=== PATIENT | male | born 1970 | race Caucasian/White ===

== ENCOUNTER 2018-09-14 13:35 | Inpatient (IN) | payer OTHER ==
[~2018-09-14] VITALS: Ht 172.7 cm; Wt 101.8 kg
--- NOTE | 2018-09-14 13:42 | NUR ---
PATIENT PAUL FROM [facility]. C/O ABD PAIN X2 DAYS. SHARP IN NATURE: 11/01. PATIENT IS AAOX4. DENIES HEADACHE AND C/O DIZZINESS UPON MOVEMENT. DENIES HEMATURIA, HEMATEMESIS AND RECTAL BLEEDING. PATIENT PLACED IN TRENDELENBERG. JHON DU.
--- NOTE | 2018-09-14 13:49 | NUR ---
DR SEPULVEDA AT BEDSIDE. MADE AWARE OF PATIENT SITUATION.
--- NOTE | 2018-09-14 14:02 | NUR ---
RT AT BEDSIDE.
--- NOTE | 2018-09-14 14:06 | NUR ---
LAB AT BEDSIDE.
--- NOTE | 2018-09-14 14:15 | NUR ---
PATIENT EXPERIENCING SPLTTING BACK PAIN. DR SEPULVEDA AWARE. PULSES PALP TO JAIDEN FEET. BLE WARM AND MCCRAY.
--- NOTE | 2018-09-14 14:21 | NUR ---
X-RAY AT BEDSIDE FOR CXR.
--- NOTE | 2018-09-14 14:34 | NUR ---
STARTED LEVOPHED AT 2MCG/MIN PER EMAR.
--- NOTE | 2018-09-14 14:37 | NUR ---
US AT BEDSIDE. PT REMAINS C/O 10/10 MID LOWER ABD PAIN. DR SEPULVEDA AWARE.
[2018-09-14] MEDS ORDERED: GOOD SENSE OMEP20 MG PO (14:40)
[2018-09-14] MEDS ORDERED: PROPRANOLOL HCL20 MG PO (14:40)
--- NOTE | 2018-09-14 14:41 | NUR ---
LEVOPHED TITRATED UP TO 4MCG /MIN. IV SITE TO ROSITA ASSESSED AND REMAINS INTACT. NO S/S INFILTRATION.
[2018-09-14 14:44] LABS: PLATELET COUNT 50 x10^3mcL (130-400); RED CELL DISTRIBUTION WIDTH 17.6 % (11.5-14.5)
[2018-09-14 14:46] LABS: CALCIUM 8.2 mg/dL (8.5-10.1); CARBON DIOXIDE 20.8 mmol/L (21-32); CHLORIDE SERUM 105 mmol/L (98-107); CREATININE SERUM 2.5 mg/dL (0.7-1.3); GFR1 30 mL/min; GLUCOSE SERUM 68 mg/dL (74-106); POTASSIUM SERUM 3.9 mmol/L (3.5-5.1); SODIUM SERUM 139 mmol/L (136-145)
--- NOTE | 2018-09-14 14:47 | NUR ---
LEVOPHED TITRATED TO 6MCG/MIN PER EMAR.
[2018-09-14 14:48] LABS: CK-MB 0.7 ng/mL (0-3.6)
[2018-09-14 14:50] LABS: FREE T4 1.38 ng/dL (0.76-1.46); FREE THYROXINE INDEX 2.8 ug/dL (1.4-4.5); T4(THYROXINE) 7.3 ug/dL (4.7-13.3)
[2018-09-14 14:52] LABS: T3 TOTAL 0.92 ng/mL
--- NOTE | 2018-09-14 14:54 | NUR ---
LEVOPHED TITRATED TO 8MCG/MIN PER EMAR.
--- NOTE | 2018-09-14 14:56 | NUR ---
ROSITA IV INFILTRATED. LEVOPHED GTT MOVED TO RIGHT HAND. REMAINS INFUSING AT 8MCG/MIN.
--- NOTE | 2018-09-14 15:05 | NUR ---
IV TO RIGHT HAND INFILTRATED. LEVOPHED GTT STOPPED AT THIS TIME.
--- NOTE | 2018-09-14 15:07 | NUR ---
PT SIGNED SPECIAL PROCEDURE CONSENT FOR CENTRAL LINE PLACEMENT. PLACED IN CHART
[2018-09-14 15:09] LABS: SEGMENTED NEUTROPHILS 52 % (37-75)
[2018-09-14 15:10] LABS: ATYPICAL LYMPH 0 %; BAND NEUTROPHIL 16 % (0-10); BASOPHIL 0 % (0-2); MONOCYTE 0 % (0-7); rbc morphology (normal/abnorm) ABNORMAL (NORMAL)
[2018-09-14 15:11] LABS: PLATELET MORPHOLOGY PLATELETS DECREASED
--- NOTE | 2018-09-14 15:12 | NUR ---
DR SEPULVEDA AT BEDSIDE TO PLACE CENTRAL LINE.
[2018-09-14 15:16] LABS: ALKALINE PHOSPHATASE 109 U/L (46-116); ALT/SGPT 116 U/L (16-63); AST/SGOT 192 U/L (15-37); BILIRUBIN TOTAL 3.3 mg/dL (0.20-1.00); C REACTIVE PROTEIN 0.8 mg/dL (<=0.9); TOTAL PROTEIN, SERUM 6.4 g/dL (6.4-8.2)
[2018-09-14 15:28] LABS: ALBUMIN 2.7 g/dL (3.4-5.0)
--- NOTE | 2018-09-14 15:29 | NUR ---
VERBAL ORDER PER DR SEPULVEDA FOR 500CC BOLUS. LEVOPHED TO BE HELD UNTIL 500CC BOLUS COMPLETE.
[2018-09-14 15:36] LABS: ERYTHROCYTE SED RATE 7 mm/hr (0-15)
--- NOTE | 2018-09-14 15:44 | NUR ---
X-RAY AT BEDSIDE TO CONFIRM PLACEMENT OF CENTRAL LINE.
--- NOTE | 2018-09-14 15:52 | NUR ---
PER DR SEPULVEDA VISUALIZED CENTRAL LINE PLACEMENT. OKAY TO START 500CC BOLUS AT THIS TIME. BOLUS STARTED TO RIGHT CENTRAL LINE DARK [place]UE [place].
--- NOTE | 2018-09-14 16:06 | NUR ---
PATIENT PROVIDED WITH WARM BLANKET. AFEBRILE. TEMP 98.7.
--- NOTE | 2018-09-14 16:37 | NUR ---
LEVOPHED RESTARTED AT 2MCG/MIN IV
--- NOTE | 2018-09-14 17:37 | NUR ---
PT REPORTS 9O INTERMITTENT BACK PAIN AND HIP CRAMPING; AWARE. REMAINS ON LEVOPHED AT 8MCG/MIN
--- NOTE | 2018-09-14 18:06 | NUR ---
REPORT CALLED TO ICU AND GIVEN TO DENISE POWELL.
--- NOTE | 2018-09-14 18:18 | NUR ---
RECIEVED PT VIA GUERNEY ACCOMPANIED BY MICHELLE RN, EDGE WORKER, AND 2 OFFICERS. PT AAOX4. ABLE TO FOLLOW COMMANDS. PERRL NOTED. DENIES HEADACHE. EENT FREE OF DISCHARGE. TRACHEA MIDLINE. NO JVD PRESENT. ON ROOM AIR. BREATHING E/U. CLEAR LUNG SOUNDS TO BUL, DIM TO BLL. SYMMETRICAL CHEST WALL EXPANSION NOTED. DENIES SOB. NO S/S OF RESP DISTRESS NOTED. SINUS TACHY. HR = 102. O2 SAT = 97%. BP = 115/67 (80). SKIN IS WARM/DRY TO TOUCH, MCCRAY/BROWN IN COLOR. R SUBCLAVIAN CVC INTACT, X3 PORTS PATENT, DRESSING CDI. LEVOPHED INFUSING @ 8MCG/MIN. MOD PALPABLE PULSES X4. CAP REFILL <3 SEC. NO EDEMA NOTED. ABD IS ROUNDED AND TENDER. HYPOACTIVE BOWEL SOUNDS X4. NO BM AT THIS TIME. NO PENILE DISCHARGE OR BLEEDING NOTED. NO SCROTAL EDEMA NOTED. VOIDS FREELY VIA URINAL. TRACK [place] TO BLE DUE TO HX OF DRUG ABUSE. DARKENED AREAS TO B/E SHINS NOTED. DRY CRACKLY SKIN TO B/E FEET/HEELS NOTED. R FOOT HANDCUFFED TO BED. 2 OFFICERS AT BEDSIDE.
--- NOTE | 2018-09-14 18:25 | NUR ---
LEVOPHED INFUSING PER EMAR AT 8MCG/MIN. PATIENT AAOX4. TRANSFERRED ON CM WITH DANCE THERAPIST AND MYSELF. DENISE POWELL AT BEDSIDE TO RECEIVE PATIENT.
--- NOTE | 2018-09-14 18:30 | NUR ---
TITRATED LEVOPHED TO 6 MCG/MIN TO ACHIEVE MAP OF 65.
[2018-09-14 18:36] VITALS: BP 115/67
--- NOTE | 2018-09-14 18:54 | NUR ---
TITRATED LEVOPHED TO 5 MCG/MIN. PT'S MAP OF 67.
--- NOTE | 2018-09-14 19:05 | NUR ---
RECEIVED GROUP REPORT FROM MIGUEL WALKER. WILL RESUME CARE.
--- NOTE | 2018-09-14 19:10 | NUR ---
TITRATED LEVOPHED GTT FROM 5MCG/MIN TO 6MCG/MIN. BP 91/45. MAP 60.
--- NOTE | 2018-09-14 19:30 | NUR ---
DR. CASANOVA AT BEDSIDE ASSESSING PT. UPDATES PROVIDED.
--- NOTE | 2018-09-14 19:52 | NUR ---
PT C/O BACK AND ABDOMINAL PAIN 08/31. GIVEN NORCO 5/325MG PO 1 TAB PO. WILL REASSESS FOR RELIEF.
[2018-09-14 20:30] VITALS: BP 115/67
--- NOTE | 2018-09-14 20:37 | NUR ---
1 L FLUID BOLUS STARTED AT THIS TIME PER DR. CASANOVA.
--- NOTE | 2018-09-14 21:00 | NUR ---
RIJ CVC DRESSING HAS MODERATE DRIED BLOOD TO DRESSING. DRESSING REMOVED AND SITE WAS CLEANSED WITH CHOROHEXIDINE SCRUB UTILIZING STERILE TECHNIQUE, NEW DRESSING PLACED AND DATED.
--- NOTE | 2018-09-14 21:28 | NUR ---
CANCELLED DR Fany BELTRAN CONSULT THAT WAS VERBALLY ORDERED BY DR CASANOVA. HAD ORDERED .
--- NOTE | 2018-09-14 21:37 | NUR ---
LITER FLUID BOLUS COMPLETED. BP IS 111/61, MAP 76. LEVO TITRATED DOWN FROM 6 MCG/MIN TO 5 MCG/MIN.
[2018-09-14 21:45] VITALS: BP 103/82
--- NOTE | 2018-09-14 23:30 | NUR ---
LEVO INCREASED TO 7 MCG/MIN DUE TO BP OF 100/45 MAP 64.
--- NOTE | 2018-09-14 23:35 | NUR ---
PATIENT GIVEN TYLENOL PER EMAR FOR TEMP OF 100.1.
[2018-09-15] VITALS (7 sets, daily range): BP systolic 82–111; BP diastolic 32–63
--- NOTE | 2018-09-15 | NUR ---
LEVO INCREASED TO 9 MCG/MIN FOR BP 92/47, MAP 57.
--- NOTE | 2018-09-15 00:15 | NUR ---
LEVO INCREASED TO 12 MCG/ MIN FOR BP 87/37 MAP 56.
--- NOTE | 2018-09-15 00:45 | NUR ---
LEVO INCREASED TO 14 MCG/MIN FOR BP OF 82/39, MAP 58.
--- NOTE | 2018-09-15 01:00 | NUR ---
LEVO INCREASED TO 16 MCG/MIN FOR BP OF 82/31 MAP OF 51.
--- NOTE | 2018-09-15 01:20 | NUR ---
NS 500ML BOLUS GIVEN DUE TO TO LOW B/P. B/P 82/31. MAP 51.
--- NOTE | 2018-09-15 01:27 | NUR ---
KATHY STARTED AT THIS TIME AT 50 MCG/MIN FOR BP OF 84/34, MAP 50.
--- NOTE | 2018-09-15 01:45 | NUR ---
KATHY INCREASED TO 100 MCG/MIN FOR BP OF 46/30 MAP 35.
--- NOTE | 2018-09-15 01:57 | NUR ---
KATHY INCREASED TO 75 MCG/MIN FOR BP OF 46/30 MAP 35.
--- NOTE | 2018-09-15 01:58 | NUR ---
BLOOD PRESSURE STABILIZED AT 104/63, MAP 75.
[2018-09-15 02:28] LABS: AMPHETAMINE QUAL UR POSITIVE (See below)
[2018-09-15 02:42] LABS: UA SPECIFIC GRAVITY >=1.030 (1.005-1.035); microscopic required? YES; urine erythrocyte 3+ (NEGATIVE)
--- NOTE | 2018-09-15 03:20 | NUR ---
TITRATED KATHY-SYNEPHRINE TO 100MCG/MIN. BP 94/44. MAP 61.
--- NOTE | 2018-09-15 03:26 | NUR ---
PATIENT GIVEN TYLENOL PER EMAR FOR HEADACHE.
--- NOTE | 2018-09-15 03:36 | NUR ---
PATIENT GIVEN PHENERGAN PER EMAR FOR NAUSEA.
--- NOTE | 2018-09-15 04:38 | NUR ---
CARDIOGRAPH OPERATOR AT BEDSIDE FOR BLOOD DRAW.
[2018-09-15 04:51] LABS: BASOPHIL % 0 % (0-2); RED CELL DISTRIBUTION WIDTH 17.9 % (11.5-14.5)
[2018-09-15 04:52] LABS: PLATELET COUNT 12 x10^3mcL (130-400)
[2018-09-15 04:57] LABS: CALCIUM 7.3 mg/dL (8.5-10.1); CARBON DIOXIDE 13.5 mmol/L (21-32); POTASSIUM SERUM 4.9 mmol/L (3.5-5.1)
--- NOTE | 2018-09-15 05:20 | NUR ---
SPOKE WITH DR. SUE ON THE TELEPHONE REGARDING LAB VALUES PLT 12, WBC 13.0, BUN 34.0, CREAT 4.0. NO NEW ORDERS AT THIS TIME.
--- NOTE | 2018-09-15 05:50 | NUR ---
TITRATED KATHY-SYNEPHRINE FROM 100MCG/MIN TO 125MCG/MIN. BP 85/47. MAP 61.
--- NOTE | 2018-09-15 07:20 | NUR ---
DR. BURRELL IS AT BEDSIDE ASSESSING THE PATIENT.
--- NOTE | 2018-09-15 08:35 | NUR ---
PATIENT ASSISTED TO BEDSIDE COMMODE. PATIENT PASSED MODERATE AMOUNT OF FORMED STOOL MIXED WITH URINE. PATIENT ASSISTED BACK INTO BED WITHOUT INCIDENT. CIM GUARDS REMAIN AT BEDSIDE.
--- NOTE | 2018-09-15 08:45 | NUR ---
DR CASANOVA AT BEDSIDE TO ASSESS PATIENT. UPDATES PROVIDED BY NURSING INCLUDING CVP OF 2. PER DR CASANOVA, BOLUS OF 1 LITER LR INITIATED AT THIS TIME. WILL CONTINUE TO MONITOR.
--- NOTE | 2018-09-15 08:57 | NUR ---
THE ALLERGY PHYSICIAN IS AT BEDSIDE FOR BLOOD DRAW FOR TYPE AND SCREEN.
--- NOTE | 2018-09-15 09:05 | NUR ---
IVF OF D5NS INCREASED FROM 100 ML/HR TO 150 ML/HR.
--- NOTE | 2018-09-15 09:10 | NUR ---
PATIENT'S BP 113/58, MAP 76. LEVOPHED TITRATED FROM 16 MCG/MIN TO 14 MCG/MIN. WILL CONTINUE TO MONITOR CLOSELY.
--- NOTE | 2018-09-15 09:17 | NUR ---
BP 109/64 WITH MAP 81; NEOSYN WAS TITRATED FROM 125MCG/MIN DOWN TO 100MCG/MIN.
--- NOTE | 2018-09-15 09:31 | NUR ---
BP 100/61 MAP 74; LEVEPHED IS TITRATED FROM 14MCG/MIN DOWN TO 13MCG/MIN.
--- NOTE | 2018-09-15 09:40 | NUR ---
DR. SUH IS AT BEDSIDE ASSESSING THE PATIENT. UPDATE PROVIDED TO THE DOCTOR.
--- NOTE | 2018-09-15 10:19 | NUR ---
DR. SUE IS AT BEDSIDE EXAMING THE PATIENT. UPDATE PROVIDED TO THE DOCTOR.
--- NOTE | 2018-09-15 10:20 | NUR ---
DR SUE SPOKE WITH PATIENT REGARDING BLOOD TRANSFUSION. BENEFITS AND RISKS DISCUSSED. PATIENT STATED HE HAS HAD A TRANSFUSION BEFORE AND AGREES AT THIS TIME. CONSENT OBTAINED AND PLACED IN CHART.
--- NOTE | 2018-09-15 10:35 | NUR ---
BP 80/37 (51); NEOSYN TITRATED FROM 100MCG/MIN UP TO 125MCG/MIN.
--- NOTE | 2018-09-15 11:45 | NUR ---
BP 111/59 AND MAP 77; NEOSYN WAS TITRATED FROM 125MCG/MIN DOWN TO 100MCG/MIN.
--- NOTE | 2018-09-15 12:07 | NUR ---
PATIENT'S BP 118/67, MAP 84. LEVOPHED TITRATED TO 11 MCG/MIN.
--- NOTE | 2018-09-15 13:03 | NUR ---
BP 111/75 (87); LEVEPHED WAS TITRATED FROM 11MCG/MIN DOWN TO 9MCG/MIN.
--- NOTE | 2018-09-15 14:52 | NUR ---
AT 1437: INITIATING PLATELET TRANSFUSION. VS: TEMP 98.0, HR 107, BP 99/49, RR 27, AND O2 SAT 100%. PATIENT WAS INSTRUCTED TO NOTIFIED THE NURSE FOR ANY ADVERSE REACTION. PATIENT VERBALIZED UNDERSTANDING. AT 1452: RECHECKING THE PATIENT IN 15MIN OF PLT TRANSFUSION; PATIENT DENIES ANY ADVERSE REACTION AT THIS TIME. TEMP 99.0, HR 89, BP 120/76, RR 34, AND O2 SAT 98%.
--- NOTE | 2018-09-15 15:03 | NUR ---
BP 125/65 AND MAP 85; LEVEPHED TITRATED FROM 9MCG/MIN DOWN TO 7MCG/MIN.
--- NOTE | 2018-09-15 15:32 | NUR ---
BP 107/66 AND MAP 82; LEVOPHED TITRATED FROM 7MCG/MIN DOWN TO 5MCG/MIN.
--- NOTE | 2018-09-15 15:39 | NUR ---
PLATELET TRANSFUSION 1 UNIT COMPLETED. PATIENT DENIES ANY ADVERSE REACTION. VS CHECKED: TEMP 98.4, HR 104, BP 112/56, RR 34, PO2 100%.
--- NOTE | 2018-09-15 16:04 | NUR ---
SPOKE WITH DR CASANOVA VIA TELEPHONE AND PROVIDED PATIENT UPDATE. PER DR CASANOVA, PLACE PATIENT ON NASAL CANNULA 2LPM AND CONTINUE TO DECREASE THE VASOPRESSORS. WILL ENDORSE TO PRIMARY RN [place].
--- NOTE | 2018-09-15 16:16 | NUR ---
LEVOPHED TITRATED UP TO 7 MCG/MIN FROM 5 MCG/MIN FOR BP 76/28 (50).
--- NOTE | 2018-09-15 18:50 | NUR ---
THE BP 123/67 AND MAP 86; LEVEPHED TITRATED FROM 7MCG/MIN DOWN TO 5MCG/MIN.
--- NOTE | 2018-09-15 19:10 | NUR ---
RECIEVED REPORT FROM LINETTE WALKER. WILL RESUME CARE.
[2018-09-15 20:07] LABS: CREATININE UR 302.1 mg/dL
--- NOTE | 2018-09-15 20:25 | NUR ---
INITIATED 1L NS BOLUS PER DR. CASANOVA ORDER IF CVP <6. CVP 2.
--- NOTE | 2018-09-15 20:45 | NUR ---
PT C/O NAUSEA. GIVEN PHENERGAN 12.5MG IVP. WILL CONTINUE TO MONITOR.
[2018-09-16] VITALS (15 sets, daily range): BP systolic 83–121; BP diastolic 30–71
--- NOTE | 2018-09-16 00:10 | NUR ---
LEVOPHED GTT DECREASED TO 4MCG/MIN. BP 115/78. MAP 88.
--- NOTE | 2018-09-16 00:22 | NUR ---
PT AGITATED. GAVE ATIVAN 1MG PO. WILL REASSESS PT FOR EFFECTIVENESS.
--- NOTE | 2018-09-16 02:30 | NUR ---
PT CONFUSED AND HALLUCINATING AFTER CHARGE NURSE ADMINISTERED AMBIEN 5MG PO. AAOX1 AT THIS TIME. WILL CONTINUE TO MONITOR.
--- NOTE | 2018-09-16 02:49 | NUR ---
PT DESAT TO 79%. INCREASED O2 FROM 2L TO 5L VIA NC. PT IS TACHYPNEIC. RR 32. RT AT BEDSIDE FOR ABG BLOOD DRAW PER MD ORDER.
--- NOTE | 2018-09-16 03:35 | NUR ---
Spoke to Dr. Bentley regarding pt noted with declining respiratory status. O2 Sat 74%, new order obtained. New order for ABG noted carried out. Will continue to monitor.
--- NOTE | 2018-09-16 04:02 | NUR ---
Relayed ABG results to with no new orders. Will continue to monitor.
--- NOTE | 2018-09-16 04:23 | NUR ---
INITIATED 1L NS BOLUS PER MD ORDER. IF CVP <6. CVP 3.
[2018-09-16 05:24] LABS: RED CELL DISTRIBUTION WIDTH 17.9 % (11.5-14.5)
[2018-09-16 05:31] LABS: PLATELET COUNT 19 x10^3mcL (130-400)
[2018-09-16 05:57] LABS: BAND NEUTROPHIL 19 % (0-10); METAMYELOCTE 4 % (0-2); MONOCYTE 4 % (0-7); MYELOCYTE 3 % (0-2); PROMYELOCYTE 4 % (0-0); SEGMENTED NEUTROPHILS 60 % (37-75)
[2018-09-16 06:01] LABS: acanthocyte (spur cell) 2+; rbc morphology (normal/abnorm) ABNORMAL (NORMAL); schistocyte (helmet cell) 1+
[2018-09-16 06:02] LABS: PLATELET MORPHOLOGY PLATELETS DECREASED
[2018-09-16 06:11] LABS: BILIRUBIN TOTAL 8.01 mg/dL (0.20-1.00); CALCIUM 6.4 mg/dL (8.5-10.1); CARBON DIOXIDE 12.2 mmol/L (21-32); PHOSPHOROUS 6.1 mg/dL (2.5-4.9); POTASSIUM SERUM 5.4 mmol/L (3.5-5.1)
[2018-09-16 06:15] LABS: ALBUMIN 2.4 g/dL (3.4-5.0); TOTAL PROTEIN, SERUM 5.4 g/dL (6.4-8.2)
[2018-09-16 06:17] LABS: CREATININE SERUM 4.8 mg/dL (0.7-1.3)
--- NOTE | 2018-09-16 07:05 | NUR ---
GAVE REPORT TO PARK WALKER. ALL QUESTIONS AND CONCERNS ADDRESSED.
--- NOTE | 2018-09-16 07:24 | NUR ---
REPORT TAKEN FROM DENISE GREENBERG. BED IS IN LOWEST POSITION, HOB IS AT MID SARGENT'S, BED BRAKE IS ON, ANKLE IS CUFFED TO BED PER CORRECTIONS DEPT PROTOCOL. PT NOT ORIENTED TO SELF, PLACE, OR TIME. SPEECH IS SLURRED AND INAPPROPRIATE. RIJ INFUSING 0.45% NS + 2 AMPS OF BICARB, LEVOPHED @ 4 MCG/MIN, & NEOSYNEPHRINE @ 100 MCG/MIN. BROWN LUMEN OF RIJ CONNECTED TO CVP MONITOR. PT IS TACHYPNEIC AND RESTLESS, HAS NASAL CANNULA IN PLACE @ 5 L/MIN.
--- NOTE | 2018-09-16 07:34 | NUR ---
LEVOPHED TITRATED UP TO 6 MCG/MIN FROM 4 MCG/MIN, BP 83/34 (57).
--- NOTE | 2018-09-16 07:55 | NUR ---
DR. CASANOVA AT BEDSIDE TO ASSESS PT. PROVIDED UPDATES ON PT STATUS. DR. CASANOVA ORDERED FOR PT TO BE INTUBATED. TELEPHONED RT, RT MADE AWARE.
--- NOTE | 2018-09-16 08:35 | NUR ---
AT BEDSIDE: DR. CASANOVA, GONZALES RN, RONA RN, PARK RN, FARAZ RT, MELISA RT. 0800: PT GIVEN 50 MCG PROPOFOL IVP 0801: PT GIVEN 20 MG ROCURONIUM IVP 0803: PT GIVEN 50 MCG PROPOFOL IVP, BP 84/26, HR 133, SPO2 97% 0805: PT GIVEN 50 MCG PROPOFOL IVP 0807: PT INTUBATED BY DR. CASANOVA WITH 7.5 ETT, @ 25 CM LIP LINE. PT PLACED ON VENTILATOR. VENT SETTINGS: A/C VCV RATE 16, PEEP 5, FIO2 100%, VT 500. 0817: PT RESTLESS & AGITATED, GIVEN 2 MG IVP VERSED PER DR. CASANOVA ORDER. 0825: DR. CASANOVA PLACED R FEMORAL ARTERIAL LINE. PT TOLERATED WELL. 0830: PT ATTEMPTING TO PULL ON TUBING AND LINES, PT PLACED IN SOFT WRIST RESTRAINTS PER DR. CASANOVA VERBAL ORDER.
--- NOTE | 2018-09-16 08:55 | NUR ---
PT RESTLESS, AGITATED. VERSED INITIATED @ 1 MG/HR & FENTANYL INITIATED @ 1 MCG/KG/HR FOR SEDATION.
--- NOTE | 2018-09-16 09:00 | NUR ---
PER MD ORDER, 1 AMP BICARB ADMINISTERED VIA IVP.
--- NOTE | 2018-09-16 09:00 | NUR ---
16F OGT PLACED. BEDSIDE CONFIRMATION BY AIR BOLUS AUSCULTATED OVER STOMACH. AWAITING XRAY FOR PLACEMENT VERIFICATION.
--- NOTE | 2018-09-16 09:30 | NUR ---
DR. OBRIEN AT BEDSIDE, UPDATES PROVIDED BY NURSING. NEW ORDERS RECEIVED, WILL CARRY OUT.
--- NOTE | 2018-09-16 09:45 | NUR ---
DR. SUE AT BEDSIDE TO ASSESS PATIENT. UPDATES PROVIDED BY NURSING.
--- NOTE | 2018-09-16 09:45 | NUR ---
PORTABLE XRAY AT BEDSIDE TO VERIFY PLACEMENT OF ETT & OGT.
--- NOTE | 2018-09-16 10:10 | NUR ---
PT STARTED ON VASOPRESSIN @ 0.01 UNITS/MIN. NEOSYNEPHRINE TITRATED FROM 100 MCG/MIN TO 50 MCG/MIN.
--- NOTE | 2018-09-16 10:25 | NUR ---
IBP 97/43 (61), VASOPRESSIN TITRATED TO 0.04 UNITS/MIN TO MAINTAIN MAP >65.
--- NOTE | 2018-09-16 11:15 | NUR ---
PT ATTEMPTING TO PULL ON LINES AND TUBINGS. FENTANYL INCREASED FROM 1 MCG/KG/HR TO 1.25 MCG/KG/HR.
--- NOTE | 2018-09-16 11:55 | NUR ---
RR 30-40'S, PT APPEARS UNCOMFORTABLE. VERSED TITRATED FROM 2 MG/HR TO 4 MG/HR, FENTANYL INCREASED FROM 1.25 MCG/KG/HR TO 1.5 MCG/KG/HR.
--- NOTE | 2018-09-16 12:30 | NUR ---
PT RESPIRATIONS IN 40'S, APPEARS UNCOMFORTABLE AND RESTLESS. FENTANYL TITRATED FROM 1.5 MCG/KG/HR TO 1.75 MCG/KG/HR. WILL MONITOR PT CLOSELY FOR S/S DISTRESS.
--- NOTE | 2018-09-16 12:54 | NUR ---
FARAZ LUCERO AT BEDSIDE. VENT SETTINGS CHANGED FROM A/C VCV TO A/C PCV. PS 14, RATE 18, PEEP 5, FIO2 70%.
--- NOTE | 2018-09-16 13:43 | NUR ---
NEOSYNEPHRINE TITRATED TO 75 MCG/MIN FROM 50 MCG/MIN FOR MAP 55.
--- NOTE | 2018-09-16 15:05 | NUR ---
Recommendations: 1. Start TF Nepro @10mL/hr, advance 10mL Q4hrs to goal of 50mL/hr: 1200mL, 2160kcal, 97g Pro, 872mL H20 2. H20 flush 275mL Q4hrs (1650 mL)
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
--- NOTE | 2018-09-16 16:30 | NUR ---
LOMBARDI CARE COMPLETED, PT CLEANED DOWN WITH CHG WIPES.
--- NOTE | 2018-09-16 17:59 | NUR ---
FIO2 TITRATED TO 50% BY RT.
--- NOTE | 2018-09-16 18:13 | NUR ---
NEOSYNEPHRINE TITRATED UP TO 75 MCG/MIN FOR ART LINE BP 96/41 (58).
--- NOTE | 2018-09-16 19:10 | NUR ---
RECEIVED REPORT FROM CANELO WALKER. WILL RESUME CARE.
--- NOTE | 2018-09-16 19:25 | NUR ---
RECEIVED PT INTUBATED AND SEDATED ON FENTANYL AT 1.5MCG/KG/HR AND VERSED AT 2MG/HR, RSS 5. 7.5 ETT AT 25LL INTACT AND SECURED. OGT INTACT AND SECURED TO ETT. PT ON LEVOPHED GTT AT 6MCG/MIN, KATHY-SYNEPHRINE AT 75MCG/MIN, AND VASOPRESSIN 0.04UNITS/MIN. SODIUM BICARB 0.45% NS INFUSING AT 100CC/HR. R FEMORAL ARTERIAL LINE WNL, DRESSING CDI. BREATHING E/U. NO RESPIRATORY DISTRESS NOTED. ON VENT PCV-AC MODE WITH SETTINGS OF FIO2 50%, R 18, PEEP, PRESSUE SUPP 14. EENT FREE OF DISCHARGE, SWELLING, AND REDNESS. CAP REFILL < 3 SEC. PULSES PALPABLE. ABDOMEN SOFT, ROUND. BS HYPOACTIVE X 4. NO BM AT THIS TIME. LOMBARDI CATHETER IN PLACE DRAINING VIA GRAVITY ADALID URINE. 2 GUARDS AT BEDSIDE. WILL CONTINUE TO MONITOR.
--- NOTE | 2018-09-16 19:27 | NUR ---
KATHY-SYNEPHRINE TITRATED FROM 75MCG/MIN TO 100MCG/MIN. MAP 58.
--- NOTE | 2018-09-16 21:29 | NUR ---
LEVOPHED TITRATED FROM 6MCG/MIN TO 5MCG/MIN. MAP 88.
--- NOTE | 2018-09-16 23:25 | NUR ---
LEVOPHED TITRATED FROM 5MCG/MIN TO 6MCG/MIN. MAP 61.
[2018-09-17] VITALS (18 sets, daily range): BP systolic 93–127; BP diastolic 4–51
--- NOTE | 2018-09-17 00:28 | NUR ---
DECREASED FENTANYL FROM 1.5MCG/KG/HR TO 1.25MCG/KG/HR TO ACHIEVE RSS 4.
--- NOTE | 2018-09-17 02:16 | NUR ---
DECREASED FENTANYL FROM 1.25MCG/KG/HR TO 1MCG/KG/HR TO ACHIEVE RSS 4.
--- NOTE | 2018-09-17 03:06 | NUR ---
TITRATED VERSED FROM 2MG/HR TO 1.5MG/HR TO ACHIEVE RSS 4.
--- NOTE | 2018-09-17 04:00 | NUR ---
LEVOPHED TITRATED FROM 6MCG/MIN TO 5MCG/MIN. MAP 76.
--- NOTE | 2018-09-17 04:25 | NUR ---
PARTY PLANNER AT BEDSIDE FOR BLOOD DRAW.
[2018-09-17 04:51] LABS: RED CELL DISTRIBUTION WIDTH 18.9 % (11.5-14.5)
--- NOTE | 2018-09-17 04:55 | NUR ---
TITRATED VERSED FROM 1.5MG/HR TO 1MG/HR TO ACHIEVE RSS 4.
[2018-09-17 05:15] LABS: BAND NEUTROPHIL 18 % (0-10); METAMYELOCTE 4 % (0-2); MONOCYTE 4 % (0-7); MYELOCYTE 3 % (0-2); PROMYELOCYTE 4 % (0-0); SEGMENTED NEUTROPHILS 61 % (37-75)
[2018-09-17 05:17] LABS: acanthocyte (spur cell) 3+; rbc morphology (normal/abnorm) ABNORMAL (NORMAL); schistocyte (helmet cell) 1+
[2018-09-17 05:18] LABS: BILIRUBIN TOTAL 10.43 mg/dL (0.20-1.00); CARBON DIOXIDE 10.7 mmol/L (21-32); PLATELET MORPHOLOGY PLATELETS DECREASED
[2018-09-17 05:23] LABS: TOTAL PROTEIN, SERUM 4.7 g/dL (6.4-8.2)
[2018-09-17 05:26] LABS: POTASSIUM SERUM 5.7 mmol/L (3.5-5.1)
[2018-09-17 05:27] LABS: CALCIUM 5.4 mg/dL (8.5-10.1); CREATININE SERUM 5.9 mg/dL (0.7-1.3)
--- NOTE | 2018-09-17 05:30 | NUR ---
TITRATED FENTANYL FROM 1MCG/KG/HR TO 0.75MCG/KG/HR TO ACHIEVE RSS 4.
[2018-09-17 05:32] LABS: PLATELET COUNT 14 x10^3mcL (130-400)
--- NOTE | 2018-09-17 06:12 | NUR ---
MADE DR. SUE AWARE OF LAB VALUES K+ 5.7, ALBUMIN 2.0, PHOS 11.0. NEW TELEPHONE ORDER FOR [employer] 8.4GM OGT ONCE. TELEPHONE ORDER READ BACK.
--- NOTE | 2018-09-17 06:20 | NUR ---
NE0-SYNEPHRINE TITRATED FROM 100MCG/MIN TO 75MCG/MIN. MAP 78.
--- NOTE | 2018-09-17 06:55 | NUR ---
KATHY-SYNEPHRINE TITRATED FROM 75MCG/MIN TO 50MCG/MIN. MAP 74.
--- NOTE | 2018-09-17 07:00 | NUR ---
RECIEVED REPORT FROM DIONICIO WALKER. ALL QUESTIONS ANSWERED AND ADDRESSED. WILL RESUME CARE OF PT.
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
--- NOTE | 2018-09-17 07:05 | NUR ---
GAVE REPORT TO ANDRE WALKER. ALL QUESTIONS AND CONCERNS ADDRESSED.
--- NOTE | 2018-09-17 07:10 | NUR ---
TITRATED VERSED FROM 1 MG/HR TO 0.75 MG/HR TO ACHIEVE RSS = 4.
--- NOTE | 2018-09-17 08:30 | NUR ---
PT'S BP OF 113/51 (72). TITRATED NEOSYNEPHRINE TO 25 MCG/MIN TO ACHIEVE MAP OF 65.
--- NOTE | 2018-09-17 09:00 | NUR ---
NEOSYNEPHRINE TURNED OFF AT THIS TIME. BP = 112/51 (71).
--- NOTE | 2018-09-17 09:23 | NUR ---
MAP OF 58. INITIATED KATHY-SYNEPHRINE @ 50 MCG/MIN. TITRATED LEVOPHED FROM 5 MCG/MIN TO 3 MCG/MIN TO ACHIEVE MAP 65.
--- NOTE | 2018-09-17 09:30 | NUR ---
INITIATED VITAL AF @ 5ML/HR WITH 50CC OF FWF Q4H. GRV = 10.
--- NOTE | 2018-09-17 10:29 | NUR ---
TITRATED VERSED FROM 0.75 MG/HR TO 0.50 MG/HR AND FENTANYL FROM 0.75 MCG/KG/MIN TO 0.5 MCG/KG/MIN TO ACHIEVE RSS = 4.
--- NOTE | 2018-09-17 10:52 | NUR ---
TITRATED LEVOPHED FROM 4 MCG/MIN TO 3 MCG/MIN. MAP OF 70.
--- NOTE | 2018-09-17 11:22 | NUR ---
TITRATED LEVOPHED FROM 3 MCG/MIN TO 2 MCG/MIN TO ACHIEVE MAP OF 65
--- NOTE | 2018-09-17 12:00 | NUR ---
DR. CASANOVA AT BEDSIDE ASSESSING PT. UPDATES PROVIDED. SAID TO WANT KATHY-SYNEPHRINE TITRATED OFF IF POSSIBLE. LASIX GTT TO BE INITIATED @ 5ML/HR WHEN ABLE TO TITRATE PRESSORS OFF. 5% ALBUMIN TO BE GIVEN AT THIS TIME.
--- NOTE | 2018-09-17 12:00 | NUR ---
PER DR. CASANOVA, TITRATE KATHY-SYNEPHRINE TO 40 MCG/MIN TO TRY AND WEAN PRESSOR OFF. WILL CARRY OUT ORDER.
--- NOTE | 2018-09-17 12:20 | NUR ---
MAP OF 55. TITRATED KATHY-SYNEPHRINE TO 50 MCG/MIN TO ACHIEVE MAP OF 65.
--- NOTE | 2018-09-17 12:28 | NUR ---
MAP OF 56. TITRATED LEVOPHED TO 3 MCG/MIN TO ACHIEVE MAP OF 65.
--- NOTE | 2018-09-17 12:33 | NUR ---
MAP OF 54. TITRATED LEVOPHED FROM 3 MCG/MIN TO 4 MCG/MIN.
--- NOTE | 2018-09-17 12:39 | NUR ---
MAP OF 59. TITRATED LEVOPHED FROM 4 MCG/MIN TO 5 MCG/MIN.
--- NOTE | 2018-09-17 14:07 | NUR ---
PAGED DR. ACEVES ABOUT THE STATUS OF PT. STATES THAT HE DOES NOT WANT TO DO DIALYSIS BECAUSE OF PT'S LOW BLOOD PRESSURE. HE ORDERED LASIX 20 MG IVP AND SAID TO CALL BACK ON HOW PT RESPONDS. WILL CARRY OUT ORDER.
--- NOTE | 2018-09-17 14:10 | NUR ---
LASIX GTT TO BE PUT ON HOLD AT THIS TIME DUE TO DR. CASANOVA'S ORDERS OF HOLDING THE MEDICATION UNTIL PT IS ABLE TO WEAN OFF KATHY-SYNEPHRINE.
--- NOTE | 2018-09-17 14:17 | NUR ---
GRV = 150. OK TO ADVANCE TUBE FEEDINGS TO 20 ML/HR PER DR. CASANOVA.
--- NOTE | 2018-09-17 17:00 | NUR ---
MAP OF 78. TITRATED KATHY-SYNEPHRINE TO 25 MCG/MIN TO ACHIEVE MAP OF 65.
--- NOTE | 2018-09-17 17:54 | NUR ---
MAP OF 70. KATHY-SYNEPHRINE TURNED OFF AT THIS TIME.
--- NOTE | 2018-09-17 18:23 | NUR ---
PT HAS A TEMP OF 100.5. COOLING MEASURES INITIATED. LOMBARDI CARE COMPLETED AND CHG WIPES APPLIED. WILL CONT TO MONITOR.
--- NOTE | 2018-09-17 19:10 | NUR ---
RECEIVED PT FROM ANDRE WALKER, SEE NURSING ASSESSMENT FOR MORE DETAILS. RECEIVED PT INTUBATED/SEDATED TO VENT. RIJ, TLC, CDI AND INFUSING. BED AT LOWEST SETTING, CALL LIGHT WITHIN REACH, HOB ELEVATED 30 DEGREES. CIM GUARDS AT BEDSIDE. PT ATTACHED TO FULL ELECTRIC DOLLY OPERATOR AND CONTINUOUS PULSE OXIMETRY. ARTERIAL LINE TO RIGHT FEMORAL CDI.
--- NOTE | 2018-09-17 20:10 | NUR ---
LEVOPHED TITRATED TO 4 MCG/MIN. ARTERIAL LINE MAP=75.
--- NOTE | 2018-09-17 20:19 | NUR ---
DR. FERNANDEZ, SEMICONDUCTOR EQUIPMENT TECHNICIAN AT BEDSIDE FOR ASSESSMENT. UPDATES PROVIDED AND QUESTIONS ANSWERED. WILL AWAIT ORDERS.
--- NOTE | 2018-09-17 21:00 | NUR ---
CENTRAL LINE DRESSING TO RIJ CHANGED USING STERILE TECHNIQUE, NO ACTIVE BLEEDING NOTED. DRESSING CDI.
--- NOTE | 2018-09-17 21:05 | NUR ---
SPOKE WITH DR. ACEVES REGARDING TO CLARIFY CALCIUM GLUCONATE IV ORDER AND VELTASSA WAS GIVEN IN THE AM. PER DR. ACEVES D/C CALCIUM GLUCONATE FOR NOW AND WAIT FOR AM LAB TOMORROW MORNING.
--- NOTE | 2018-09-17 21:34 | NUR ---
DR. BEAUCHAMP AT BEDSIDE FOR ASSESSMENT. UPDATES PROVIDED, QUESTIONS ANSWERED. INFORMED DR. BEAUCHAMP ON MICRO RESULTS OF BLOOD CX AND SPUTUM CX. PER DR. BEAUCHAMP NO NEW ORDERS AT THIS TIME AND WILL CONTINUE MERREM IV.
[2018-09-18] VITALS (19 sets, daily range): BP systolic 87–125; BP diastolic 39–57
--- NOTE | 2018-09-18 00:05 | NUR ---
RT FRAZIER AT BEDSIDE TITRATED FIO2 TO 30%.
--- NOTE | 2018-09-18 03:00 | NUR ---
LEVOPHED TITRATED TO 2 MCG/MIN. ARTERIAL LINE MAP = 70.
--- NOTE | 2018-09-18 04:00 | NUR ---
LEVOPHED TITRATED OFF AT THIS TIME. ARTERIAL LINE MAP= 67.
[2018-09-18 05:26] LABS: RED CELL DISTRIBUTION WIDTH 18.6 % (11.5-14.5)
[2018-09-18 05:30] LABS: PLATELET COUNT 6 x10^3mcL (130-400)
--- NOTE | 2018-09-18 05:30 | NUR ---
FENTANYL TITRATED TO 0.25 MCG/KG/HR. RSS=5.
[2018-09-18 05:39] LABS: BAND NEUTROPHIL 16 % (0-10); METAMYELOCTE 4 % (0-2); MONOCYTE 7 % (0-7); MYELOCYTE 3 % (0-2); PROMYELOCYTE 2 % (0-0); SEGMENTED NEUTROPHILS 60 % (37-75); acanthocyte (spur cell) 3+; rbc morphology (normal/abnorm) ABNORMAL (NORMAL); schistocyte (helmet cell) 1+
[2018-09-18 05:40] LABS: PLATELET MORPHOLOGY PLATELETS DECREASED
[2018-09-18 05:41] LABS: BILIRUBIN TOTAL 11.26 mg/dL (0.20-1.00); CARBON DIOXIDE 18.3 mmol/L (21-32); POTASSIUM SERUM 4.6 mmol/L (3.5-5.1)
[2018-09-18 05:44] LABS: CREATININE SERUM 7.5 mg/dL (0.7-1.3); TOTAL PROTEIN, SERUM 4.4 g/dL (6.4-8.2)
--- NOTE | 2018-09-18 05:45 | NUR ---
VASOPRESSIN TITRATED TO 0.03 UNITS/MIN. ARTERIAL LINE MAP=69.
[2018-09-18 05:48] LABS: CALCIUM 4.9 mg/dL (8.5-10.1); PHOSPHOROUS 9.1 mg/dL (2.5-4.9)
--- NOTE | 2018-09-18 06:10 | NUR ---
DR. SUE MADE AWARE OF PT'S CRITICAL LAB VALUES OF BUN 83, CREATININE 7.5, PLATLET 6, PHOSPHORUS 9.1, CALCIUM 4.9, PTT 61.9. NO NEW ORDERS AT THIS TIME. PER DR. SUE, LET DR. ACEVES AWARE.
--- NOTE | 2018-09-18 06:12 | NUR ---
PAGED DR. ACEVES. PER VE TEACHER, AWAIT CALL BACK.
--- NOTE | 2018-09-18 07:05 | NUR ---
GAVE REPORT TO CHARGE DENISE TA. UPDATES GIVEN, QUESTIONS ANSWERED.
--- NOTE | 2018-09-18 07:45 | NUR ---
RECIEVED REPORT FROM YAMILE WALKER. PT BREATHING EVEN AND UNLABORED ON FULL VENT SUPPORT, PCV-AC, RR 18, PS 14, PEEP 5, FIO2 30%. LUNG SOUNDS CTA TO BUL, O2 SAT 100%. ORAL CARE PROVIDED. NO RESP DISTRESS NOTED. SEDATED ON VERSED AT 0.5MG/HR AND FENTANYL AT 0.25 MCG/KG/HR WITH RSS 5. RESPONSIVE TO PAINFUL/TACTILE STIMULI. GAG REFLEX PRESENT. RIJ CVC PATENT AND INFUSING VASOPRESSIN AT 0.03UNIT/MIN. RIGHT GROIN ART LINE ZEROED AND READING 107/43 MAP 65. CVP ZEROED AND READING 5. OGT SECURED IN PLACE INFUSING VITAL AF AT 20ML/HR WITH 175 ML RESIDUALS NOTED AND REPLACE. HOB ELEVATED. BOWEL SOUNDS ACTIVE X 4 QUADRANTS WITH NO BM NOTED. LOMBARDI SECURED IN PLACE TO GRAVITY DRAIN WITH MINIMAL ADALID URINE OUTPUT NOTED. NO ACTIVE OR OPEN WOUNDS NOTED. NON-PITTING EDEMA NOTED TO BUE/BLE. WEAK BILAT RADIAL AND PEDAL PULSES. BILAT SOFT WRIST RESTRAINTS IN PLACE FOR PT SAFETY PT REACHED FOR ETT WHEN RESTRAINTS ARE OFF. SHACKLE TO RIGHT ANKLE NOTED PER CIM PROTOCOL WITH NO SKIN BREADOWN TO SITE. CORRECTIONAL OFFICERS AT BEDSIDE X2. CALL LIGHT IN REACH. WILL CONT TO MONITOR.
--- NOTE | 2018-09-18 08:30 | NUR ---
RECIEVED REPORT FROM KEYON WALKER. UPDATES PROVIDED. ALL QUESTIONS AND CONCERNS ADDRESSED AT THIS TIME. WILL RESUME CARE.
--- NOTE | 2018-09-18 08:55 | NUR ---
DR. ACEVES NOTIFIED OF PT'S LAB VALUES AND UPDATES ON PATIENT. HE STATED THAT THE PATIENT IS TO BE DIALYZED TODAY. ASKED ABOUT IF HE WANTS TO CONTINUE SODIUM BICARB IN 0.45% NS AND TO DISCONTINUE IT HE DOES NOT NEED IT AT THIS TIME.
--- NOTE | 2018-09-18 08:59 | NUR ---
DR. BEAUCHAMP AT BEDSIDE ASSESSING PT. ALL QUESTIONS AND CONCERNS ANSWERED AND ADDRESSED. NO NEW ORDERS AT THIS TIME.
--- NOTE | 2018-09-18 11:05 | NUR ---
TITRATED VERSED FROM 0.5 MG/HR TO 0.25 MCG/KG/HR TO ACHIEVE RSS OF 4
--- NOTE | 2018-09-18 11:05 | NUR ---
MAP OF 59. TITRATED VASOPRESSION FROM 0.03 UNITS/MIN TO 0.04 UNITS/MIN TO ACHIEVE MAP OF 65.
--- NOTE | 2018-09-18 11:09 | NUR ---
UPON ASSESSING PT, GASTRIC RESIDUALS WERE 375. TUBE FEEDINGS STOPPED AT THIS TIME.
--- NOTE | 2018-09-18 11:52 | NUR ---
SCD'S REMOVED DUE TO PT'S SKIN TEAR TO L AGUIRRE. PT'S PLT COUNT IS 6.
--- NOTE | 2018-09-18 12:12 | NUR ---
MAP OF 55. INITIATED LEVOPHED @ 2MCG/MIN TO ACHIEVE MAP OF 65.
--- NOTE | 2018-09-18 12:16 | NUR ---
DR. FERRELL CALLED AND SAID THAT HE IS GOING TO COME AND PLACE A DIALYSIS CATHETER AROUND 2 AT BEDSIDE.
--- NOTE | 2018-09-18 12:29 | NUR ---
MAP OF 60. TITRATED LEVOPHED TO 3MCG/MIN TO ACHIEVE MAP OF 65.
--- NOTE | 2018-09-18 13:43 | NUR ---
Follow-up Nutrition Assessment: [facility] ICU-7 Dx: Septic shock, liver cirrhosis Labs: (09/18) BH, BUN:83H, Cr:7.5H, Ca:4.9L, Phos:9.1L, T bili:11.26H, AST:647H, ALT:357H, WBC:11.8H, H/H:10.1/29L Meds: Ambien, Ativan, Cephulac, Lasix, Levophed, Merrem, Morphine, Julián-synephrine, [place], Pepcid, Phenergan, Pro-amatine, Vasostrict, Versed Current Nutrition Support:Nepro at 50ml/hr FWF:275ml q 4hr. TF intake: (09/18) 274ml I/O: (09/17)5487/1150(+4337ml) (09/18) 4038/285 (+3753ml) Residuals: (09/17)[id number], 150ml, 100ml, (09/18) 80ml, 175ml, 375ml Weights: (09/16) 102kg (09/18)113kg possbily due to equipment on bed and + fluid balance Skin: BLE dark discoloration, track dean scabs to BLE and BUE, skin tear to chest and skin tear to LLE. Edema: +1 pitting edema to BUE and BLE Last BM: +active bowel sounds Per RN note 09/18, Dr. Haji will come and place dialysis cathter at 1400. During visit, pt was seen +ETT to vent and sedated with fentanyl and versed. TF held due to 375ml gastric residual volume. MAP:67 per supercharger repair supervisor and currently on Levophed and Vasopressin. Pt to get magdalena catheter today. Recommended to continue to hold until BP more stable. Estimated Nutritional Needs based on current body weight:102kg Energy: 2218kcal/day ([id number] for vent support) Protein: 102-122g/day (1.0-1.2g/kg for maintenance) Fluid:1-1.5L +out put or per doctor Nutrition Diagnosis 1. Inadequate protein/energy intake related to medical condition liver cirrhosis as evidenced by <50% PO intake of [place] diet (n/a due to pt on TF) 2. Inadequate enteral infusion related to GRV>300ml as evidenced by TF being held. 3. Excessive fluid intake related to high FWF for dialysis pt as evidenced by postive fluid balance and need for 1-1.5L+output. Intervention 1. Recommend resuming TF of Nepro at 20ml/hr, increase 10ml q 4hr to goal 50ml/hr (2160kcal, 97g protein) once MAP>65. 2. Recommend decrease FWF to 50ml q 4hr to provide 1172ml total fluid. Monitor/Evaluate Previous goal: TF intake at least 75% of estimated needs (not met) Goal: resume TF and TF intake at least 75% of estimated needs Monitor: TF intake/tolerance, Labs, GI function and weights F/U in 2-3 days as high risk: 09/19-
--- NOTE | 2018-09-18 14:12 | NUR ---
MAP OF 70. TITRATED LEVOPHED TO 1 MCG/MIN TO ACHIEVE MAP OF 65.
--- NOTE | 2018-09-18 14:30 | NUR ---
MAP OF 60. TITRATED LEVOPHED TO 2MCG/MIN TO ACHIEVE MAP OF 65.
--- NOTE | 2018-09-18 15:09 | NUR ---
DR. CASANOVA AT BEDSIDE ASSESSING PT. STATES THAT IF POSSIBLE, KEEP VASOPRESSIN @ 0.03 UNITS/MIN. ALSO STATES, THAT IF GASTRIC RESIDUALS SUBSIDE, THEN TO RESTART TUBE FEEDINGS AND HAVE THE 25CC FWF Q4H.
--- NOTE | 2018-09-18 15:48 | NUR ---
MAP OF 62. TITRATED LEVOPHED TO 3 MCG/MIN TO ACHIEVE MAP OF 65.
--- NOTE | 2018-09-18 16:09 | NUR ---
GRV OF 260. TUBE FEEDINGS REMAIN OFF AT THIS TIME.
--- NOTE | 2018-09-18 16:20 | NUR ---
DR. FERRELL AT BEDSIDE ASSESSING PT AND PREPARING FOR MARIAM CATH PLACEMENT. US TECH AT BEDSIDE, DR. FERRELL AT BEDSIDE, ANDRE RN AT BEDSIDE, AND 2 GUARDS AT BEDSIDE. TIME-OUT DONE AND FORM COMPLETED. STERILE TECHNIQUE USED DURING ENTIRE PROCEDURE. DR. FERRELL SUCCESSFULLY PLACED LIJ MARIAM CATHETER WITH NO COMPLICATIONS. DRESSING CDI. 3LB SOUND BAD APPLIED TO SITE TO PREVENT BLEEDING. WILL CONT TO MONITOR.
--- NOTE | 2018-09-18 16:46 | NUR ---
HEPARIN 5,000 UNITS NOT ADMINISTERED DURING MARIAM CATH PLACEMENT BY DR. FERRELL, MEDICATION WASTED IN PYXIS.
--- NOTE | 2018-09-18 17:18 | NUR ---
XRAY AT BEDSIDE.
--- NOTE | 2018-09-18 17:50 | NUR ---
CXR RESULTS BACK FOR MARIAM PLACEMENT AND DR. FERRELL STATES THAT MARIAM IS OK TO USE.
--- NOTE | 2018-09-18 17:51 | NUR ---
[facility] CONTACTED AND SPOKE TO MOROCHO AND INFORMED HER OF STAT ORDER FOR DIALYSIS. PER BAILEE A DIALYSIS NURSE WILL ARRIVE IN APPROXIMATELY ONE HOUR.
--- NOTE | 2018-09-18 18:05 | NUR ---
MAP OF 70. LEVOPHED TITRATED TO 2 MCG/MIN TO ACHIEVE MAP OF 65.
--- NOTE | 2018-09-18 18:12 | NUR ---
GRV OF 275. TUBE FEEDINGS REMAIN OFF AT THIS TIME.
--- NOTE | 2018-09-18 19:01 | NUR ---
REPORT GIVEN TO YAMILE WALKER. UPDATES PROVIDED AND ALL QUESTIONS AND CONCERNS ADDRESSED. WILL ENDORSE CARE.
--- NOTE | 2018-09-18 19:04 | NUR ---
RECEIVED PT FROM ANDRE WALKER, SEE NURSING ASSESSMENT FOR MORE DETAILS. RECEIVED PT INTUBATED/SEDATED TO VENT. RIJ, TLC, CDI AND INFUSING. MONSTER, MARIAM CATH, CDI. BED AT LOWEST SETTING, CALL LIGHT WITHIN REACH, HOB ELEVATED 30 DEGREES. CIM GUARDS AT BEDSIDE. PT ATTACHED TO FULL SECTION PLOTTER OPERATOR AND CONTINUOUS PULSE OXIMETRY. ARTERIAL LINE TO RIGHT FEMORAL CDI.7.5 ETT, 25 LL. ORAL CARE PROVIDED PER VAP PROTOCOL, VENT SETTINGS PCV/AC MODE, 30% FIO2, RATE 18, PEEP 5, PRESSURE 14. LUNG SOUNDS CLEAR TO BUL DIMINISHED BLL. CHEST RISE/FALL SYMMETRIC, E/U VENTED BREATHING. WILL CONT TO MONITOR.
--- NOTE | 2018-09-18 19:05 | NUR ---
CZG=626 ML, RESUMING TUBE FEEDING AT THIS TIME VITAL AF BOLUS 25 CC Q4H, FWF 50 ML Q4H PER DIET ORDER. NO S/S OF N/V.
--- NOTE | 2018-09-18 19:36 | NUR ---
DIALYSIS NURSE DENISE HAYNES AT BEDSIDE FOR DIALYSIS.
--- NOTE | 2018-09-18 20:18 | NUR ---
ONE UNIT OF PLATLET INITIATED AT THIS TIME VERIFIED BY 2 RN'S AT BEDSIDE. PRE VITALS: TEMP: 99.1, PULSE 100, GAMING MANAGER 119/57, RESP 17, O2 100%.
--- NOTE | 2018-09-18 21:20 | NUR ---
PLATELET INFUSION FINISHED AT THIS TIME INFUSED WITH DIALYSIS. TEMP 99.0 PULSE 107, HIGH WORKER 112/60, RESP 16, O2 100. PT SHOWS NO S/S OF ANY ADVERSE TRANSFUSION REACTION.
--- NOTE | 2018-09-18 22:00 | NUR ---
UNIT OF PLATELET FINISHED AT THIS TIME WITH DIALYSIS. TEMP 98.9, PULSE 108, BP 95/52, RESP 16, O2 100%. NO S/S OF ADVERSE TRANSFUSION REACTION.
--- NOTE | 2018-09-18 22:06 | NUR ---
1 UNIT PLATELET INIATED AT THIS TIME WITH DIALYSIS, VERIFED BY 2 RNS. PRE VITALS, TEMP 98.8, PULSE 109, BP 95/52, RESP 16, 02 100%.
--- NOTE | 2018-09-18 22:15 | NUR ---
LEVOHPED TITRATED OFF AT THIS TIME. ARTERIAL LINE MAP=72.
--- NOTE | 2018-09-18 22:17 | NUR ---
PER DIALYSIS, RN. 800CC OUT.
[2018-09-19] VITALS (17 sets, daily range): BP systolic 101–132; BP diastolic 47–66
--- NOTE | 2018-09-19 00:21 | NUR ---
UNIT OF FFP INITIATED AT THIS TIME, VERIFIED BY 2 RN'S. PRE VITAL TEMP 98.1, PULSE 89, BP 108/50, RESP 18, 02 100%. WILL MONITOR FOR ADVERSE TRANSFUSION REACTION.
--- NOTE | 2018-09-19 02:05 | NUR ---
UNIT OF FFP FINISHED AT THIS TIME. PT SHOWS NO S/S OF ANY TRANFUSION REACTION. TEMP 98.5, PULSE 86, BP 102/51, RESP 21, 02 100%.
--- NOTE | 2018-09-19 02:20 | NUR ---
UNIT OF FFP INITIATED AT THIS TIME, VERIFIED BY 2 RN'S. PRE VITAL TEMP 98.4, PULSE 85, BP 105/53, RESP 21, 02 100%. WILL MONITOR FOR ADVERSE TRANSFUSION REACTION.
--- NOTE | 2018-09-19 02:39 | NUR ---
RIGHT FEMORAL ARTERIAL LINE DRESSING CHANGED AT THIS TIME USING STERILE TECHNIQUE. NO S/S OF BLEEDING OR INFECTION NOTED.
--- NOTE | 2018-09-19 03:15 | NUR ---
VASOPRESSIN TITRATED TO 0.03 UNITS/MIN. ARTERIAL LINE MAP = 72.
--- NOTE | 2018-09-19 03:30 | NUR ---
VASOPRESSIN TITRATED TO 0.02 UNITS/MIN. ARTERIAL LINE MAP = 73.
--- NOTE | 2018-09-19 03:45 | NUR ---
UNIT OF FFP FINISHED AT THIS TIME. PT SHOWS NO S/S OF ANY TRANFUSION REACTION. TEMP 98.3, PULSE 86, BP 108/54, RESP 20, 02 100%.
--- NOTE | 2018-09-19 05:30 | NUR ---
PT HAD A LARGE WATERY BM AT THIS TIME, APPROX 500 CC OF LIQUID WATERY BROWN STOOL. PT CLEANED AND CHUCKS CHANGED AT THIS TIME.
--- NOTE | 2018-09-19 05:35 | NUR ---
FOUND NEW SKIN TEAR TO RIGHT EAR, PICTURES PLACED IN CHART. VERSATEL APPLIED, CDI.
--- NOTE | 2018-09-19 05:45 | NUR ---
VASOPRESSIN TITRATED TO 0.03 UNITS/MIN. ARTERIAL LINE MAP = 52.
[2018-09-19 05:54] LABS: BAND NEUTROPHIL 15 % (0-10); METAMYELOCTE 4 % (0-2); MONOCYTE 4 % (0-7); MYELOCYTE 3 % (0-2); PLATELET MORPHOLOGY PLATELETS DECREASED; PROMYELOCYTE 4 % (0-0); SEGMENTED NEUTROPHILS 60 % (37-75); acanthocyte (spur cell) 3+; rbc morphology (normal/abnorm) ABNORMAL (NORMAL); schistocyte (helmet cell) 1+
[2018-09-19 05:55] LABS: PLATELET COUNT 26 x10^3mcL (130-400)
--- NOTE | 2018-09-19 06:15 | NUR ---
LEVOPHED TITRATED BACK ON @ 2 MCG/MIN. ARTERIAL LINE MAP= 62
[2018-09-19 06:21] LABS: CALCIUM 6.4 mg/dL (8.5-10.1); CARBON DIOXIDE 26.8 mmol/L (21-32); POTASSIUM SERUM 3.7 mmol/L (3.5-5.1)
[2018-09-19 06:22] LABS: CREATININE SERUM 7.1 mg/dL (0.7-1.3)
--- NOTE | 2018-09-19 06:25 | NUR ---
DR. SUE MADE AWARE VIA TELEPHONE OF PTS BUN OF 73 AND CREATININE OF 7.1.
--- NOTE | 2018-09-19 07:13 | NUR ---
GAVE REPORT TO DENISE SUE. UPDATES GIVEN, QUESTIONS ANSWERED.
--- NOTE | 2018-09-19 07:45 | NUR ---
PATIENT REMAINS INTUBATED AND SEDATED WITH FENTANYL AT 0.25MCG/KG/HR AND VERSED AT 0.25MG/HR. THE SEDATION JUST WAS ON HOLD; BUT THE PATIENT RESTLESS/AGITATED UPON TACTILE STIMULI: BITING TUBE, MOVING ARMS TOWARD TUBE/LINE. THE SEDATION RESUMED. PATIENT DOES NOT FOLLOW COMMANDS AT THIS TIME. ETT 7.5 SECURED AT 25CM AT LIPLINE. ETT TO VENT VIA PRESSURE MODE: FIO2 30%, RATE 18, PRESSURE 14, AND PEEP 5. OGT IN PLACE AND SECURED TO ETT. OGT PLACEMENT VERIFIED WITH SOME AIR BOLUS. 30ML OF RESIDUAL AT THIS TIME. VITAL AF BOLUS AT 25ML/Q4HR AND FREE WATER FLUSH 50ML/Q4HR. RIJ CVC AND LIJ MARIAM CATH WITH DRESSING INTACT. CVP 7; VASOPRESSIN AT 0.03U/MIN, LEVEPHED AT 2MCG/MIN AND LASIX DRIP AT 5ML/HR. TELE # 7 READS SINUS RHYTHMS AT THIS TIME. ART-LINE TO RIGHT FEMORAL (BP 106/52 AND MAP 70 RIGHT AFTER THE ART-LINE WAS 0 DOWN). LOMBARDI CATH TO GRAVITY DRAINING SCANT AMOUNT OF DARK ADALID URINE. WILL RELEASE SOFT WRIST RESTRAINTS AT BOTH WRIST FOR ROM Q2HR/PRN. SHACKLE TO RLE. HEAD OF BED ELEVATED. EXTREMITIES ELEVATED DUE TO EDEMA. GUARDS AT BEDSIDE.
--- NOTE | 2018-09-19 09:25 | NUR ---
DR. ACEVES IN TO SEE THE PATIENT; UPDATE WAS PROVIDED.
--- NOTE | 2018-09-19 09:40 | NUR ---
DR. SUE IN TO SEE THE PATIENT.
--- NOTE | 2018-09-19 11:05 | NUR ---
PATIENT HAD WATER STOOL AGAIN. PATIENT WAS GIVEN A BED BATH AND CHANGED. FLEXISEAL INSERTED TO THE PATIENT'S RECTUM ORDERED. SOME LIQUID STOOL NOTED IN THE TUBE.
--- NOTE | 2018-09-19 11:09 | NUR ---
DR. CASANOVA IN TO SEE THE PATIENT.
--- NOTE | 2018-09-19 11:20 | NUR ---
HEMODIALYSIS NURSE IS AT BEDSIDE FOR HEMODIALYSIS. LAB AND ORDER PROVIDED TO THE THE HEMODIALYSIS NURSE.
--- NOTE | 2018-09-19 13:55 | NUR ---
NEW VERSED BAG AND FENTANYL BAG AND TUBING CHANGED FOR THE PATIENT DUE TO EXPIRATION.
--- NOTE | 2018-09-19 14:54 | NUR ---
HEMODIALYSIS COMPLETED WITH 1500 ML OF OUTPUT REPORTED BY HEMODIALYSIS NURSE. BP FROM ART-LINE 111/52 (71).
--- NOTE | 2018-09-19 17:07 | NUR ---
BED BATH GIVEN TO THE PATIENT. LOMBARDI CARE; CENTRAL LINE SITE AND ART-LINE SITE CARE PROVIDED TO THE PATIENT.
--- NOTE | 2018-09-19 19:05 | NUR ---
REPORT GIVEN TO ALPHONSO LEOS RN. CONCERNS ANSWERED.
--- NOTE | 2018-09-19 19:15 | NUR ---
RECIEVED REPORT FROM LINETTE WALKER. ALL CONCERNS ADDRESSED. POC DISCUSSED. RESUMED CARE OF PT. SEE SHIFT ASSESSMENT.
--- NOTE | 2018-09-19 21:23 | NUR ---
PT COUGHING BREATHING OVER VENTILATOR SETTINGS, ATTEMPTING TO PULL AT SOFT WRIST RESTRAINTS, ARTERIAL LINE BP IN THE 160'S. VERSED TITRATED TO 1 MG/HR AND FENTANYL TITRATED TO 1 MCG/KG/HR. WILL MONITOR PT CLOSELY.
--- NOTE | 2018-09-19 21:30 | NUR ---
DR BEAUCHAMP @ BEDSIDE. NURSING UPDATES. POC DISCUSSED. NO NEW ORDERS @ THIS TIME.
--- NOTE | 2018-09-19 23:21 | NUR ---
RECIEVED REPORT FROM MICRO OF POSITIVE C. DIFF. PRECAUTIONS IN PLACE AND GUARDS NOTIFIED.
[2018-09-20] VITALS (19 sets, daily range): BP systolic 104–134; BP diastolic 46–65
--- NOTE | 2018-09-20 01:58 | NUR ---
LEVOPHED TITRATED OFF AT THIS DA, ARTERIAL BP OF 110/52 (71). WILL MONITOR CLOSELY.
--- NOTE | 2018-09-20 02:45 | NUR ---
BP MAP OF 59, LEVOPHED STARTED AT 2 MCG/MIN, AND VASOPRESSIN TITRATED DOWN TO 0.02 UNITS/MIN.
--- NOTE | 2018-09-20 04:00 | NUR ---
PT W/ AGITATION. INCREASED SEDATION FROM VERSED 0.25 TO 1 AND FENTANYL FROM 0.25 AND 1. WILL CONT TO MONITOR.
[2018-09-20 05:57] LABS: CALCIUM 7.2 mg/dL (8.5-10.1); CARBON DIOXIDE 26.8 mmol/L (21-32); PHOSPHOROUS 3.3 mg/dL (2.5-4.9); POTASSIUM SERUM 3.4 mmol/L (3.5-5.1)
[2018-09-20 05:58] LABS: ALBUMIN 2.3 g/dL (3.4-5.0)
[2018-09-20 05:59] LABS: CREATININE SERUM 6.1 mg/dL (0.7-1.3)
[2018-09-20 06:00] LABS: BASOPHIL % 0.2 % (0-2); BILIRUBIN TOTAL 14.29 mg/dL (0.20-1.00)
[2018-09-20 06:07] LABS: RED CELL DISTRIBUTION WIDTH 18.2 % (11.5-14.5)
--- NOTE | 2018-09-20 06:10 | NUR ---
PT CLEANED AND LINENS CHANGED. PT TOLERATED WELL. WILL ENDORSE.
[2018-09-20 06:11] LABS: PLATELET COUNT 18 x10^3mcL (130-400)
--- NOTE | 2018-09-20 07:45 | NUR ---
PATIENT REMAINS INTUBATED AND SEDATED WITH FENTANYL AT 1MCG/KG/HR AND VERSED AT 1MG/HR. PATIENT RESTLESS/AGITATED (BITING TUBE, MOVING ARMS TOWARD LINE/TUBE, AND RESISTIVE TO CARE) WITH TACTILE STIMULI BUT DOES NOT FOLLOW COMMANDS. JAIDEN PUPILS WITH SLUGGISH REACTION 2MM TO LIGHT. ETT 7.5 SECURED AT 25CM AT LIPLINE. ETT TO VENT VIA PCV/AC MODE: FIO2 30%, RATE 18, PEEP 5 AND PRESSURE SUPPORT 14. OGT IN PLACE AND SECURED TO ETT. OGT PLACEMENT VERIFIED WITH SOME AIR BOLUS. OGT TO TUBE FEEDING WITH INTERMITTENT BOLUS OF 50ML OF VITAL AF Q4HR AND FREE WATER FLUSH 50ML Q4HR. 80ML OF RESIDUAL NOTED IS REPLACED BACK TO STOMACH VIA OGT. RIJ CVC, LIJ MARIAM CATH AND ART-LINE TO RIGHT FEVMORAL. TELE # 7 READS SINUS RHYTHMS AT THIS TIME. CVP 6. PATIENT IS ON VASOPRESSIN AT 0.02 U/MIN AND LEVEPHED AT 2MCG/MIN. LASIX DRIP AT 5ML/HR. LOMBARDI CATH TO GRAVITY DRAINING DARK ADALID URINE. FLEXISEAL IN PLACE DRAINING LIQUID STOOL. SOFT WRIST RESTRAINTS IN PLACE TO JAIDEN WRISTS, WHICH WILL BE RELEASED FOR ROM Q2HR. SHACKLE TO RLE. GUARDS ARE AT BEDSIDE PER CIM PROTOCOL. HEAD OF BED ELEVATED. ALL EXTREMITIES ELEVATED. CALL LIGHT WITHIN REACH. SIDE RAILS UP X3. BED AT LOWEST POSITION. CONTACT ISOLATION DUE TO POSITIVE C-DIFF IN STOOL.
--- NOTE | 2018-09-20 08:25 | NUR ---
PT IN NAD ON VENTILATOR. ETT SECURED WITH ALLAN. VENT ALARMS AND PARAMETERS VERIFIED. ETT PLACEMENT GOOD, CUFF PRESSURE GOOD. TUBE MOVED FROM LEFT OF MOUTH TO CENTER OF MOUTH. VENT WHEELS LOCKED, PLUGGED INTO RED OUTLET. AMBU BAG AND MASK BEDSIDE. ABG OBTAINED BY RN LINDA PARKER. RESULTS ENTERED. HHN TX GIVEN. WILL CONTINUE TO MONITOR.
--- NOTE | 2018-09-20 09:00 | NUR ---
SEDATION IS ON HOLD FOR CPAP TRIAL AT ABOUT 10 AM.
--- NOTE | 2018-09-20 09:45 | NUR ---
DR. SUE IS AT BEDSIDE EXAMING THE PATIENT AND MADE AWARE THAT THE PATIENT HAS POSITIVE C-DIFF RESULT AND BLOOD GLUCOSE SERUM 70 THIS MORNING. ALSO OTHER LAB RESULTS: K 3.4 AND PLT 18 WERE MENTIONED TO DOCTOR. AWAITING FOR NEW ORDER.
--- NOTE | 2018-09-20 10:01 | NUR ---
PATIENT'S RR DECREASED TO 14 PER TELEPHONE ORDER BY DR CASANOVA. RN NOTIFIED. ATTEMPTED TO PLACE PT ON CPAP PEEP +5, PS12 BUT PT DID NOT HAVE ANY SPONTANEOUS RESPIRATIONS, ONLY HICCUPS. PER RN, PT STARTED HAVING HICCUPS ONCE THE SEDATION WAS WEANED DOWN.
--- NOTE | 2018-09-20 10:30 | NUR ---
THE PATIENT IS GETTING RESTLESS; FENTANYL RESUMED AT 0.25MCG/KG/HR AND VERSED AT 0.25MG/HR.
--- NOTE | 2018-09-20 11:45 | NUR ---
PATIENT RESPONSIVE TO TACTILE STIMULI BUT UNABLE TO FOLLOW ANY COMMANDS; SEDATION IS ON HOLD TO REACH RSS GOAL OF 4.
--- NOTE | 2018-09-20 12:05 | NUR ---
THE PATIENT BITING TUBE AND SHAKING HIS HEAD WITH RESTLESSNESS; SEDATION RESUMED WITH FENTANYL AT 0.25MCG/KG/H AND VERSED AT 0.25MG/HR.
--- NOTE | 2018-09-20 12:20 | NUR ---
DR. CASANOVA IN TO SEE THE PATIENT. UPDATE WAS PROVIDED TO THE DOCTOR. SEDATION IS ON HOLD PER DR. CASANOVA SO THAT DOCTOR DOES ASSESSMENT ON THE PATIENT. ALSO, DR. CASANOVA VERBALLY ORDERED TO INCREASE TUBE FEEDING BOLUS UP TO 75ML Q4HR.
--- NOTE | 2018-09-20 12:39 | NUR ---
WOUND CARE EVALUATION NOTE: REASON FOR EVALUATION: DEEP TISSUE INJURY PRESSURE ULCERS SKIN ASSESSMENT DONE WITH THIS 48 Y/O MALE PT. [place] [facility] [place] [facility] [place]RHOS[place] HEP C MULTIPLE SUBSTANCE ABUSES.ALL ABOVE INFORMATION OBTAINED FROM ADMISSION H&P. PT IS SEDATED WITH INTUBATION. SKIN WARM AND DRY, MULTIPLE TATTOO TO UPPER BODY.BLE NO HAIR. TOES TO DORSAL FEET MOTTLED SKIN POSSIBLE FROM MEDICATION,BLE DARK BROWN PIGMENTATION AND BILATERAL UPPER THIGHS MULTIPLE ECCHYMOSIS, JAUNDICE SKIN COLOR IN GENERNAL, AND +3 EDEMA IN ALL EXTREMITIES. DORSAL PEDAL PULSES DIMINISHED. PLAN OF CARE DISCUSSED WITH DR. SUE, RD AND PRIMARY RN. COMORBIDITIES RELATED TO FURTHER SKIN BREAKS AND UNAVOIDABLE PRESSURE INJURY: INFECTION, SEPTIC SHOCK, HYPOXIA, KIDNEY FAILURE, LOW ALBUMIN LEVEL AND HOB ELEVATED THE MAJORY OF TIMES DUE TO MEDICAL REASONS. INTEGUMENTARY: -RIGHT EAR MULTIPLE DTI WITH LARGEST 1X1CM BLOOD FILLED FLUIDS -MID CHEST/NECK AREA SKIN TEAR 1.5X3.5CM WITH SUPERFICIAL DEPTH, WOUND BED IS 100% GRANULATING TISSUE, MOIST, NO ODOR, TOM-WOUND SKIN INTACT -BILATERAL LOWER EXTREMITIES ANTERIOR AND POSTERIOR WITH MULTIPLE SKIN INTACT BLISTERS THE LARGEST TO LEFT MEDIAL LEG 11X5CM, SUSPECT MORE BLISTERS MAY DEVELOP DUE TO PT. COMPLEX MEDICAL CONDITION. -SACRALCOCCYX PRESSURE INJURY DTI WITH 7X10 CM, BUTTERFLY SHAPE, DARK PURPLE COLOR PERIWOUND SKIN INTACT, WITH SURROUNDING REDNESS INDICATED FURTHER DAMAGE. RECOMMENDATIONS: -APPLY SKIN PREP TO RIGHT EAR DTI BID AND LEAVE IT OPEN TO AIR -APPLY VERSATEL DRESSING TO BLE BLISTERS PRN IF SOILING -CLEANSE SACRALCOCCYX WITH NS. PAT. DRY APPLY OPTIFOAM Q3 DAYS AND PRN IF SOILING -CLEANSE CHEST SKIN TEARS WITH WOUND CARE SOLUTION, PAT DRY, COVER WITH VASETEL DRESSING Q3D AND PRN IF SOILING -APPLY HEEL PROTECTOR TO BILATERAL HEELS WHEN IN BED -OFFLOAD BILATERAL HEELS BY PLACING PILLOWS UNDER CALVES UNLESS OTHERWISE CONTRAINDICATED -PRESSURE REDISTRIBUTION SURFACE THERAPY -TURN AND REPOSITION Q2H, OFFLOAD RIGHT EAR AND SACRALCOCCYX -CONTINUE TO FOLLOW RD RECOMMENDATIONS ALL ABOVE RECOMMENDATIONS DISCUSSED WITH PRIMARY RN WILL FOLLOW UP PT Q7-10 DAYS. PLEASE CONTACT
--- NOTE | 2018-09-20 13:30 | NUR ---
THE ART-LINE BP 126/58 AND MAP 80; LEVOPHED WAS TITRATED FROM 2MCG/MIN DOWN TO 1MCG/MIN. ALSO, SEDATION RESUMED WITH FENTANYL AT 0.25MCG/KG/HR AND VERSED AT 0.25MG/HR BECAUSE THE PATIENT IS GETTING RESTLESS; BITING THE TUBE, ATTEMPTING TO SIT UP.
--- NOTE | 2018-09-20 15:24 | NUR ---
Follow-up Nutrition Assessment: ISAURA/FREDDIE SAEZ HR Dx: Septic shock, liver cirrhosis PMHx: ESLD Cirrhosis, HEP C, multiple substance abuses, ([facility] resident) Labs: (09/20): K 3.4L, BG 70L, BUN 66H, CREAT 6.1H, AST 658H, ALT 270H Meds: Ativen , D50%, Flagyl, humulin, Lasix, phenegran Diet: TF Vital AF 1.2 (orogastric), bolus 50 ml Q4H, FLF 50ml Q4H PO Intake: NPO Weights in kg: (09/17) 111, (09/18) 113.3, (09/19) 113.8, (09/20) 116 Skin: optifoam to sacral-coccygeal area for deep tissue injury. Skin tear, BLE with dark discoloration/blister Niko: 11 I/Os: (09/20) [id number]/3400 (-[id number]) Edema: non-pitting to all extremities GI: Flexiseal in place, draining liquid stool Last BM:09/20 RDN Visit (09/20): Patient intubated and sedated. Patient had hemodialysis on 09/19 with 1500 ml output. FNS received wound care consult on (09/20). Per DENISE Gallegos, TF rate was increased to 75ml Q4H. Did express my concern that the current rate would not meet patient's calorie and protein needs and a higher bolus rate would be required considering wounds. Estimated Nutritional Needs based on current body weight 116 kg Energy: 2218 kcal/day ([id number] for vent support) Protein: 84-91 g/d (1.2-1.3 g/kg/IBW 70kg)- HD, wounds Fluid: per MD as patient on HD Nutrition Diagnosis 1. Inadequate protein energy intake related to medical condition liver cirrhosis as evidenced by low TF rate. 2. Inadequate enteral nutrition infusion related to low TF rate as evidenced by current tube feeding rate meeting <20% of estimated calorie and protein needs. Intervention 1. Recommend Vital AF 1.2 bolus feedings 100 ml Q4H with goal of 200 ml Q4H. Frequency of advancement 25ml Q4H. Goal rate will provide 1440 kcal and 90g protein. Monitor/Evaluate Goal: Have pt meet at least 75% of estimated needs Monitor: PO intake, Labs, GI function F/U in 2-3 days as high risk 09/22-
--- NOTE | 2018-09-20 15:30 | NUR ---
PATIENT IS GETTING MORE RESTLESS; FENTANYL TITRATED FROM 0.25MCG/KG/HR TO 0.5MCG/KG/HR. AND VERSED FROM 0.25MG/HR TO 0.5MG/HR.
--- NOTE | 2018-09-20 15:55 | NUR ---
ATTEMPTED CPAP TWO MORE TIMES EARLIER TODAY, ONCE ON SEDATION AND ONCE OFF. PT HAD HICCUPS BOTH TIMES AND RESPIRATIONS WERE INTERFERRED WITH BY HICCUPS BOTH ATTEMPTS. SPOKE WITH DR CASANOVA WHO ADVISED IT WAS OKAY TO PUT PT BACK ON SEDATION AND ATTEMPT CPAP AGAIN ONCE HICCUPS SUBSIDE. PT IS NOW ON SEDATION, HICCUPS HAVE SUBSIDED. PT PLACED ON CPAP AND DID WELL, PT DOES HAVE PERIODS OF APNEA THAT RESPOND TO LIGHT PHYSICAL STIMULATION - PROBABLY DUE TO SEDATION BEING ON. PT'S TIDAL VOLUMES AVERAGE 500-600ML ON CPAP, RR APPROX 24. RN BEDSIDE.
--- NOTE | 2018-09-20 17:18 | NUR ---
SPOKE WITH BAILEE FROM [facility] ACUTE DIALYSIS AND INFORMED HER PATIENT WILL NEED H.D. TOMORROW AM. BAILEE STATED SOMEONE WOULD BE HERE "FIRST THING IN THE MORNING." WILL ENDORSE TO PRIMARY RN MALINA.
--- NOTE | 2018-09-20 17:40 | NUR ---
PT TAKEN OFF CPAP AND PLACED BACK ON PRESSURE CONTROL TO REST. PT TOLERATED 1.5 HOURS OF CPAP ON .5 OF FENTANYL AND .5 OF VERSED ON A CPAP PEEP OF +5 AND PRESSURE SUPPORT OF 12. RN NOTIFIED.
--- NOTE | 2018-09-20 18:15 | NUR ---
THE PATIENT'S ARTLINE BP 121/68 AND MAP 81; LEVOPHED TURNED OFF.
--- NOTE | 2018-09-20 19:27 | NUR ---
THE PATIENT WAS GIVEN A BED BATH; LINEN AND GOWN CHANGED. HEEL PROTECTORS APPLIED TO BOTH HEELS. REPORT GIVEN TO SEBASTIAN RODRIGUEZ RN. CONCERNS ADDRESSED.
[2018-09-21] VITALS (10 sets, daily range): BP systolic 99–147; BP diastolic 50–67
--- NOTE | 2018-09-21 00:07 | NUR ---
Seen and examined by with no new orders. Will continue to monitor.
[2018-09-21 04:58] LABS: BASOPHIL % 1.6 % (0-2)
[2018-09-21 05:01] LABS: RED CELL DISTRIBUTION WIDTH 18.3 % (11.5-14.5)
[2018-09-21 05:13] LABS: CALCIUM 8.1 mg/dL (8.5-10.1); CARBON DIOXIDE 27.8 mmol/L (21-32); PLATELET COUNT 30 x10^3mcL (130-400); POTASSIUM SERUM 3.1 mmol/L (3.5-5.1)
[2018-09-21 05:17] LABS: ALBUMIN 2.2 g/dL (3.4-5.0); TOTAL PROTEIN, SERUM 5.1 g/dL (6.4-8.2)
[2018-09-21 05:18] LABS: BILIRUBIN TOTAL 17.17 mg/dL (0.20-1.00); CREATININE SERUM 6.6 mg/dL (0.7-1.3)
--- NOTE | 2018-09-21 07:21 | NUR ---
RECIEVED REPORT FROM DENISE RODRIGUEZ TO ASSUME ALL CARES. ALL QUESTIONS AND CONCERNS ADDRESSED. WILL CONTINUE TO MONITOR.
--- NOTE | 2018-09-21 07:32 | NUR ---
DR. CASANVOA PAGED AND MADE AWARE PT SELF-EXTUBATED, SEDATION OFF, AND ABG DRAWN TO BE READ. PER DR. CASANOVA NOTIFY HER IF ABG RESULTS ARE POOR AND CONTINUE TO MONITOR.
--- NOTE | 2018-09-21 07:33 | NUR ---
ANJEL SMITH CALL FOR NURSE, I RAN IN THE ROOM AND FOUND THE PATIENT HAD PARTIALLY EXTUBATED HIMSELF. HIS HAND REMOVED FROM ETT, RT FREDDIE AT BEDSIDE AND REMOVED THE REST OFF THE ETT FROM PATIENT. NASAL OXIMIZER APPLIED AT 5 LPM. CURRENT 02 SAT 93%. NO SIGNS OF RESP DISTRESS. FENTANYL AND VERSED DRIP TURNED OFF. ABG PROVIDED TO RT FREDDIE. DR. CASANOVA CALLED AND MAKE AWARE. WILL CONTINUE TO MONITOR.
--- NOTE | 2018-09-21 07:36 | NUR ---
DR. CASANOVA CALLED AND WOULD LIKE PATIENT TO BE ON HIGH FLOW. RT FREDDIE CALLED AND MAKE AWARE. WILL CONTINUE TO MONITOR.
--- NOTE | 2018-09-21 08:06 | NUR ---
DR. SUE CALLED AND NOTIFIED PT SELF-EXTUBATED AND THAT DR. CASANOVA WAS MADE AWARE. NO FURTHER ORDERS AT THIS TIME. WILL CONT TO MONITOR.
--- NOTE | 2018-09-21 08:20 | NUR ---
RT FREDDIE AT BEDSIDE AND TITRATED THE LPM FROM 15 TO 10 ON THE HIGH FLOW. NO SIGNS OF RESP DISTRESS. WILL CONITNUE TO MONITOR.
--- NOTE | 2018-09-21 08:22 | NUR ---
RIGHT NGT INSERTED BY KEYON, CHARGE NURSE, AIR BOLUS AUSCULATED AND NGT SECURED TO NOSE. KUB DONE TO VERIFY PLACEMENT. WILL CONTINUE TO MONITOR.
--- NOTE | 2018-09-21 09:18 | NUR ---
RECIEVED CALL FROM DIALYSIS NURSE WHO ASKED IF HD CAN BE DONE AROUND [phone] ACEVES TO CONFIRM IF TIME WAS OK AND PER DR. ACEVES "YES THAT'S FINE". PRIMARY RN MADE AWARE OF THE ABOVE.
--- NOTE | 2018-09-21 10:07 | NUR ---
DR. SUE AT BEDSIDE TO ASSESS PATIENT. UPDATES PROVIDED AND POC DISCUSSED. WILL CONTINUE TO MONITOR.
--- NOTE | 2018-09-21 10:55 | NUR ---
DR. BELTRAN AT BEDSIDE TO ASSESS PATIENT. UPDATES PROVIDED AND POC DISCUSSED. WILL CONTINUE TO MONITOR.
--- NOTE | 2018-09-21 12:30 | NUR ---
PICTURE OF THE SKIN TEAR NOTED TO SCROTUM TOOKEN AND PLACED IN CHART FOR PHYSICIAN SIGNATURE. Z-GUARD APPLIED TO SITE AND LEFT ACCELERATOR OPERATOR. SKIN TEAR NOTED TO ANTERIOR NECK AREA WITH OLD VERSATEL DRESSING REMOVED AND A NEW ONE APPLIED C/D/I. [facility] TLC DRESSING CHANGED VIA STERILE TECHNIQUE, SITE IS CLEAN WITHOUT ANY REDNESS OR EDEMA. PATIENT TOLERATED WELL. TEGADERM DRESSING REMOVED FROM LEFT AGUIRRE AREA AND A VERSATEL DRESSING APPLIED C/D/I. WILL CONTINUE TO MONITOR.
--- NOTE | 2018-09-21 14:52 | NUR ---
ARTERIAL LINE DISCONTINUED, SUTURES REMOVED, ARTERIAL LINE CATHETER INTACT. SURGICEL & GAUZE IN PLACE UNDER TEGADERM. NO ACTIVE BLEED AT THIS TIME, SAND BAG REMAINS ON SITE FOR PRESSURE. WILL CONTINUE TO MONITOR.
--- NOTE | 2018-09-21 17:30 | NUR ---
75 ML GASTRIC RESIDUAL ASPIRATED, REPLACED.
--- NOTE | 2018-09-21 18:12 | NUR ---
DR. ACEVES AT BEDSIDE TO ASSESS PT, UPDATES PROVIDED. NO NEW ORDERS AT THIS TIME.
--- NOTE | 2018-09-21 19:15 | NUR ---
RECEIVED PT FROM DENISE NICK AND DENISE DIOR. SEE NURSING ASSESSMENT FOR MORE DETAILS. PT ATTACHED TO FULL ACCOUNTING GENERALIST AND CONTINUOUS PULSE OXIMETRY. HOB ELEVATED 30 DEGREES, CALL LIGHT WITHIN REACH. BED AT LOWEST SETTING. BUE WRIST RESTRAINTS SOFT, FOR PT SAFETY. F/C DRAINING TO GRAVITY ADALID URINE. FLEXISEAL INTACT DRAINING WATERY GREEN STOOL. PT ON ROOM AIR NO S/S OF ANY DISTRESS OR RESP DISTRESS. WILL CONT TO MONITOR.
--- NOTE | 2018-09-21 23:38 | NUR ---
DR. BEAUCHAMP AT BEDSIDE FOR ASSESSMENT, UPDATES PROVIDED. NO NEW ORDERS AT THIS TIME.
--- NOTE | 2018-09-22 00:40 | NUR ---
WOUND CARE PROVIDED PER PRODUCT DEVELOPMENT SCIENTIST RECOMMENDATION. -SKIN PREP APPLIED TO RIGHT EAR AND LEFT PUBLIC HEALTH EDUCATOR, OFFLOADED. -MULTIPLE BLISTERS TO BLE. NEW VERSATEL DRESSING APPLIED. -PT 'S SACRAL COCCYX CLEANED WITH NS, PATTED DRY. APPLIED NEW OPTIFOAM TO SACRUM FOR PT'S DTI. -MID CHEST/NECK SKIN TEAR CLEANSED WITH WOUND CARE SOLUTION, PATTED DRY AND COVERED WITH NEW VERSATEL DRESSING. -SCROTUM SKIN TEAR, APPLIED Z-GUARD, LEFT ANNA. -BLE TOES LEFT PUBLIC HEALTH EDUCATOR, NITROPASTE REMAINS ON 3RD AND 4TH METATARSALS.
--- NOTE | 2018-09-22 02:25 | NUR ---
PT SATURATING @ 92-93%. PT PLACED BACK ON HI FLOW @ 30% FIO2 10 LPM. PT SATURATING NOW @ 95%.
[2018-09-22 03:03] VITALS: BP 128/66
--- NOTE | 2018-09-22 04:40 | NUR ---
IV INITIATED TO LFA 20G, PORT PATENT NO S/S OF INFILTRATION, DRESSING CDI, FLUSHED WITH 10 ML OF NS, +BLOOD RETURN.
[2018-09-22 05:29] LABS: BASOPHIL % 0.5 % (0-2); PLATELET COUNT 56 x10^3mcL (130-400); RED CELL DISTRIBUTION WIDTH 18.3 % (11.5-14.5)
[2018-09-22 05:33] LABS: CALCIUM 7.9 mg/dL (8.5-10.1); CARBON DIOXIDE 27.6 mmol/L (21-32); PHOSPHOROUS 5.4 mg/dL (2.5-4.9); POTASSIUM SERUM 3.4 mmol/L (3.5-5.1)
[2018-09-22 05:37] LABS: ALBUMIN 2.4 g/dL (3.4-5.0); TOTAL PROTEIN, SERUM 5.5 g/dL (6.4-8.2)
[2018-09-22 05:40] LABS: CREATININE SERUM 5.9 mg/dL (0.7-1.3)
--- NOTE | 2018-09-22 06:00 | NUR ---
CRITICAL LAB BUN 89, CREATININE 5.9, TOTAL BILIRUBIN 23. DR. SEU MADE AWARE.
--- NOTE | 2018-09-22 07:12 | NUR ---
GAVE REPORT TO DENISE NICK. UPDATES GIVEN, QUESTIONS ANSWERED.
--- NOTE | 2018-09-22 07:30 | NUR ---
60 ML RESIDUAL ASPIRATED FROM NGT, REPLACED.
[2018-09-22 07:50] VITALS: BP 121/67
--- NOTE | 2018-09-22 10:51 | NUR ---
RECEIVED CALL FROM DR. BATISTA AND PROVIDED HIM WITH UPDATES. NEW ORDERS RECIEVED FOR ECHO AND THYROID PANEL. ORDERS READBACK AND CONFIRMED. PRIMARY RN AWARE.
--- NOTE | 2018-09-22 12:43 | NUR ---
ASPIRATED 40 ML FROM NGT, REPLACED.
--- NOTE | 2018-09-22 12:50 | NUR ---
DR. ACEVES AT BEDSIDE TO ASSESS PT. UPDATES PROVIDED, QUESTIONS ADDRESSED. PLAN PER DR. ACEVES: HEMODIALYSIS TOMORROW, D/C LASIX DRIP. WILL CONTINUE TO ASSESS AND MONITOR.
[2018-09-22 12:58] LABS: T3 TOTAL 0.32 ng/mL
[2018-09-22 13:00] LABS: FREE T4 1.15 ng/dL (0.76-1.46)
--- NOTE | 2018-09-22 13:00 | NUR ---
PERRY, DIETITIAN, AT BEDSIDE. SHE RECOMMENDED INCREASING THE AMOUNT OF VITAL AF BOLUS FEEDING FROM 75 ML Q4H TO 100 ML Q4H. AWAITING CONFIRMATION FROM
[2018-09-22 13:03] LABS: FREE THYROXINE INDEX 1.1 ug/dL (1.4-4.5); T4(THYROXINE) 2.9 ug/dL (4.7-13.3)
--- NOTE | 2018-09-22 13:04 | NUR ---
DIALYSIS NURSE BAILEE CONTACTED AND INFORMED PT HAS ORDERS FOR DIALYSIS TOMORROW.
--- NOTE | 2018-09-22 14:03 | NUR ---
DR. BATISTA AT BEDSIDE TO ASSESS PT. UPDATES PROVIDED, QUESTIONS ANSWERED. NEW ORDER FOR INDERAL 10MG Q8H ENTERED. WILL CARRY OUT ORDERS AND CONTINUE TO ASSESS PT.
--- NOTE | 2018-09-22 14:05 | NUR ---
HEMANGI WITH DIETARY CALLED WITH UPDATE REGARDING INCREASING BOLUS TUBE FEEDING AMOUNT AFTER CONSULTING DR. SUE. DR. SUE AGREED TO INCREASING VITAL AF TUBE FEED BOLUS FROM 75 ML Q4H WITH 50 ML FWF TO 100 ML Q4H WITH 50ML FWF. WILL CARRY OUT ORDERS AND CHECK GASTRIC RESIDUALS TO ASSESS PT TOLERANCE OF FEEDS.
--- NOTE | 2018-09-22 14:17 | NUR ---
Follow-up Nutrition Assessment: HELENA07/A FREDDIE FINN HR Dx: Septic shock, liver cirrhosis PMHx: ESLD Cirrhosis, HEP C, multiple substance abuses, ([facility] resident) Labs: (09/22): K 3.4L, BG 70L, BUN 89H, CREAT 5.9H, AST 685H, ALT 220H, WBC 12.9H Meds: D50%, Flagyl, humulin, Lasix, phenegran, reglan, procrit Diet: TF Vital AF 1.2 (orogastric), bolus 75 ml Q4H, FLF 50ml Q4H PO Intake: NPO Weights in kg: (09/18) 113.3, (09/19) 113.8, (09/20) 116, (09/22) 106 - fluctuations may be d/t edema Skin: optifoam to sacral-coccygeal area for deep tissue injury. Skin tear, BLE with dark discoloration/blister. Jaundice skin Niko: 11 I/Os: (09/22) 1444/3400 (-[id number]) Edema: non-pitting to BUE, +2 BLE GI: Flexiseal in place, draining dark green liquid stool Last BM:09/20 RDN Visit (09/22): Patient is off ventilator. Patient had hemodialysis on 09/19 with 1500 ml output. FNS received wound care consult on (09/20). Per DENISE Gallegos, TF rate was increased to 75ml Q4H. Did express my concern that the current rate would not meet patient's calorie and protein needs and a higher bolus rate would be required considering wounds. Discussed recommendation with Dr. Bentley, he is in agreement to increased bolus rate to 100cc Q4H. Estimated Nutritional Needs based on current body weight 116 kg Energy: 2218 kcal/day ([id number] for vent support) Protein: 84-91 g/d (1.2-1.3 g/kg/IBW 70kg)- HD, wounds Fluid: per MD as patient on HD Nutrition Diagnosis 1. Inadequate protein energy intake related to medical condition liver cirrhosis as evidenced by low TF rate. (ongoing) 2. Inadequate enteral nutrition infusion related to low TF rate as evidenced by current tube feeding rate meeting <20% of estimated calorie and protein needs. (ongoing) Intervention 1. Recommend Vital AF 1.2 bolus feedings 100 ml Q4H with goal of 200 ml Q4H. Frequency of advancement 25ml Q4H. Goal rate will provide 1440 kcal and 90g protein. 2. FWF 50 ml Q4H. Monitor/Evaluate Goal: Have pt meet at least 75% of estimated needs Monitor: TF intake/ tolerance, Labs, GI function F/U in 2-3 days as high risk 09/24-4
--- NOTE | 2018-09-22 15:30 | NUR ---
REHAB PHYSICAL THERAPIST AT BEDSIDE. ASSISTED PT TO SIT AT SIDE OF BED WITH MAXIMUM ASSIST.
[2018-09-22 16:00] VITALS: BP 105/63
--- NOTE | 2018-09-22 16:00 | NUR ---
80 ML GASTRIC RESIDUAL ASPIRATED FROM NGT, REPLACED.
--- NOTE | 2018-09-22 17:49 | NUR ---
COJ TLC DRESSING CHANGED VIA STERILE TECHNIQUE. SITE APPEARS CLEAN, NO S/S LOCAL INFECTION. CATHETER WITHDRAWN BY ~[address] CASANOVA ORDER. RADIOLOGY CALLED TO COME CONFIRM PLACEMENT. PT TOLERATED WELL, WILL CONTINUE TO MONITOR.
--- NOTE | 2018-09-22 19:12 | NUR ---
RECEIVED REPORT FROM PARK WALKER AND OVI WALKER. ASSUMING ALL CARE
[2018-09-22 19:30] VITALS: BP 115/63
--- NOTE | 2018-09-22 19:30 | NUR ---
RECEIVED PT LAYING IN BED. PT IS A/OX1, ORIENTED TO HIS NAME ONLY. PT IS LETHARGIC AT THIS TIME. PT ABLE TO FOLLOW SIMPLE COMMANDS. OPENS EYES TO VERBAL STIMULI. ICTERUS NOTED BILAT. PUPILS WITH SLUGGISH RESPONSE TO LIGHT, 2 MM BILAT. RIGHT NGT INTACT/SECURED. DRY ORAL MUCOSA NOTED. RIJ CVC IN PLACE WITH DRESSING CDI. LIJ MARIAM CATH INTACT/SECURED. TRACHEA MIDLINE. PT IS TACHYPNEIC AT THIS TIME, RR 30'S-40'S. BREATHING IS EVEN AND SHALLOW. LUNGS SOUND CLEAR TO BUL AND DIMIN TO CLL. SYMMETRICAL CHEST EXPANSION NOTED. PT ON HIGH FLOW 30% FIO2 10 LPM. S1/S2 HEART SOUNDS AUSCULTATED. CHEST WALL EQUAL AND SYMMETRICAL. NO S/S OF CP NOTED. HR 94, BP 115/63, MAP 80. CVP=10. PALPABLE PULSES X4 EXTREMITIES. CAP REFILL > 3 SECS. NON PITTING EDEMA NOTED TO BUE AND +2 PITTING EDEMA NOTED TO BLE. PT IS JAUNDICE. NS INFUSING @ 10 ML/HR. GENERALIZED WEAKNESS. PT ON BEDREST. NO JOINT SWELLING/DEFORIMTY NOTED. PT ON BILAT SOFT WRIST RESTRAINT FOR PT SAFETY, GOOD CIRCULATION NOTED. ISOGEL MATTRESS IN PLACE. FLEX BOOTS IN PLACE. VITAL AF TUBE FEEDING INFUSING TO RIGHT NGT @ 75 CC Q4H WITH 50 CC FWF Q4H. GRV=20, REPLACED. TOLERATING WELL. NO N/V NOTED. ABD IS SOFT, ROUND, NONTENDER TO PALPATION. BOWEL SOUNDS ACTIVE X4 QUADRANTS. FLEXISEAL IN PLACE DRAINING VIA GRAVITY WITH LIQUID DARK GREEN COLORED STOOL. LOMBARDI CATH IS IN PLACE/SECURED, DRAINING VIA GRAVITY WITH ADALID COLORED URINE. DTI TO SACRAL-COCCYX AREA, OPTIFOAM IN PLACE. MULTIPLE BLISTERS NOTED TO BLE WITH VERSATEL DRESSING CDI. DARK DISCOLORATION NOTED TO BLE, BLE TOSE WITH NITRO PASTE APPLIED. RIGHT EAR MULTIPLE DTI ANNA, OFFLOADED. SKIN TEAR TO MID CHEST/NECK AREA WITH VERSATEL DRESSING. SKIN TEAR NOTED TO SCROTUM Z-GUARD APPLIED. PT REPOSITIONED Q2H AND PRN FOR COMFORT. TWO CIM GUARDS AT BEDSIDE, RLE HANDCUFF INTACT. BED IN LOW POSITION. CALL LIGHT IN REACH. WILL CONT TO MONITOR
--- NOTE | 2018-09-22 19:35 | NUR ---
AXILLARY TEMP 99.8. COOLING MEASURES IN PLACE. WILL CONT TO MONITOR
--- NOTE | 2018-09-22 20:10 | NUR ---
DR. BEAUCHAMP AT BEDSIDE. UPDATED ON PT'S STATUS. NO NEW ORDERS.
[2018-09-22 23:05] VITALS: BP 129/86
--- NOTE | 2018-09-22 23:14 | NUR ---
AXILLARY TEMP 100.4. PT MEDICATED WITH TYLENOL PER EMAR. COOLING MEASURES REMAIN IN PLACE. WILL CONT TO MONITOR
[2018-09-23] VITALS (7 sets, daily range): BP systolic 108–130; BP diastolic 58–76
--- NOTE | 2018-09-23 00:30 | NUR ---
AXILLARY TEMP 99.5. COOLING MEASURES REMAIN IN PLACE. WILL CONT TO MONITOR
--- NOTE | 2018-09-23 04:35 | NUR ---
FULL BED BATH PROVIDED. GOWN AND LINENS CHANGED. ORAL CARE, PERICARE, AND LOMBARDI CARE PROVIDED. HEELS OFFLOADED. FLEX BOOTS IN PLACE. PRESSURE ULCER NOTED TO LEFT HEEL. PICTURES TAKEN AND PLACED IN THE CHART. BED IN LOW POSITION. CALL LIGHT IN REACH. WILL CONT TO MONITOR
--- NOTE | 2018-09-23 05:00 | NUR ---
SHORTS SIFTER AT BEDSIDE FOR AM LAB DRAW
[2018-09-23 05:15] LABS: BASOPHIL % 0.2 % (0-2)
[2018-09-23 05:18] LABS: PLATELET COUNT 96 x10^3mcL (130-400); RED CELL DISTRIBUTION WIDTH 18.1 % (11.5-14.5)
[2018-09-23 05:37] LABS: CARBON DIOXIDE 30.3 mmol/L (21-32); POTASSIUM SERUM 3.5 mmol/L (3.5-5.1)
[2018-09-23 05:46] LABS: ALBUMIN 2.4 g/dL (3.4-5.0); TOTAL PROTEIN, SERUM 5.6 g/dL (6.4-8.2)
[2018-09-23 05:48] LABS: BILIRUBIN TOTAL 29.2 mg/dL (0.20-1.00); CREATININE SERUM 5.7 mg/dL (0.7-1.3)
--- NOTE | 2018-09-23 07:10 | NUR ---
REPORT GIVEN TO LINETTE WALKER. ALL QUESTIONS/CONCERNS ADDRESSED AT THIS TIME. ENDORSING ALL CARE
--- NOTE | 2018-09-23 07:30 | NUR ---
PATIENT IS LETHARGIC; RESPONSIVE TO VERBAL STIMULI AND ORIENTED TO PERSON AT THIS TIME. PATIENT SLOW TO ANSWER THE QUESTIONS WITH GARBLED SPEECH. PATIENT FOLLOWS SIMPLE COMMANDS. JAIDEN PUPILS WITH SLUGGISH REACTION TO LIGHT. ICTERUS TO BOTH EYES AND JAUNDICED SKIN. NGT TO RIGHT NARE AND CONNECTED TO TUBE FEEDING WITH INTERMITTENT BOLUS 75ML/Q4HR OF VITAL AF AND FREE WATER FLUSH AT 50ML/Q4HR. NGT PLACEMENT VERIFIED WITH SOME AIR BOLUS AND 20ML OF RESIDUAL NOTED AT THIS TIME. ORAL CARE PROVIDED TO THE PATIENT. PATIENT IS ON HIGH FLOW AT 30% FIO2 AND 10L/MIN. BREATHINGS SHALLOW AND TACHYPNEIC. RIJ CVC WITH CVP 7, AND LIJ MARIAM CATH IN PLACE. LOMBARDI CATH TO GRAVITY DRAINING DARK ADALID URINE. FLEXISEAL IN PLACE AND DRAINING LIQUID STOOL. MULTIPLE SKIN TEAR, DTI AND DARK DISCOLORATION (SEE SKIN DOC.). SOFT WRIST RESTRAINTS TO BOTH WRISTS WILL BE RELEASED FOR ROM Q2HR/PRN. HEEL PROTECTORS IN PLACE. PATIENT IS ON ISOGEL MATTRESS. HEAD OF BED ELEVATED. ALL EXTREMITIES ELEVATED. CALL LIGHT WITHIN REACH. SIDE RAILS UP X3. BED AT LOWEST POSITION. THE GUARDS AT BEDSIDE.
--- NOTE | 2018-09-23 10:17 | NUR ---
HEMODIALYSIS NURSE CAME TO BEDSIDE FOR HEMODIALYSIS. HEMODIALYSIS ORDER, LAB RESULTS AND 2BAGS OF 1000ML NS PROVIDED TO THE HD NURSE.
--- NOTE | 2018-09-23 10:23 | NUR ---
DR. SUE IS AT BEDSIDE SEEING THE PATIENT.
--- NOTE | 2018-09-23 11:39 | NUR ---
DR. CASANOVA IS AT BEDSIDE ASSESSING THE PATIENT.
--- NOTE | 2018-09-23 12:00 | NUR ---
TUBE FEEDING WAS ADJUSTED WITH BOLUS 100ML/4HR AND FREE WATER FLUSH 50ML/Q4HR ORDERED. NEW FORMULA BOTTLE AND TUBING ARE CHANGED FOR THE PATIENT.
--- NOTE | 2018-09-23 12:25 | NUR ---
DR. ACEVES-QUALITY ASSURANCE INTERN IS IN TO SEE THE PATIENT.
--- NOTE | 2018-09-23 13:42 | NUR ---
DR. BATISTA IS AT BEDSIDE ASSESSING THE PATIENT. UPDATE PROVIDED TO THE DOCTOR.
--- NOTE | 2018-09-23 14:04 | NUR ---
HEMODIALYSIS COMPLETED WITH 1000ML OUTPUT REPORTED BY HEMODIALYSIS NURSEMAIN.
--- NOTE | 2018-09-23 14:08 | NUR ---
SPEECH THERAPIST IS AT BEDSIDE FOR SWALLOW EVAL.
--- NOTE | 2018-09-23 14:31 | NUR ---
PHYSICAL THERAPY NOTE ATTEMPTED FOR SCHEDULED PHYSICAL THERAPY SESSION. PATIENT IS ON DIALYSIS AT THIS TIME. RE-SCHEDULED FOR AFTERNOON SESSION
--- NOTE | 2018-09-23 15:53 | NUR ---
ATTEMPTING TO CALL PT DEPT 3 TIMES; NO ANSWER. MESSAGE LEFT SAYING THAT PATIENT IS AVAILABLE FOR PT TREATMENT.
--- NOTE | 2018-09-23 16:28 | NUR ---
PHYISCAL THERAPISTAURORA IS AT BEDSIDE FOR PT.
--- NOTE | 2018-09-23 18:36 | NUR ---
PATIENT WAS GIVEN A BED BATH; LINEN AND GOWN CHANGED. TOTAL CARE INCLUDING CVC SITE AND LOMBARDI CATH CARE PROVIDED TO THE PATIENT.
--- NOTE | 2018-09-23 19:10 | NUR ---
RECEIVED REPORT FROM MALINA WALKER. WILL RESUME CARE.
--- NOTE | 2018-09-23 19:15 | NUR ---
RECEIVED PT AAOX1, TO NAME. SPEECH SLOW AND GARBLED. OPENS EYES SPONTANEOUSLY AND IS RESPONSIVE TO VERBAL STIMULI. PUPILS 3MM SLUGGISH. ON HI FLOW WITH FIO2 30%, 10L. BREATHING SYMMETRIC AND SHALLOW. RR 24. LUNG SOUNDS DIMINISHED BILATERALLY. S1S2 AUSCULTATED WITH NO MURMURS NOTED. BP 113/68(88), HR 70. PULSES PALPABLE. 3+ EDEMA NOTED TO BUE AND BLE. RIJ CVC INTACT AND PATENT, DRESSING CDI. LIJ MARIAM CATH, DRESSING CDI. PT RESTLESS AT TIMES. RESTRAINTS IN PLACE TO BUE FOR PT SAFETY. NGT TO R NARE INTACT WITH TF OF VITAL AF 100CC Q4HRS AND FWF OF 50CC Q4HRS. 40CC OD RESIDUAL NOTED, REPLACED. ABDOMEN ROUND, SOFT. BS ACTIVE X 4. NO N/V NOTED. LOMBARDI CATHETER IN PLACE DRAINING VIA GRAVITY ADALID URINE. SCATTERED ECCYMOSIS TO BLE. OPTIFOAM IN PLACE TO SACRAL AREA. DTI TO R EAR AND SCAB TO L EAR. SKIN TEAR TO UPPER CHEST. PT REPOSITIONED TO R SIDE AND BONY PROMINENCES OFFLOADED. BED IN LOW POSITION. CALL LIGHT WITHIN REACH. 2 GUARDS AT BEDSIDE. WILL CONTINUE TO MONITOR.
--- NOTE | 2018-09-23 20:44 | NUR ---
ADDENDUM FOR 09/20/18 AT 1900.RESTRAINTS OFF PATIENT NOT ATTEMPTING TO PULL ANY LINES INCLUDING ETT,BARELY BLE TO MOVE ARMS AND NOT LIFTING ARMS TO ATTEMPT TO PULL ETT OR ANY OTHER LINES IN PLACE,WILL MONITOR CLOSELY.
--- NOTE | 2018-09-23 22:15 | NUR ---
DR. BEAUCHAMP AT BEDSIDE ASSESSING PT. UPDATES PROVIDED.
[2018-09-24 03:17] VITALS: BP 117/73
[2018-09-24 04:47] LABS: BASOPHIL % 0.1 % (0-2); PLATELET COUNT 110 x10^3mcL (130-400); RED CELL DISTRIBUTION WIDTH 19.7 % (11.5-14.5)
--- NOTE | 2018-09-24 04:55 | NUR ---
POURED PIPE MAKER AT BEDSIDE FOR BLOOD DRAW.
[2018-09-24 05:17] LABS: CALCIUM 8.8 mg/dL (8.5-10.1); CARBON DIOXIDE 27.9 mmol/L (21-32); PHOSPHOROUS 4.6 mg/dL (2.5-4.9); POTASSIUM SERUM 3.4 mmol/L (3.5-5.1)
[2018-09-24 05:23] LABS: ALBUMIN 2.5 g/dL (3.4-5.0); TOTAL PROTEIN, SERUM 6.1 g/dL (6.4-8.2)
[2018-09-24 05:24] LABS: BILIRUBIN TOTAL 33.22 mg/dL (0.20-1.00)
--- NOTE | 2018-09-24 07:15 | NUR ---
GAVE REPORT TO JEFERSON WALKER. ALL QUESTIONS AND CONCERNS ADDRESSED.
[2018-09-24 08:30] VITALS: BP 117/72
--- NOTE | 2018-09-24 08:30 | NUR ---
PT RESTING IN BED WITH NO APPARENT SIGNS OF DISTRESS. A/A/O/X1, GARBLED SPEECH. DENIES WILKINSON/DIZZINESS. PUPILS 3MM AND SLUGGISH BILAT. RESPIRATIONS E/U. LUNGS DIM IN BASES. PT ON HIGH FLOW WITH 30% FIO2, 10LPM. NSR ON PASSENGER BARGE MASTER. NO S/S OF CP NOTED. MONSTER BECERRA, DRESSING CDI. BUE SOFT RESTRAINTS IN PLACE, CAP REFILL <3. RIGHT NGT SECURED IN PLACE, INFUSING VITAL AF @100 Q4H WITH FWF50 Q4H. ABDOMEN ROUND AND OBESE. NO S/S OF N/V. FLEXISEAL SECURED IN PLACE WITH MOD DARK GREEN DRAINAGE. BED IN LOWEST POSIITON. CALL LIGHT IN REACH. WILL CONT TO MONITOR
--- NOTE | 2018-09-24 09:55 | NUR ---
AM MEDS GIVEN AT THIS TIME, PT TOLERATED WELL. WILL CONT TO MONITOR
[2018-09-24 12:50] VITALS: BP 117/66
--- NOTE | 2018-09-24 13:20 | NUR ---
DR ACEVES PRESENT AT BEDSIDE TO SEE PT AND DISCUSS POC
--- NOTE | 2018-09-24 13:30 | NUR ---
DR ARAMBULA PRESENT AT BEDSIDE DISCUSSING POC WITH PT
--- NOTE | 2018-09-24 15:05 | NUR ---
REPORT CALLED AND GIVEN TO FELI WALKER. PT TO TRANSFER TO 226B AT THIS TIME. ALL QUESTIONS AND CONCERNS AT THIS TIME. WILL TRANSFER SHORTLY.
--- NOTE | 2018-09-24 16:20 | NUR ---
RECEIVED PATIENT FROM ICU VIA GUERNEY. PATIENT ACCOMPAINED BY ICU NURSE AND DEPUTY. PATIENT IS STABLE NO APPARENT SIGNS OF PAIN. PATIENT IS CONFUSED ORIENTED TO PERSON ONLY. MULTIPLE WOUNDS TO BLE, EDEMA TO BUE, BLE, ON OXYMIZER 6L/MIN. PATIENT HAS LIJ TO HD ACCESS. RIJ FOR IV ACCESS. CIM ACCOMPANUIED BY DEPUTY AT BEDSIDE. LOMBARDI CATH IN PLACE. RECTAL TUBE IN PLACE. ON ISOLATION FOR CDIFF. SAFETY PRECAUTIONS IN PLACE.
--- NOTE | 2018-09-24 17:59 | NUR ---
TUBE FEEDING RESUMED. 100ML BOLUS Q4HOUR. 50ML WATER FLUSH Q4 HR.
--- NOTE | 2018-09-24 18:06 | NUR ---
PATIENT IS STABLE NO APPARENT SIGNS OF PAIN. PATIENT IS CONFUSED ORIENTED TO PERSON ONLY. MULTIPLE WOUNDS TO BLE, EDEMA TO BUE, BLE, ON OXYMIZER 6L/MIN. PATIENT HAS LIJ TO HD ACCESS. RIJ FOR IV ACCESS. CIM ACCOMPANUIED BY DEPUTY AT BEDSIDE. LOMBARDI CATH IN PLACE. RECTAL TUBE IN PLACE. ON ISOLATION FOR CDIFF. SAFETY PRECAUTIONS IN PLACE. TUBE FEEDING IN PLACE. WILL ENDORSE CARE TO SLASHER MACHINE OPERATOR NURSE.
--- NOTE | 2018-09-24 19:06 | NUR ---
ENDORSED CARE TO NATURAL SCIENCES MANAGER NURSE
--- NOTE | 2018-09-24 19:15 | NUR ---
REPORT RECEIVED FROM DAY SHIFT RN. PATIENT WAS SEEN AND IS RESTING COMFORTABLY IN BED. NO DISTRESS NOTED. BREATHING EVEN AND UNLABORED ON 6L OXYMIZER. NO SOB OR RESP DISTRESS NOTED. PATIENT IS LETHARGIC. SLOW RESPONSES. DENIES CHEST PAIN. NO S/S OF PAIN NOTED. NO C/O PAIN. TELE #15 NSR AT 73. IV TO THE RIJ, SL. DRESSING CDI. PATENT AND INTACT. NO REDNESS OR SWELLING NOTED. IV TO LIJ FOR HD. LOMBARDI IN PLACE DRAINING DARK ADALID URINE BY GRAVITY. NO KINKS OR CLOTS NOTED. RECTAL TUBE IN PLACE. LITTLE OUTPUT NOTED. NGT TO THE RIGHT NARE WITH CONTINUOUS TUBE FEEDING OF FORMULA VITAL AF. BOLUS 1000ML FORMULA Q4. FREE WATER FLUSH 50ML/HR Q4H. BILATERAL SOFT WRIST RESTRAINTS IN PLACE. PATIENT ATTEMPTING TO PULL TUBES. CONTACT PRECAUTIONS IN PLACE FOR CDIFF. COMFORT AND SAFETY MEASURES IN PLACE. BED IS LOCKED AND IN THE LOWEST POSITION SIDE RAILS UP X2. CALL LIGHT IS WITHIN REACH. WILL CONTINUE TO MONITOR.
[2018-09-24 20:33] VITALS: BP 128/75
--- NOTE | 2018-09-24 21:45 | NUR ---
RESIDUALS CHECKED BEFORE ADMINISTERED MEDS IN NGT. 60ML NOTED AND RETURNED.
--- NOTE | 2018-09-24 23:52 | NUR ---
PATIENT IS ASKING FOR WATER. EDUCATED PATIENT ON NPO STATUS. ORAL CARE PERFORMED BY BYRON AVALOS
--- NOTE | 2018-09-25 00:23 | NUR ---
100ML OF RESIDUALS NOTED AND RETURNED. TUBE FEEDING VITAL 1.2 BOLUS 100ML Q4H W/ FWF 50ML Q4H. HOB ELEVATED. NO C/O PAIN. CIRCULATION AND SKIN INTERGRTIY WNL. BILATERAL SOFT WRIST RESTRAINTS. SAFETY MEASURES IN PLACE. CALL LIGHT IS WITHIN REACH. WILL CONTINUE TO MONITOR.
--- NOTE | 2018-09-25 03:36 | NUR ---
PATIENT RESTING IN BED. NO DISTRESS NOTED. STATES HE WANTS TO DRINK WATER AND IS THRISTY. EDUCATED PATIENT THAT HE IS NPO AND IS AT RISK OF ASPIRATION. DENIES PAIN. NO DISTRESS NOTED. NGT TO RIGHT NARE IN PLACE WITH TUBE FEEDING. LOMBARDI CATH IN PLACE DRAINING ADALID URINE BY GRAVITY. RECTAL TUBE IN PLACE. NO OUTPUT NOTED. RIJ IN PLACE, CDI. LIJ IN PLACE, CDI. ASSESSED ORIENTED. PATIENT IS A/OX4. GARBLED SPEECH NOTED. BREATHING EVEN AND UNLABORED ON 6L OXYMIZER. BILATERAL SOFT WRIST RESTRAINTS IN PLACE. CIRCULATION AND SKIN INTEGRITY IS WNL. SAFETY MEASURES IN PLACE. CALL LIGHT IS WITHIN REACH. CONTACT PRECAUTIONS IN PLACE. WILL CONTINUE TO MONITOR.
--- NOTE | 2018-09-25 05:25 | NUR ---
PATIENT RESTED IN LONG INTERVALS THROUHGOUT THE NIGHT. NO ACUTE CHANGES NOTED. BREATHING EVEN AND AND UNLABORED ON 6L OXYMIZER. NO DISTRESS NOTED. NO C/O PAIN THROUGHOUT THE NIGHT. DENIES CHEST PAIN. NGT TO R NARE WITH TUBE FEEDING. [facility] CATH. LOMBARDI CATH IN PLACE DRAINING DARK ADALID URINE BY GRAVITY. RECTAL TUBE IN PLACE. BILATERAL SOFT WRIST RESTRAINTS. CIRCULATION AND SKIN INTERGRITY WNL. A/OX4. GARBLED SPEECH NOTED. HEEL PROTECTORS IN PLACE. SAFETY MEASURES IN PLACE. CONTACT PRECAUTIONS IN PLACE. CALL LIGHT IS WITHIN REACH. WILL CONTINUE TO MONITOR AND ENDORSE CARE TO DAY SHIFT RN
[2018-09-25 05:26] VITALS: BP 126/76
--- NOTE | 2018-09-25 06:11 | NUR ---
RECTAL TUBE IS OUT. NO BM NOTED. RESIDUALS CHECKED BEFORE MED ADMINISTERATION. 90ML NOTED AND RETURNED. WILL ENDORSE CARE TO DAY SHIFT RN
--- NOTE | 2018-09-25 07:30 | NUR ---
RECEIVED PT IN BED. ASSESSED AND DOCUMENTED. DENIES PAIN THIS TIME. GAURDS AT BEDSIDE. NGT TO RT NARES WITH BOLUS FEEDING 100ML Q4HR. TOLERATING. NO N/V. ON BILATERAL SOFT WRIST RESTRAINTS FOR PT ATTEMPTING TO PULL LINES. SAFTEY PRECAUTIONS ARE IN PLACE. WILL MONITOR.
[2018-09-25 09:30] VITALS: BP 121/67
--- NOTE | 2018-09-25 12:30 | NUR ---
RESIDUAL CHECKED 40ML. DISCUSSED WITH POTATO CHIP MAKER AND STILL CONTINUING 100ML BOLUS Q4HR.
[2018-09-25 12:45] VITALS: BP 131/70
--- NOTE | 2018-09-25 14:10 | NUR ---
PT IS STABLE. REPOSITIONING Q2HR. DENIES ANY PAIN. STILL ATTEMPTING TO REMOVE LINES, KEEPING JAIDEN. SOFT WRIST RESTRAINTS.
--- NOTE | 2018-09-25 15:11 | NUR ---
Follow-up Nutrition Assessment Dx: Septic shock, Colitis, Liver cirrhosis Labs: (09/24) Na 142, K 3.4L, BG 103, BUN 70H, Cr 4H, AST 473H, ALT 157H, WBC 14.4H, H/H 11.1L/32L Meds: D50%, Flagyl, Humulin, Inderal, Lasix, Mylicon, Pepcid, Phenegran, Pro-Amatine, Procrit, Reglan, Rocephin, Tylenol, Vancocin, Xopenex Current Nutrition Support: NG TF Vital AF 1.2 @ 100 mL Q4H bolus feeds with 50 mL FWF Q4H. TF intake (09/25) 300 mL (09/23) 500 mL. GRV 90 mL (09/25) I and O: (09/25) 650/1050 -400 (09/24) 1412/3900 -2488 (09/23) 570/1700 -1130. Negative fluid balance noted and pt. receiving HD; weight fluctuations are expected. Weights: 103 kg (09/24) Skin: DTI to sacral coccyx region, skin tears to BLE, and jaundice Niko: 11 Edema: +4 BUE and BLE Last BM: dark green stool 50 mL (09/23) with flexiseal in place HD output: (09/24) [address] swallow evaluation pending at this time as of 09/23. Vital AF 1.2 provided in bolus feeds per RN, and pt. is tolerating fairly with gastric residuals 90-100 mL. No GI distress noted during visit. Spoke with RN regarding recommendations; will relay to provider. Estimated Nutritional Needs based on: AJBW 80.3 kg Energy: 8030-9132 kcal (30-32 kcal/kg-HD needs, ESLD, skin integrity) Protein: 96-112 (1.2-1.4 g/kg-HD needs, ESLD, skin integrity) Fluid: per provider d/t edema Nutrition Diagnosis 1. Inadequate protein-energy intake r/t medical condition liver cirrhosis AEB low TF rate. (ongoing) 2. Inadequate EN infusion r/t low TF AEB current tube feeding rate <75% estimated calorie and protein needs. (ongoing-modified) 3. Increased nutrient needs r/t increased metabolic demands AEB potential skin integrity breakdown, HD needs, and history of ESLD and liver cirrhosis. (new) Intervention 1. Consider continuous feedings instead of bolus feeds to decrease GRV. Recommendation for Vital AF 1.2 @ goal rate 65 mL/Hr with FWF as recommended by provider. Start with 10 mL/Hr and increase Q4H if patient is tolerating rate with minimal GRV. Regimen provides >75% estimated kcal and protein needs. 2. Recommendation to review pro-kinetic medication to help decrease GRV. Monitor/Evaluate Previous goal: Have pt. meet at least 75% estimated needs (not met) Goal: TF at least 75% of estimated needs Monitor: TF intake/tolerance, Labs, GI function, weights F/U in 2-3 days as high risk (09/27-09/28)
[2018-09-25 17:10] VITALS: BP 114/62
--- NOTE | 2018-09-25 17:30 | NUR ---
GASTRIC RESIDUAL IS STILL 40ML. CONTINUING 100ML Q4HR. PT IS STABLE. DENIES ANY PAIN.
--- NOTE | 2018-09-25 19:05 | NUR ---
PT REMAINS STABLE. STILL ATTEMPTING TO PULL LINES. KEEPING BILATERAL SOFT WRIST RESTRAINTS STILL. GAVE REPORT TO BURNER HAND NURSE.
--- NOTE | 2018-09-25 19:10 | NUR ---
REPORT RECEIVED FROM DAY SHIFT RN. PATIENT WAS SEEN AND IS RESTING COMFORTABLY IN BED. NO DISTRESS NOTED. BREATHING EVEN AND UNLABORED ON 5L OXYMIZER. NO SOB OR RESP DISTRESS NOTED. NGT TO RIGHT NARE WITH TUBE FEEDING. BILATERAL SOFT WRIST RESTRAINTS IN PLACE DUE TO PATIENT PULLING ON TUBING AND LINES. EDUCATED PATIENT TO NOT PULL ON NGT PATIENT VERBALIZED UNDERSTANDING. IV TO RIJ, SL. PATENT AND INTACT. NO REDNESS OR SWELLING NOTED. [facility] CATH FOR HD. LOMBARDI CATH IN PLACE DRAINING DARK ADALID URINE BY GRAVITY. NO KINKS NOTED. CLOTS NOTED. HEEL PROTECTORS IN PLACE AND OFF LOADED. MULTIPLE WOUNDS NOTED TO BLE. PATIENT HAS GENERALIZED JAUNDICE. COMFORT AND SAFETY MEASURES IN PLACE. BED IS PAOLA AND IN THE LOWEST POSITION. SIDE RAILS UP X2. CONTACT PRECAUTIONS IN PLACE FOR CDIFF. CALL LIGHT IS WITHIN REACH. WILL CONTINUE TO MONITOR.
--- NOTE | 2018-09-25 19:10 | NUR ---
REPORT RECEIVED FROM DAY SHIFT RN. PATIENT WAS SEEN AND IS RESTING COMFORTABLY IN BED. NO DISTRESS NOTED. BREATHING EVEN AND UNLABORED ON 6L OXYMIZER. NO SOB OR RESP DISTRESS NOTED. NGT TO RIGHT NARE WITH TUBE FEEDING. BILATERAL SOFT WRIST RESTRAINTS IN PLACE DUE TO PATIENT PULLING ON TUBING AND LINES. EDUCATED PATIENT TO NOT PULL ON NGT PATIENT VERBALIZED UNDERSTANDING. IV TO RIJ, SL. PATENT AND INTACT. NO REDNESS OR SWELLING NOTED. [facility] CATH FOR HD. LOMBARDI CATH IN PLACE DRAINING DARK ADALID URINE BY GRAVITY. NO KINKS NOTED. CLOTS NOTED. HEEL PROTECTORS IN PLACE AND OFF LOADED. MULTIPLE WOUNDS NOTED TO BLE. COMFORT AND SAFETY MEASURES IN PLACE. BED IS PAOLA AND IN THE LOWEST POSITION. SIDE RAILS UP X2. CONTACT PRECAUTIONS IN PLACE FOR CDIFF. CALL LIGHT IS WITHIN REACH. WILL CONTINUE TO MONITOR.
--- NOTE | 2018-09-25 20:40 | NUR ---
PATIENT REPORTED HE HAD A BM. CHECKED W/ BYRON PIZARRO. NO BM NOTED. PATIENT CLEANED, Z-GAURD APPLIED, AND NEW OPTIFOAM APPLIED TO SCARAL-COCCYX. DARK PURPLE DISCOLORATION WITH OPEN WOUNDS NOTED. NO ODOR NOTED. NO PURULENT DRAINAGE NOTED. ORAL CARE PERFORMED WITH MOUTH SWABS. CHAPSTICK APPLIED. LIPS WERE DRY AND CHAPPED. TOLERATED WELL. DENIES PAIN. PATIENT MADE COMFORTABLY IN BED. SAFETY MEASURES IN PLACE. CALL LIGHT IS WITHIN REACH. WILL CONTINUE TO MONITOR
--- NOTE | 2018-09-25 20:40 | NUR ---
ORAL CARE PERFORMED WITH MOUTH SWABS. CHAPSTICK APPLIED. LIPS WERE DRY AND CHAPPED. TOLERATED WELL
[2018-09-25 21:37] VITALS: BP 113/55
--- NOTE | 2018-09-25 22:03 | NUR ---
RESIDUALS CHECKED BEFORE MED ADMINISTRATION. 10ML OF RESIDUALS NOTED AND RETURNED. RESIDUALS WHITE (TUBE FEEDING COLOR). TUBE FEEDING CHANGED. INTERMITTENT BOLUS 100ML/HR Q4H WITH FWF 50ML Q4H. TOLERATING FEEDING WELL. NO C/O PAIN. NO DISTRESS NOTED. NITRO PASTE APPLIED TO TOES PER ORDER. EDUCATED PATIENT ON ALL MEDS ADMINISTERED. BREATHING EVEN AND UNLABORED ON 5L OXYMIZER. PATIENT IS WATCHING TV. SAFETY MEASURES IN PLACE. CONTACT PRECAUTIONS IN PLACE. BILATERAL SOFT WRIST RESTRAINTS IN PLACE. CIRCULATION AND SKIN INTEGRITY WNL. CALL LIGHT IS WITHIN REACH. WILL CONTINUE TO MONITOR
--- NOTE | 2018-09-26 00:31 | NUR ---
ADMINISTERED MIDNIGHT MEDS. RESIDUALS CHECKED BEFORE MED ADMINISTRATION. 35ML OF RESIDUALS NOTED AND RETURNED. TOLERATING TUBE FEEDING WELL. NO DISTRESS NOTED. BREATHING EVEN ON 5L OXYMIZER. RIJ INFUSING FLAGYL WELL. ALL LINES PATENT AND FLUSHES WELL. (3 LUMEN). BILATERAL SOFT WRIST RESTRAINTS IN PLACE. CIRCULATION AND SKIN INTEGRITY WNL. FC DRAINING DARK ADALID URINE BY GRAVITY. SAFETY MEASURES IN PLACE. CALL LIGHT IS WITHIN REACH. WILL CONTINUE TO MONITOR.
--- NOTE | 2018-09-26 02:45 | NUR ---
PATIENT RESTING IN BED WATCHING TV. NO DISTRESS NOTED. BREATHING EVEN AND UNLABORED ON 5L OXYMIZER. DENIES PAIN. BILATERAL SOFT WRIST RESTRAINTS IN PLACE. CIRCULATION AND SKIN INTEGRITY WNL. NGT TO R NARE WITH TUBE FEEDING. SAFETY MEASURES IN PLACE. CALL LIGHT IS WITHIN REACH. WILL CONTINUE TO MONITOR.
[2018-09-26 05:20] VITALS: BP 114/58
[2018-09-26 06:33] LABS: BASOPHIL % 0.4 % (0-2); PLATELET COUNT 157 x10^3mcL (130-400)
[2018-09-26 06:36] LABS: RED CELL DISTRIBUTION WIDTH 23.1 % (11.5-14.5)
--- NOTE | 2018-09-26 06:48 | NUR ---
RESTING IN LONG INTERVALS THROUGHOUT THE NIGHT. BREATHING EVEN ON 6L OXYMIZER. NO DISTRESS NOTED. TACHYPNEIC AT TIMES. RT PROTOCOL. NO C/O PAIN THROUGHOUT THE NIGHT. DENIES CHEST PAIN. NSR. NGT TO RIGHT NARE WITH TUBE FEEDING. 0ML RESDIUALS NOTED AT THIS TIME. RESECURED NGT. RIJ WITH ALL 3 LUMENS PATENT AND INTACT. LIJ FOR HD. LEFT HAND WITH 4+ PITTING EDEMA, MORE SWOLLEN THAN START OF SHIFT. JAIDEN SOFT WRIST RESTRAINTS IN PLACE. CIRCULATION AND SKIN INTEGRITY WNL. RELEASED FOR ROM EXERCISES. LOMBARDI IN PLACE DRAINING DARK ADALID URINE BY GRAVITY. 200ML OUTPUT NOTED. LOW URINE OUTPUT. NO BM. HEEL PROTECTORS ON AND OFF LOADED. GENERALIZED JAUNDICE AND TO SCLERA. ALL NEEDS AND CONCERNS ADDRESSED. SAFTEY MEASURES IN PLACE. CONTACT PRECAUTIONS IN PLACE. CALL LIGHT IS WITHIN REACH. WILL ENDORSE CARE TO DAY SHIFT RN
[2018-09-26 06:53] LABS: CALCIUM 8.8 mg/dL (8.5-10.1); CARBON DIOXIDE 26.3 mmol/L (21-32); PHOSPHOROUS 5.8 mg/dL (2.5-4.9); POTASSIUM SERUM 3.8 mmol/L (3.5-5.1); TOTAL PROTEIN, SERUM 6.5 g/dL (6.4-8.2)
[2018-09-26 07:06] LABS: ALBUMIN 2.3 g/dL (3.4-5.0); BILIRUBIN TOTAL 36.3 mg/dL (0.20-1.00); CREATININE SERUM 4.3 mg/dL (0.7-1.3)
--- NOTE | 2018-09-26 07:30 | NUR ---
PT IS AAOX3-4 SLOW TO SPEAK. TELE [address] READING NSR. RESP EVEN, SHALLOW AND UNLABORED. LUNG SOUNDS DIMINISHED BILATERALLY. ON 02 5 L OXYMIZER. ABDOMEN SOFT, NONTENDER, NONDISTENDED. PT HAS LONA AND BLE 4+ PITTING EDEMA. PERIPHERAL PULSES WEAK. LOMBARDI CATH IN PLACE DRAINING DARK YELLOW URINE TO GRAVITY. PT RIJ CENTRAL LINE 3 PORTS FLUSHED AND PATENT COVERED WITH CDI OCCLUSIVE DRESSING. PT HAS L IJ QUINTORN CATH FOR HD. ALL 3 PORTS FLUSHED AND PATENT, COVERED WITH CDI DRESSING. PT HAS BILARAL EAR DTI SENIOR TECHNICAL MANAGER. L UPPER CHEST SKIN TEAR COVERED WITH CDI DRESSING. BILATERAL FOOT BLISTERS ANNA, FOOT ULCER SENIOR TECHNICAL MANAGER WITH HEEL PROTECTORS IN PLACE. PT HAS SACRAL COCCYX WOUND COVERED WITH CDI OPTIFORM. BUE SOFT WRIST RESTRAINTS IN PLACE. SITES WNL. PT WILL BE TURNED AND REPOSITIONED Q 2 HOURS AND PRN. 2 GUARDS AT BESIDE ON ONE TO ONE SUPERVISION. TELE [address] READING NSR. CALL LIGHT WITHIN REACH. BED IN LOWEST POSITION.
[2018-09-26 07:56] LABS: rbc morphology (normal/abnorm) ABNORMAL (NORMAL)
[2018-09-26 07:57] LABS: target cell (codocyte) 1+
--- NOTE | 2018-09-26 08:20 | NUR ---
PT RECEIVING BREATHING TX AT THIS TIME.
--- NOTE | 2018-09-26 08:33 | NUR ---
R/T FRANKLIN REPORTS PT VOLUME ON I/S HAS DECREASED FROM 1500ML YESTERDAY 09/25, TO 1000ML TODAY. I/S UTILIZATION WILL BE ENCOURAGED Q HOUR THIS SHIFT. PT EDUCATED ON THE USE AND FREQUENCY. PT VERBALIZED UNDERSTANDING.
--- NOTE | 2018-09-26 10:30 | NUR ---
RECEIVED ORDER FROM DR. ACEVES, PT TO HAVE DIALYSIS TODAY. CALL MOROCHO WITH DIALYSIS AND MAKE HER AWARE. MOROCHO WILL CALL DR. ACEVES FOR DIALYSIS ORDER. SOFIA MADE AWARE OF DIALYLSIS ORDER AND STATED SHE WILL CALL THIS RN TO CONFIRM THE SPECIFIC DIALYSIS ORDER. RECEIVED ORDER FROM DR. SUE D/C NG TUBE BOLUS FEEDING ORDER. NEW ORDER, VITAL AF 1.2 VIA NGT. START AT 25ML TO REACH GOAL OF 65ML/HR. ADVANCE FEEDING 10ML / 4 HOURS UNTIL 65ML/HR CONTINUAL FEEDING GOAL IN MET. HOLD IF RESIDUAL =250ML. RESUME FEEDING WHEN RESIDUAL =150ML. ORDER NOTED AND CARRIED OUT. PT MADE AWARE.
[2018-09-26 10:38] VITALS: BP 119/70
--- NOTE | 2018-09-26 12:52 | NUR ---
PT LETHARGIC AND SLOW TO SPEAK. GTUBE AUSCULTATED, IN PLACE AN PATENT. PT TOLERATING GTUBE FEEDING WITH 25ML RESIDUAL NOTED. GTUBE MEDS GIVEN AND TUBE FLUSHED WITH 30 ML WATER. PT ON BILATERAL SOFT WRIST RESTRAINTS. SITES WNL, NO SKIN IRRITATION, SWELLING OR REDNESS NOTED. PT DENIES PAIN AT THIS TIME. CALL LIGHT WITHIN REACH. 2 GUARDS AT BESIDE ON ONE TO ONE SUPERVISION.
[2018-09-26 13:28] VITALS: BP 110/58
--- NOTE | 2018-09-26 13:30 | NUR ---
NITROL PASTE APPLIED TO BILATERAL R AND L TOES. DUE MED GIVEN. NO RESIDUAL IN GTUBE NOTED. PATENT AND FLUSHED WITH 30ML WATER. PT DENIES PAIN AT THIS TIME. CALL LIGHT WITHIN REACH. CONTACT PRECAUTIONS MAINTAINED. 2 GUARDS AT BEDSIDE.
[2018-09-26 13:52] VITALS: BP 110/58
--- NOTE | 2018-09-26 14:19 | NUR ---
RECEIVED PT ON A GUERNY FROM ER. RECEIVED REPORT FROM DENISE MILLER. PT IS AA0X4. TELE [address] READING SR WITH PAC. PT HAS C/O NONRADIATING C/P. TORADOL WILL BE GIVEN. RESP SHALLOW WITH SOB. LUNG SOUNDS CONGESTED BILATERALLY. PT ON HIGH O2 AT 30LPM, 35% FI02. NO COUGH NOTED. ABODOMEN SOFT, NONTENDER, NONDISTENDED. BOWEL SOUNDS ACTIVE X4 QUADS. SKIN CDI. NO EDEMA. PERIPHERAL PULSES MODERATELY PALPABLE. IV CATH TO LAC PATENT, NS LOCKED. SITE WNL. NO S/S OF INFECTION OR INFILTRATION NOTED. CALL LIGHT WITHIN REACH. BED IN LOWEST POSITION. ORIENTED PT TO ROOM AND CALL LIGHT.
--- NOTE | 2018-09-26 15:30 | NUR ---
RESIDUAL CHECKED AND FOUND TO BE AT 50ML. VITAL AF 1.2 ADVANCED 10ML. TUBE FEEDING NOW 35ML/HOUR. RESIDUAL TO BE CHECKED AGAIN AT 1930. HOB AT 40 DEGREES. CALL LIGHT WITHIN REACH. BILATERAL WRIST RESTRAINTS IN PLACE, NO S/S OF REDNESS, SWELLING OR SKIN IRRITATION.
--- NOTE | 2018-09-26 15:49 | NUR ---
SPOKE WITH S/T THERAPIST DESTINY AND MICAH WITH RADIOLOGY. PT WILL HAVE XRAY VIDEO SWALLOW EVAL ON 09/29/18 AT 1100 AM. PT MADE AWARE.
[2018-09-26 16:31] VITALS: BP 112/71
--- NOTE | 2018-09-26 17:19 | NUR ---
AIRMATRESS PLACED, NEW SHEETS AND BLANKETS PLACED. CLEANSED SACRUUM WITH N/S APPLIED OPTIFOAM, CDI. PERICARE COMPLETED. GOWN CHANGED. BED IN LOW POSITION. CALL LIGHT WITHIN REACH. OXYMIZER IN PLACE. 2 GUARDS AT BEDSIDE ON ONE TO ONE SUPERVISION.
--- NOTE | 2018-09-26 19:36 | NUR ---
PT IS AAOX3-4 WITH SLOW SPEECH. RESP EVEN AND UNLABORED. PT ON OXIMIZER AT [address] READING NSR. PT DENIES PAIN AND DISCOMFORT. RIJ PATENT SITE WNL. LIJ PATENT SITE. HEEL PROTECTORS AND AIRMATRESS IN PLACE. PT TURNED AND REPOSITIONED Q 2 HOURS THROUGHOUT SHIFT. TWO GUARDS AT BESIDE ON ONE TO ONE SUPERVISION. NGT IN PLACE, PATENT. CONTACT PRECAUTIONS MAINTAINED THROUGH OUT SHIFT. HEMODIALYSIS NURSE GIVEN ORDERS AND FLUIDS. ALL CARE ENDORSED TO DENISE ESTRADA.
[2018-09-26 19:45] VITALS: BP 118/72
--- NOTE | 2018-09-26 19:45 | NUR ---
RECEIVED PT ASLEEP BUT EASILY AROUSABLE.SLOW TO RESPOND WITH GARBLED SPEECH.BREATHING EASY AND NON-LABORED.OXIMIZER @ 4L/MIN.O2 SAT @ 97%.DIMINISHED BREATHSOUNDS.NO COUGHING/CONGESTION NOTED.TLC TO R IJ IN PLACED.QUINTONCATH WITH PIGTAIL TO L IJ.NGT TO R NARES TO CONTINOUS FEEDING VITAL AF 1.2 @ 45 ML/HR AT THIS TIME WITH GOAL OF 65 ML/HR.NO RESIDUAL NOTED.F/C TO DARK ADALID COLORED URINE.BILATERAL SOFT WRIST RESTRAINTS IN PLACED TO PREVENT PULLING OUT LINES.SWELLING TO BOTH HANDS NOTED.BLE NOTED SWELLING WELL.HEEL PROTECTORS IN PLACED.ON AIR MATTRESS.OPTIFOAM TO BUTTOCKS .GUARDS AT BEDSIDE.ON CONTACT ISOLATION FOR C-DIFF STOOL.WILL OBSERVE PROTOCOL.WILL CONTINUE TO MONITOR.
--- NOTE | 2018-09-26 21:27 | NUR ---
PT ON DIALYSIS AT THIS TIME.WILL HOLD ALL CARDIAC MEDS FOR NOW TIL AFTER DIALYSIS.
--- NOTE | 2018-09-27 | NUR ---
DIALYSIS COMPLETED.2L OUTPUT.LATEST BP 115/74 MMHG,HR 84.DUE MEDS ADMINISTERED.REPOSITIONED AT THIS TIME.IN NO DISTRESS.WILL CONTINUE TO MONITOR.
--- NOTE | 2018-09-27 05:04 | NUR ---
PT SLEPT WELL WITH GUARDS AT BEDSIDE.NO S/S OF PAIN OR DISCOMFORT.NGT FEEDING OFF AT THIS TIME FOR ORDERED XR VIDEOSWALLOW WITH SPEECH TODAY.HOB KEPT ELEVATED.LAST FEEDING STOPPED @ 55 ML/HR.GOAL OF 65 ML/HR.F/C EMPTIED 400 ML DARK ADALID COLORED URINE.NO BM THIS SHIFT.ON CONTACT ISOALTION FOR C-DIFF STOOL.NO ASE NOTED FROM FLAGYL IV ATB AND VANCO PO ATB.ALL NEEDS ANTICIPATED.TURNED AND REPOSITIONED.HEELS OFF LOADED.ON AIRMATTRESS.BILATERAL SOFT WRIST RESTRAINTS IN PLACED AND CHECKED FOR CIRCULATION.WILL CONTINUE TO MONITOR.
[2018-09-27 06:05] VITALS: BP 107/58
[2018-09-27 06:24] LABS: PLATELET COUNT 167 x10^3mcL (130-400)
--- NOTE | 2018-09-27 06:28 | NUR ---
CHANGED DRESSING TO CENTRAL LINE ASEPTICALLY.GOOD ORAL CARE PROVIDED ,PT ABLE TO SPIT OUT THICK BROWNISH/YELLOWISH MUCOUS.NPO AT THIS TIME.NGT CLAMPED.WILL ENDORSED TO AM NURSE.
[2018-09-27 06:49] LABS: BASOPHIL % 0 % (0-2); RED CELL DISTRIBUTION WIDTH 24.6 % (11.5-14.5)
[2018-09-27 07:02] LABS: CALCIUM 8.5 mg/dL (8.5-10.1); CARBON DIOXIDE 27.2 mmol/L (21-32); MAGNESIUM 1.8 mg/dL (1.8-2.4); PHOSPHOROUS 4.7 mg/dL (2.5-4.9); TOTAL PROTEIN, SERUM 7.3 g/dL (6.4-8.2)
[2018-09-27 07:13] LABS: ALBUMIN 2.2 g/dL (3.4-5.0); BILIRUBIN TOTAL 38.26 mg/dL (0.20-1.00)
--- NOTE | 2018-09-27 07:29 | NUR ---
RECEIVED PATIENT FROM NIGHT NURSE. PATIENT AWAKE, DROWSY, EASILY AROUSABBLE. SLOW TO RESPOND WITH SOME GARBLED SPEECH. OXIMIZER IN PLACE TO NARES, 41% FiO2. LUNGS SOUNDS SLIGHTLY DEMINISHED IN BASES, NO COUGH NOTED. BREATHING UNLABORED. NG TUBE TO RIGHT NARE WITH TUBE FEEDING AT BEDSIDE, STOPPED AT THIS TIME FOR PROCEDURE. CENTRAL LINE TO RIJ X3 FLUSHING WELL, QUINTONCATH TO LIJ WITH PIGTAIL. . LOMBARDI CATH NOTED COLLECTING DARK ADALID URINE. DISCOLORATION TO JAIDEN SHINS AND TOES, HEEL PROTECTORS IN PLACE. BILATERAL SOFT WRIST RESTRAINTS IN PLACE DUE O PATIENT ATTEMPTING TO PULL OUT LINES PREVIOUSLY. SWELLING TO BILATERAL RAMONE, POSTAITVE PMSC WITH RESTRAINTS IN PLACE. AIR MATTRESS IN PLACE. CORRECTIONALL OFFICER AT BEDSIDE, CALL LIGHT GIVEN TO PATIENT AND ORIENTED PATIENT TO CALL LIGHT SYSTEM. WILL CONTINUE TO MONITOR
--- NOTE | 2018-09-27 08:23 | NUR ---
DR. CASANOVA SAW PATIENT AND IS ENCOURAGING IS USE, WANTS PATIENT TO BE ASSESSED FOR SWALLOW EVAL (XR VIDEO EVAL PENDING) TO PROGRESS FOR REMOVAL OF NG TUBE. WANTED PATIENT TO BE TREATED BY PT AND GET PATIENT UP TO CHAIR.
[2018-09-27 08:37] LABS: rbc morphology (normal/abnorm) ABNORMAL (NORMAL)
[2018-09-27 09:38] VITALS: BP 108/74
--- NOTE | 2018-09-27 10:51 | NUR ---
PATIENT SEEN THIS MORNING BY PHYSICAL THERAPIST, ABLE TO FOLLOW COMMANDS AND SIT AT SIDE OF BED FOR A TIME. STOOD WITH WALKER. ASSITED PATIENT WITH MEDICATIONS PER APR. RELEASED PATIENT FROM RESTRAINTS FOR RANGE OF MOTION. PATIENT SLOW TO RESPOND. SWALLOW EVAL SCHEDULED FOR TODAY
--- NOTE | 2018-09-27 11:11 | NUR ---
PATIENT OFF FLOOR FOR SWALLOW EVALUATION WITH CO'S.
--- NOTE | 2018-09-27 11:48 | NUR ---
PT WAS SEEN FOR DYSPHAIA SWALLOW STUDY. PT WAS ABLE TO SAFELY SWALLOW ALL THE LIQUID CONSISTENCY WITHOY S/S OF ASPIRATION. PT HAD RESIDUAL IN VALLECULE NEEDED LIQUID TO CLEAR. HOWEVER, THERE WAS NO ASPIRATION. RECOMMENDATION PUREE DIET WITH THIN LIQUID SMALL BITES AND SIPS LIQUID AFTER EVERY 2-3 BITES.
--- NOTE | 2018-09-27 12:09 | NUR ---
CALLED AND SPOKE TO AND MADE HIM AWARE OF VIDEOFLURO SWALLOW STUDY RESULT AND ALSO READ TO HIM RECOMMENDATION OF SPEECH THERAPIST DIET. NEW ORDER RECEIVED FROM , DON TO DISCONTINUE NGTUBE AND START THE DIET RECOMMENDED BY SPEECH THERAPIT. JAKE WALKER ASSIGNED TO THIS PT MADE AWARE OF ABOVE.
--- NOTE | 2018-09-27 13:40 | NUR ---
PER SWALLOW EVAL PATIENT IS OKAY TO EAT AND DRINK. NEW DIET ORDERS PUT IN. NG TUBE REMOVED PER ORDER. ASSISTED PATIENT TO EAT. HEAD OF BED 90 DEGREES, NOTICE ASPIRATION PRECAUTIONS PLACED AT HEAD OF BED. ADMINISTERED MEDICATION PER APR. SOFT RESTRAINTS REMOVED. PATIENT IS MORE ALERT AND ABLE TO FOLLOW DIRECTIONS. INFORMED PATIENT OF IMPORTANCE OF FRAGILE LINES IN NEXT AND WHY HE WAS PLACED IN SOFT RESTRAINTS IN THE FIREST PLACE. PATIENT VERBALIZED UNDERSTANDING AND AGREED TO BE CAREFUL WITH LYNDSAY LINES
[2018-09-27 13:53] VITALS: BP 115/73
--- NOTE | 2018-09-27 14:27 | NUR ---
PATIENT NOW ON 2 LPM VIA NC. TOLLERATING WELL, NO SHORTNESS OF BREATH. O2 SAT 96%
--- NOTE | 2018-09-27 14:28 | NUR ---
1. Recommend continuing Renal (puree) diet.
--- NOTE | 2018-09-27 14:28 | NUR ---
Follow-up Nutrition Assessment: 226T/B FREDDIE FINN FU HR Dx: Septic shock, liver cirrhosis PMHx: ESLD Cirrhosis, HEP C, multiple substance abuses, ([facility] resident) Labs: (09/27): BUN 66H, CREAT 4.0H, AST 218H, ALT 105H, WBC 14.7H Meds: D50%, Flagyl, humulin, Lasix, phenegran, reglan, procrit Diet: TF Vital AF 1.2 (nasogastric), @ 25 ml/hr, goal 65 ml/hr, FWF 50 ml Q4h PO Intake: NPO Weights in kg: (09/20) 116, (09/22) 106, (09/24) 103, (09/27) - fluctuations may be d/t edema Skin: optifoam to sacral-coccygeal area for deep tissue injury. Skin tear, BLE with dark discoloration/blister. Mid upper chest skin tear Niko: 11 I/Os: (09/27) 1235/1200 (35) Edema: +4 bue pitting edema, BLE +4 pitting edema, scrotal edema GI: Last BM: 09/24 RDN Visit (09/27): Patient was not in the room the first time as he had gone for an x-ray, second time, patient was getting a respiratory treatment. Per RN Dano, patient was extubated (NG tube removed) and had a video swallow eval wherein he was cleared for puree diet. Patient tolerated puree diet for lunch. Estimated Nutritional Needs based on adjusted body weight 80.3 kg Energy: 5865-5464 kcal/day (30-32 kcal/kg- HD needs, ESLD, skin integrity) Protein: 96-112 g/d (1.2-1.4 g/kg)- HD, wounds Fluid: per MD as patient on HD Nutrition Diagnosis 1. Inadequate protein energy intake related to medical condition liver cirrhosis as evidenced by low PO, puree diet Intervention 1. Recommend continuing Renal (puree) diet. Monitor/Evaluate Goal: Have pt meet at least 75% of estimated needs Monitor: TF intake/ tolerance, Labs, GI function F/U in 2-3 days as high risk 09/29-
--- NOTE | 2018-09-27 16:00 | NUR ---
PATIENT VISUALISED RESTING IN BED AT THIS TIME. NO OBVIOUS SIGNS OF DISCOMFORT. BREATHING REGULAR. WILL CONTINUE TO MONITOR
--- NOTE | 2018-09-27 16:29 | NUR ---
PHYSICAL THERAPY DAILY NOTES CO-SIGN All documentation done by the Program Assistant for 09/27/18 has been reviewed. I agree with the documentation. Reviewed/Co-Signed by: Naomi Mooney PT Documentation Done by:ANILA BROWN PTA
[2018-09-27 16:41] VITALS: BP 112/57
--- NOTE | 2018-09-27 17:58 | NUR ---
ADMINISTERED MEDICATIONS PER MAR, TURNED AND CLEANED PATIENT, TOM CARE ADMINISTERED. WIPED UPPER EXTREMITIES AND CHEST WITH CHG WIPES FOR CARE OF CENTRAL LINES, PATIENT WITH MANAGER BIOSTATISTICS FOR DINNER.
[2018-09-27 20:42] VITALS: BP 112/68
--- NOTE | 2018-09-27 22:00 | NUR ---
SOFIA FROM DIALYSIS CENTER MADE AWARE THAT PATIENT FOR HD IN AM
--- NOTE | 2018-09-28 01:03 | NUR ---
LATE ENTRY: 2000H - AWAKE, ABLE TO STATE NAME, WHERE HE IS, PRESENT YEAR. GENERALIZED WEAKNESS, SLOW TO ANSWER. LUNG SOUNDS DIMINISHED, ON 2LPM OF O2 VIA NC. BREATHING EVEN AND UNLABORED. DIALYSIS CATHETER TO LEFT JUGULAR. TRIPLE LUMEN CENTRAL LINE TO RIGHT JUGULAR. DRESSING CDI. VERASEAL GAUZES TO BILATERAL LOWER EXTREMITIES INTACT AND CLEAN. BLE DUSKY, DARK IN COLOR, WITH FLUID FILLED BLISTERS NOTED TO LEFT FOOT. TOES DARK IN COLOR. HEEL PROTECTORS TO BOTH HEELS IN PLACE. LEGS ELEVATED WITH PILLOWS. OPTIFOAM TO SACRUM INTACT AND CLEAN. CALL LIGHT WITHIN EASY REACH. [facility] OFFICERS IN ROOM.
--- NOTE | 2018-09-28 01:08 | NUR ---
LATE ENTRY: 2239 - PASSED SOFT STOOL, HYGIENE NEEDS ATTENDED TO. OPTIFOAM SOILED, REMOVED. NOTED OPEN WOUNDS TO SACRUM/BUTTOCKS. Z GUARD APPLIED TO WOUNDS. OPTIFOAM APPLIED. TURNED AND REPOSITIONED. EXPLAINED TO PT NEED FOR FREQUENT REPOSITIONING. VERBALIZED UNDERSTANDING AND AGREEMENT. KEPT ON AIR MATTRESS. HEEL PROTECTORS IN PLACE.
--- NOTE | 2018-09-28 02:28 | NUR ---
AWAKE, TURNED AND REPOSITIONED. ASSISTED TO DRINK WATER.
--- NOTE | 2018-09-28 04:08 | NUR ---
PT AWAKE, STATED HE WAS HUNGRY. FED PUDDING, ON ASPIRATION AND DYSPHAGIA PRECAUTIONS. ON HIGH FOWLERS. NO COUGHING OR CHOKING NOTED.
[2018-09-28 05:46] VITALS: BP 116/63
[2018-09-28 06:19] LABS: PLATELET COUNT 168 x10^3mcL (130-400)
--- NOTE | 2018-09-28 06:35 | NUR ---
AWAKE AND ALERT, SPEECH STILL SLOW. ABLE TO MAKE NEEDS KNOWN. BREATHING EVEN AND UNLABORED ON 2LPM OF O2 VIA NC. BLUE AND BROWN PORTS OF CENTRAL LINE TO RIGHT IJ FLUSHED WITH 5ML NS EACH. UNABLE TO FLUSH WHITE PORT. HOB KEPT ELEVATED 30 DEG. SINUS RHYTHM ON TELE, HR 78/MIN.
[2018-09-28 06:41] LABS: CALCIUM 8.7 mg/dL (8.5-10.1); CARBON DIOXIDE 23.5 mmol/L (21-32); POTASSIUM SERUM 4.1 mmol/L (3.5-5.1)
[2018-09-28 06:47] LABS: CREATININE SERUM 5.1 mg/dL (0.7-1.3)
[2018-09-28 06:54] LABS: BASOPHIL % 0 % (0-2)
--- NOTE | 2018-09-28 07:00 | NUR ---
RECEIVED BEDSIDE REPORT FROM CLINICAL RESEARCH PHYSICIAN NURSE AT THIS TIME. PATIENT RESTING COMFORTABLY IN BED. NO APPARENT DISTRESS OR DISCOMFORT NOTED. 2L NC IN PLACE. NO RESPIRATORY DISTRESS OR DISCOMFORT NOTED. NO INDICATION OF SHORTNESS OF BREATH. EDEMA NOTED TO BUE AND BLE +1. LOMBARDI CATHETER IN PLACE DRAINING TO GRAVITY DARK ADALID URINE. PATIENT IS A HD PATIENT WITH A LEFT IJ DIALYSIS CATHETER. RIGHT IJ CENTRAL LINE PATENT AND INTACT WITH DRESSING CLEAN AND INTACT. ALL QUESTIONS AND CONCERNS ADDRESSED. ALL NEEDS ATTENDED TO. SECURITY GUARDS AT BEDSIDE TO PROMOTE PATIENT SAFETY. WILL CONTINUE TO MONITOR
--- NOTE | 2018-09-28 07:22 | NUR ---
eyes closed, breathing even and unlabored on 2lpm of o2 via nc. hob elevated 30 deg. in no acute distress. endorsed to nurse lilian
[2018-09-28 09:45] VITALS: BP 97/60
--- NOTE | 2018-09-28 09:55 | NUR ---
MORNING MEDICATIONS ADMINISTERED AT THIS TIME. PATIENT TOLERATED MEDICATIONS WELL, CRUSHED. ASPIRATION PRECAUTIONS MAINTAINED. PROCRIT NOT GIVEN AT THIS TIME BECAUSE MEDICATION TO BE GIVEN AT END OF DIALYSIS. AWAITING DIALYSIS AT THIS TIME. NO ADVERSE EFFECTS NOTED. ALL NEEDS ATTENDED TO. WILL CONTINUE TO MONITOR
--- NOTE | 2018-09-28 12:00 | NUR ---
PATIENT BLOOD SUGAR 89 AT THIS TIME. NO INSULIN COVERAGE REQUIRED. ALL NEEDS ATTENDED TO. WILL CONTINUE TO MONITOR
[2018-09-28 12:15] LABS: ovalocyte/elliptocyte 1+; rbc morphology (normal/abnorm) ABNORMAL (NORMAL)
[2018-09-28 12:36] VITALS: BP 125/96
--- NOTE | 2018-09-28 15:30 | NUR ---
DIAYSIS NURSE AT BEDSIDE AT THIS TIME INITIATING HEMODIALYSIS. ALL NEEDS ATTENDED TO. WILL CONTINUE TO MONITOR
--- NOTE | 2018-09-28 15:48 | NUR ---
PHYSICAL THERAPY DAILY NOTES CO-SIGN All documentation done by the [employer] for 09/28/18 has been reviewed. I agree with the documentation. Reviewed/Co-Signed by: Naomi Mooney PT Documentation Done by:ANILA BROWN PTA
--- NOTE | 2018-09-28 16:30 | NUR ---
PATIENT BLOOD SUGAR 96 AT THIS TIME. NO INSULIN COVERAGE REQUIRED. ALL NEEDS ATTENDED TO. WILL CONTINUE TO MONITOR
[2018-09-28 17:29] VITALS: BP 111/74
--- NOTE | 2018-09-28 18:43 | NUR ---
PATIENT RESTING COMFORTABLY IN BED AT THIS TIME. NO APPARENT DISTRESS OR DISCOMFORT NOTED. CENTRAL LINES TO RIJ AND LIJ PATENT AND INTACT. DRESSING CDI. LOMBARDI CATHETER DRAINING TO GRAVITY DARK ADALID URINE. ALL QUESTIONS AND CONCERNS ADDRESSED. ALL NEEDS ATTENDED TO. SAFETY PRECAUTIONS MAINTAINED. WILL ENDORSE ALL CARE TO POULTRY PROCESSING SUPERVISOR NURSE
--- NOTE | 2018-09-28 19:30 | NUR ---
RECIEVED PT IN BED WITH NO ACUTE DISTRESS NOTED AT THIS TIME. CORRECTIONS OFFICERS AT BEDSIDE ASSESSMENT PERFORMED AT THIS TIME, PT DENIES SOB ON 2L 02 VIA NC, PT IS A/O X [address], AND SITUATION, FORGETFUL AT TIMES, PT DENIES PAIN AT THIS TIME, 2 IJS ONE TO THE RIGHT AND ONE TO THE LEFT NECK, SAFETY PRECAUTIONS IN PLACE, WILL CONTINUE TO MONITOR
[2018-09-28 20:50] VITALS: BP 112/67
--- NOTE | 2018-09-28 22:00 | NUR ---
CLEANED PATIENT AND REMOVED OPTIFOAM OF SACCRAL REGION, CLEANSED AND REAPPLIED NEW OPTIFOAM
[2018-09-29] VITALS (7 sets, daily range): BP systolic 106–122; BP diastolic 60–75
--- NOTE | 2018-09-29 00:10 | NUR ---
PT RESTING IN BED WITH NO ACUTE DISTRESS AT THIS TIME, PT DENIES SOB OR PAIN, SAFETY PRECAUTIONS IN PLACE, CORRECTIONS OFFICERS AT BEDSIDE, WILL CONTINUE TO MONITOR
--- NOTE | 2018-09-29 02:15 | NUR ---
CLEANED PT AFTER SMALL BM AND REPLACED OPTIFOAM DRESSING ON THE COCCYX. CORRECTIONS OFFICERS AT BEDSIDE, SAFETY PRECAUTIONS IN PLACE WILL CONTINUE TO MONITOR
--- NOTE | 2018-09-29 05:12 | NUR ---
PT RESTED THROUGH THE NIGHT WITH CORRECTIONS OFFICERS AT BEDSIDE, PT HAD ONE COMPLAINT OF PAIN TO BLE TREATED WITH TYLENOL PER DR ORDER, PT HAD TWO SOFT BM DURING SHIFT AND WAS CLEANED, EACH TIME OPTIFOAM DRESSING WAS REPLACED, SAFETY PRECAUTIONS WERE MAINTAINED, WILL CONTINUE TO MONITOR AND ENDORSE CARE TO ONCOMING SHIFT
[2018-09-29 06:45] LABS: BASOPHIL % 0.2 % (0-2); PLATELET COUNT 147 x10^3mcL (130-400)
[2018-09-29 06:49] LABS: RED CELL DISTRIBUTION WIDTH 24.8 % (11.5-14.5)
--- NOTE | 2018-09-29 06:53 | NUR ---
CLEANSED RIGHT AND LEFT IJ WITH CHG WIPES
[2018-09-29 07:19] LABS: CALCIUM 8.6 mg/dL (8.5-10.1); CARBON DIOXIDE 24.2 mmol/L (21-32); POTASSIUM SERUM 3.7 mmol/L (3.5-5.1)
[2018-09-29 07:23] LABS: CREATININE SERUM 5.1 mg/dL (0.7-1.3)
--- NOTE | 2018-09-29 08:00 | NUR ---
SHIFT ASSESSMENT DONE. PATIENT DROWSY, AROUSABLE. ABLE TO MADE NEEDS KNOWN. TELE#15; SR; HR = 79. DENIED CHEST PAIN. BREATHING SOUND DIMINISHED JAIDEN; O2 SAT 96% ON 2L VIA N/C. GENERAL JAUNDICE. MULTIPLE WOUNDS TO LT EAR/CHEST/BLE AND COCCYX. ABLE TO SWALLOW PUREED DIET. FINISHED 25%. LOMBARDI PATENT W/ DARK ADALID URINE OUTPUT. CENTRAL LINE TO RIJ. ALL PORT PATENT WITH NS FLUSH. MARIAM CATH TO [facility]. DRSG INTACT. DENIED PAIN. DIARRHEA. C DIFF (+); ISOLATION IN PLACE. CIW GUARDS IN ROOM. CALL LIGHT IN REACH.
[2018-09-29 09:16] LABS: burr cell (echinocyte) 1+; ovalocyte/elliptocyte 1+; rbc morphology (normal/abnorm) ABNORMAL (NORMAL); target cell (codocyte) 1+
--- NOTE | 2018-09-29 10:30 | NUR ---
WOUND CARE RE-EVALUATION NOTE: SKIN ASSESSMENT DONE WITH PRIMARY RN, PT IS AAX4 INFORM PT OF HIS CHANGE OF SKIN CONDITION /SKIN ALTERATIONS INCLUDING MULTIPLE PRESSURE ULCERS WITH TREATMENT INTIATED WHILE HE WAS AT ICU. PREVIOUS SCROTAL AND PERINEUM IAD IMPROVING. PT VERBALIZES UNDERSTANDING AND AGREEABLE WITH TREATMENT PLAN. INTEGUMENTARY: -RIGHT EAR MULTIPLE DTI WITH DRY THEN SCABS -MID CHEST/NECK AREA SKIN TEAR DRESSING DCI INTACT -BILATERAL LOWER EXTREMITIES ANTERIOR AND POSTERIOR WITH MULTIPLE DRY SCABS, DARK PIGMENTATION WITH MULTIPLE VASETEL DRESSING IN PLACE DRY AND CLEAN -BILATERAL DORSAL FEET/TOES ISCHEMIA ULCERATION WITH LIGHT PURPLE DISCOLORATION WITH NITRO OINTMENT, LEFT 3RD AND 4TH TOES SKIN DENUDED -LEFT LATERAL HEEL DEEP TISSUE INJURY 5X6 CM BLOOD FLUIDS FILLED BLISTER, SKIN INTACT MUSHY -SACRALCOCCYX PRESSURE INJURY PREVIOUS DTI TODAY IS A STAGE 2 WITH PARTIAL THICKNESS LOSS OF SKIN, WOUND BED 100% GRANULATING TISSUE, BUTTERFLY SHAPE, LIGHT PURPLE COLOR TO WOUND EDGE WITH TOM-WOUND SKIN INTACT AND DENUDED, SURROUNDING REDNESS INDICATED FURTHER DAMAGE. -INCONTINENT ASSOCIATE DERMATITIS TO SCROTAL AND PERINEUM, SKIN REDNESS RECOMMENDATIONS: -CONTINUE TO APPLY SKIN PREP TO LEFT HEEL AND RIGHT EAR DTI BID AND LEAVE IT OPEN TO AIR -APPLY VERSATEL DRESSING TO BLE BLISTERS PRN IF SOILING, APPLY HYDRAGUARD TO DRY NESS AREA QD AND LEAVE IT OPEN TO AIR. -CLEANSE SACRALCOCCYX WITH NS. PAT. DRY APPLY Z GUARD AND OPTIFOAM QD AND PRN IF SOILING -CLEANSE SCROTAL AND PERINEUM AREA WITH SOAP AND WATER, PAT DRY, APPLY Z GUARD QD AND PRN IF SOILING. -CLEANSE CHEST SKIN TEARS WITH WOUND CARE SOLUTION, PAT DRY, COVER WITH VASETEL DRESSING Q3D AND PRN IF SOILING -APPLY HEEL PROTECTOR TO BILATERAL HEELS WHEN IN BED -OFFLOAD BILATERAL HEELS BY PLACING PILLOWS UNDER CALVES UNLESS OTHERWISE CONTRAINDICATED -PRESSURE REDISTRIBUTION SURFACE THERAPY -TURN AND REPOSITION Q2H, OFFLOAD RIGHT EAR AND SACRALCOCCYX -CONTINUE TO FOLLOW RD RECOMMENDATIONS RECOMMENDATIONS DISCUSSED WITH PRIMARY RN WILL FOLLOW UP PATIENT Q7-10 DAYS AND PRN. PLEASE CONTACT WOUND CARE NURSE FOR ANY QUESTIONS AND CHANGES IN SKIN CONDITION.
--- NOTE | 2018-09-29 11:00 | NUR ---
DR. FERRELL SAW PATIENT. ORDER OF CONSENT OF TUNNELED HEMODIALYSIS CATH INSERTION SIGNED BY PATIENT. SCHEDUALED TOMORROW 3PM.
--- NOTE | 2018-09-29 16:22 | NUR ---
PHYSICAL THERAPY DAILY NOTES CO-SIGN All documentation done by the Production [employer] for 09/29/18 has been reviewed. I agree with the documentation. Reviewed/Co-Signed by: Naomi Mooney PT Documentation Done by:ANILA BROWN PTA
--- NOTE | 2018-09-29 18:45 | NUR ---
DR. ACEVES SAW PATIENT. ORDER OF H/D TOMORROW MORNING. PATIENT HAD 800CC OF ADALID COLORED URINE COLLECTED FROM LOMBARDI. HAD DIARRHEA X3. ON PUREED DIET, BUT PORR APPETITE. MORE ALERT/AWAKE NOW. ENDORSED CARE TO [facility] NURSE.
--- NOTE | 2018-09-29 19:30 | NUR ---
RECIEVED PT FROM DAY NURSE. PT RESTING IN BED COMFORTABLY. DENIES PAIN AT THIS TIME. A/OX4, CALM AND COOPERATIVE AT THIS TIME. TELE 15, NSR. DENIES CP, N/V, DIZZINESS, OR PALPATATIONS. PALPABLE PULSES, BUE BLE EDEMA NOTED. BREATHING E/U, ON 2 L NC. DENIES SOB. AND SOFT AND ROUND, NO PAIN TO PALPATION. LOMBARDI INTACT AND DRAINING, DARK ADALID COLORED URINE. GENERALIZED WEAKNESS, UP WITH PT. AIR MATTRESS AND JAIDEN HEEL PROTECTORS IN PLACE. RIJ, INTACT AND INFUSING. BED AT LOWEST POSITION. CALL LIGHT WITHIN REACH. WILL CONTINUE TO MONITOR.
--- NOTE | 2018-09-29 22:00 | NUR ---
PT BLOOD GLUC 73. PT ASYMP. GAVE PT APPLE JUICE WITH ON PACKET OF SUGAR. WILL MONITOR.
--- NOTE | 2018-09-29 23:00 | NUR ---
SPOKE TO [facility] NURSE. MADE AWARE OF PT 8 AM PROCEDURE.
--- NOTE | 2018-09-30 | NUR ---
PT RESTING IN BED COMFORTABLY. NO S/S OF PAIN OR DISCOMFORT AT THIS TIME. BREATHING E/U ON 2L NC. NO SIGNS OF ACUTE DISTRESS AT THIS TIME. BED AT LOWEST POSITION. CALL LIGHT WITHIN REACH. WILL CONTINUE TO MONITOR.
[2018-09-30 05:41] VITALS: BP 125/70
[2018-09-30 06:41] LABS: BASOPHIL % 0.4 % (0-2)
--- NOTE | 2018-09-30 06:53 | NUR ---
PT RESTING IN BED COMFORTABLY. DENIES PAIN AT THIS TIME. BREATHING E/U ON 2L NC. SACRYL OPTIFOAM CHANGED AT THIS TIME. PT TOLERATED WELL. WIPED WITH CHG WIPES IN PREPERATION FOR SURGERY. WILL ENDORSE TO DAY NURSE.
--- NOTE | 2018-09-30 07:00 | NUR ---
DR SUE NOTIFIED ABOUT PTS BLOOD SUGAR OF 68. DR SUE STATED NO NEED FOR AN INTERVENTION. WILL ENDORSE TO DAY NURSE.
[2018-09-30 07:13] LABS: PLATELET COUNT 125 x10^3mcL (130-400); RED CELL DISTRIBUTION WIDTH 25.2 % (11.5-14.5)
[2018-09-30 07:16] LABS: CALCIUM 8.8 mg/dL (8.5-10.1); CARBON DIOXIDE 22.3 mmol/L (21-32); PHOSPHOROUS 6.8 mg/dL (2.5-4.9); POTASSIUM SERUM 3.3 mmol/L (3.5-5.1)
--- NOTE | 2018-09-30 08:10 | NUR ---
HANDOFF REPORT RECEIVED WHILE PATIENT LEAVING FOR PERMACATH PLACEMENT. AWAKE. GUSRDS IN ATTENDANCE.
[2018-09-30 09:11] LABS: CREATININE SERUM 5.4 mg/dL (0.7-1.3)
--- NOTE | 2018-09-30 09:20 | NUR ---
PT IN SURGERY UNABLE TO GIVEN HHNTX AT THIS TIME.
--- NOTE | 2018-09-30 09:25 | NUR ---
P.T. NOTES UNABLE TO SEE PATIENT FOR P.T. AT THIS TIME, PATIENT DOWNSTAIRS FOR PROCEDURE.
--- NOTE | 2018-09-30 10:00 | NUR ---
BACK TO FLOOR AFTER OR (PERMACATH NOT DONE DUE TO COAGULATION TIMES). WEAK. ALERT. ORIENTEDX4.WITH 2LPM O2. DIET RESUMED. DENIES ANY DISCOMFORT ON ARRIVAL.
[2018-09-30 10:05] VITALS: BP 117/71
[2018-09-30 13:20] VITALS: BP 118/71
--- NOTE | 2018-09-30 14:47 | NUR ---
Follow-up Nutrition Assessment: 226T/B FREDDIE FINN FU HR Dx: Septic shock, liver cirrhosis PMHx: ESLD Cirrhosis, HEP C, multiple substance abuses, ([facility] resident) Labs: (09/29): BUN 72H, CREAT 5.1H, AST 218H, ALT 105H Meds: D50%, Flagyl, humulin, Lasix, phenegran, reglan, Procrit, pepcid Diet: Puree (renal) w/ thin liquids PO Intake: (09/30) breakfast 25%, (09/29) lunch, breakfast 10%, (09/27) lunch 30% Weights in kg: (09/22) 106, (09/24) 103, (09/27)103.1, (09/30)105 - fluctuations may be d/t edema Skin: optifoam to sacral-coccygeal area for deep tissue injury. Skin tear, BLE with dark discoloration/blister. Mid upper chest skin tear Niko: 12 I/Os: (09/29) 1485/1150 (335) Edema: BUE, BLE edema GI: C.diff positive Last BM: 09/30 RDN Visit (09/30): Patient was alert and oriented, is a [facility] resident. Patient said he does not have any N/V but has poor appetite. Patient is scheduled for HD today. Estimated Nutritional Needs based on adjusted body weight 80.3 kg Energy: 1624-0368 kcal/day (30-32 kcal/kg- HD needs, ESLD, skin integrity) Protein: 96-112 g/d (1.2-1.4 g/kg) - HD, wounds Fluid: per MD as patient on HD Nutrition Diagnosis 1. Inadequate protein energy intake related to medical condition liver cirrhosis as evidenced by documented PO <75%. (ongoing) Intervention 1. Recommend continuing Renal (puree) diet. 2. Recommend ONS Nepro BID. This will provide additional 850 kcal and 20g protein Discussed recommendation with Dr. Bentley and RN Lisa. Monitor/Evaluate Goal: Have pt meet at least 75% of estimated needs Monitor: TF intake/ tolerance, Labs, GI function F/U in 2-3 days as high risk 10/02-
--- NOTE | 2018-09-30 16:04 | NUR ---
PHYSICAL THERAPY DAILY NOTES CO-SIGN All documentation done by the [employer] for 09/30/18 has been reviewed. I agree with the documentation. Reviewed/Co-Signed by: Naomi Mooney PT Documentation Done by:ANILA BROWN PTA
[2018-09-30 16:37] VITALS: BP 99/62
--- NOTE | 2018-09-30 17:29 | NUR ---
HEMODIALYSIS IN PROGRESS.
--- NOTE | 2018-09-30 19:35 | NUR ---
HANDOFF REPORT GIVEN TO DENISE MURRIETA.
--- NOTE | 2018-09-30 20:35 | NUR ---
PATIENT RECEIVED RESTING IN BED, RESPIRATION EVEN AND UNLABORED, ON ROOM AIR. ONGOING 0.9% NS AT 5 CC/HR INFUSING WELL AT THE RIGHT IJ. S/P HEMODIALYSIS, OUTPUT 2.1 LITERS. EDEMA TO BUE/BLE. LOMBARDI CATHETER TO GRAVITY DRAINING DARK ADALID COLORED URINE. GENERALIZED WEAKNESS. ULCER TO SACRAL AREA COVERED WITH OPTIFOAM, SKIN TEAR TO CHEST ANNA, 2ND AND 4TH METATARSAL GANGRENE DIGGING MACHINE OPERATOR. DENIES PAIN AT THIS TIME. ON CONTACT ISOLATION FOR C DIFF. CIM DEPUTY AT THE BEDSIDE. WILL CONTINUE TO MONITOR.
[2018-09-30 21:22] VITALS: BP 114/69
[2018-10-01 06:06] VITALS: BP 113/71
--- NOTE | 2018-10-01 06:56 | NUR ---
PATIENT RESTING IN BED. RESPIRATION EVEN AND UNLABORED, ON ROOM AIR. RT IJ TLC PATENT AND INTACT. LOMBARDI CATHETER IN PLACED TO GRAVITY WITH DARK ADALID COLORED URINE. KEPT CLEAN AND DRY. TURNED FROM SIDE TO SIDE. SAFETY OBSERVED. PLACED BED IN THE LOWEST POSITION. PLACED CALL LIGHT WITHIN REACH AT ALL TIMES.
[2018-10-01 06:59] LABS: BASOPHIL % 0.5 % (0-2)
[2018-10-01 07:04] LABS: PLATELET COUNT 88 x10^3mcL (130-400); RED CELL DISTRIBUTION WIDTH 26.3 % (11.5-14.5)
--- NOTE | 2018-10-01 07:15 | NUR ---
RECEIVED PATIENT AWAKE/ALERT IN BED, DENIES PAIN. NO DISTRESS NOTED, REPOSITIONED UP IN BED OFFERED WATER PER REQUEST. TELE #15 W/ SR HR 71 NOTED. RIJ TLC INTACT AND INFUSING WELL; MONSTER BECERRA CATH W/ DRESSING CDI. CALL LIGHT WITHIN REACH. 2 GUARDS AT BEDSIDE.
[2018-10-01 07:26] LABS: CALCIUM 8.7 mg/dL (8.5-10.1); CARBON DIOXIDE 22.7 mmol/L (21-32); PHOSPHOROUS 6.2 mg/dL (2.5-4.9); POTASSIUM SERUM 3.2 mmol/L (3.5-5.1)
[2018-10-01 07:30] LABS: ALBUMIN 2.3 g/dL (3.4-5.0)
[2018-10-01 07:31] LABS: CREATININE SERUM 4.9 mg/dL (0.7-1.3)
[2018-10-01 07:33] LABS: BILIRUBIN TOTAL 41.4 mg/dL (0.20-1.00)
[2018-10-01 08:33] VITALS: BP 121/69
[2018-10-01 08:50] LABS: TOTAL PROTEIN, SERUM 6.7 g/dL (6.4-8.2)
--- NOTE | 2018-10-01 09:48 | NUR ---
PATIENT RESTING IN BED NO COMPLAINS. ROCEPHIN IVPB AND PEPCID ADMINISTER TO RIJ PATENT AND INTACT. ALL DUE MEDS GIVEN. CALL LIGHT WITHIN REACH. GUARDS AT BEDSIDE.
--- NOTE | 2018-10-01 11:31 | NUR ---
PATIENT ASLEEP AROUSABLE, DR. FRANKLIN WITH RESIDENT SEEN PATIENT AND DISCUSS POC, PER DR. FRANKLIN WILL ADV DIET TO FULL LIQUID IF PATIENT TOLERATED PLAN D/C HOME PER PATIENT.
--- NOTE | 2018-10-01 11:51 | NUR ---
PER PIANO ACCOMPANIST MONSTER DIAYSIS CATHETER IS NOT WORKING, NOT FLUSHING; VIN SPOKE WITH DR. SUH AND CANCELLED HD TODAY; NO ACTIVASE. THE ON-CALL DIRECTOR OF FRONT OFFICE WILL SEE PATIENT TOMORROW. DR. SUE WAS CALL AND INFORM. NEED REPEAT PT/INR FOR POSS TUNNEL CATHETER PLACEMENT. CN AWARE AND SPOKE WITH DR. SUE.
[2018-10-01 11:55] VITALS: BP 120/70
--- NOTE | 2018-10-01 12:32 | NUR ---
DR. CASANOVA IN TO SEE PATIENT REQUEST RN TO REMOVED RIJ CENTRAL LINE AND PLACE PERIPHERAL IV; WILL WAIT FOR ORDER TO D/C. ALL PO MEDS GIVEN. PATIENT TOLERATED WELL. BS 96 NO COVERAGE NEEDED. DRAW BLOOD FROM RIJ FOR PT/INR IN BLUE PORT AND FLUSH WELL, WHITE PORT UNABLE TO FLUSH AND BROWN PORTFLUSH WELL BUT NO BLOOD RETURN. CALL LIGHT WITHIN REACH. GUARDS AT BEDSIDE.
--- NOTE | 2018-10-01 13:01 | NUR ---
P.T. NOTES AFTER MULTIPLE ATTEMPTS PATIENT CONTINUES TO REFUSE P.T., STATES NOT FEELING WELL AND TIRED, MADE RN AWARE.
--- NOTE | 2018-10-01 13:24 | NUR ---
DR. SUE SEEN PATIENT AT THIS TIME, INFORM DIALYSIS CATHETER IS NOT WORKING. NO INTERVENTION FOR TOT. BILIRUBIN 41.[address] SUE AND INR 2.5; INFORM DR. SUE PER DR. CASANOVA NEED TO D/C CENTRAL LINE ON THE RT NECK.
--- NOTE | 2018-10-01 15:24 | NUR ---
PATIENT IN BED AWAKEN, NO COMPLAIN, CHANGE BARRIES TO TELE BOX. ADMINISTERED LASIX IVP TO RIJ PATENT AND INTACT, REMOVED SACRAL DRESSING, CLEANSE SITE W/ NS PATTED DRY APPLIED ZGAURD TO SITE, COVER WITH OPTIFOAM; WOUND BED RED SCANT BLEEDING NOTED. CLEANSE BLE AND REAPPLY VERSATAL DRESSING. CLEANSE INTO BETWEEN TOES AND APPLIED OINTMENT ORDERED. REPOSITION TO SIDE AMD ELEVATED W/ PILLOWS
--- NOTE | 2018-10-01 15:41 | NUR ---
LATE ENTRY AT 1500: LT FOOT BETWEEN 2ND AND 3RD GANGRENE AND RT FOOT SKIN SLOUGHING OFF IN BETWEEN TOES NOTED, NITROL OINTMENT APPLIED. ELEVATED BLE ON PILLOWS. CN AND RESOURCE ATTEMPTED IV INSERTION X5 UNABLE. LEAVE RIJ IN PER DR. SUE
--- NOTE | 2018-10-01 16:16 | NUR ---
DR. ACEVES CALL GIVE ORDER FOR VITAMIN K 10MG IM X 1 NOW AND ONE DOSE TOMORROW, PTT/PT/INR IN AM. ORDERS CARRY OUT.
[2018-10-01 16:43] VITALS: BP 125/77
--- NOTE | 2018-10-01 17:02 | NUR ---
CALL DR. ACEVES AT [phone] TO CLARIFIED VITAMIN K ROUTE AND EXPLAINED PER PHARMACIST LYNETTE VITAMIN K SQ AND IM IS HIGH RISK FOR HEMATOMA AND SUGGEST IV DRIP; PER DR. ACEVES IS OKAY AND INSIST TO ADMINISTERED SQ.
--- NOTE | 2018-10-01 17:51 | NUR ---
PATIENT LAYING IN LEFT SIDE EYES CLOSED, INFORM PATIENT WILL REMOVED RIJ PER DOCTOR ORDER, GAVE VITAMIN K 10MG SQ TO RT ABDOMEN AND REGLAN 10MG IVP TO RFA IV #22G NEW IV RESTARTED BY TIM BOLTON. MYLICON PO GIVEN. PATIENT TOLERATED, DINNER TRAY LEFT AT BEDSIDE FOR PATIENT. RIJ TLC REMOVED WITH TIP INTACT AND HELD PRESSURE FOR 5MIN APPLIED GAUZES AND COVER WITH INLAND DRESSING, CONT TO MONITOR. 2 GUARDS REMAIN AT BEDSIDE.
--- NOTE | 2018-10-01 18:34 | NUR ---
PATIENT RESTING IN BED RT NECK DRESSING CDI NO BLEEDING NOTED. ENCOURAGE PATIENT TO EAT HIS DINNER, BS 85 PATIENT SAID LATER DID NOT WANT DINNER YET. CONT TO MONITOR. CALL LIGHT WITHIN REACH.
--- NOTE | 2018-10-01 19:20 | NUR ---
RECEIVED PT LAYING IN BED, NO ACUTE DISTRESS OBSERVED, DENIES PAIN OR DISCOMFORT AT THIS TIME. AA/OX3, ABLE TO MAKE NEEDS KNOWN, SPEECH SLOW AND APPROPRIATE, AROUSABLE TO VERBAL STIMULI. NSR TO TELE #15, HR 83, DENIES CP. PEDAL PULSES WEAK, NON PITTING EDEMA TO BLE. BREATHING ON RA, EVEN AND UNLABORED, NO SOB OR DYSPNEA OBSERVED, LUNGS CTA, O2 SAT 97% ABD ROUND AND SOFT WITH ACTIVE BOWEL SOUNDS, DENIES N/V/D, LAST BM YESTERDAY. LOMBARDI CATH IN PLACE DRAINING DARK ADALID URINE TO GRAVITY HD PT WITH [facility] MARIAM CATH, DRESSING CDI. HD SCHEDULED FOR TODAY BUT WAS UNABLE DUE TO [employer] NOT WORKING. GENERALIZED WEAKNESS, PER PHYSICAL THERAPY NOTE FROM [facility] TODAY, AFTER MULTIPLE ATTEMPTS, PT REFUSED TO WORK WITH P.T. AIR MATTRESS IN PLACE, REPOSITION Q2H, OFF LOADING BOOTS TO BLE IN PLACE. OPTIFOAM IN PLACE TO SACRAL, CDI. 3RD AND 4TH TOE GANGRENE TO BOTH FEET, NITRO PASTE ORDERED, COLD PRESS OPERATOR. BLISTERS TO BOTH LEGS, VERSATELS AND DRESSING IN PLACE CDI. IV TO RFA IN PLACE, DRY, PATENT, INTACT, S/L AT THIS TIME, NO PAIN, REDNESS OR SWELLING NOTED WHEN FLUSHED WITH NS. COMFORT AND SAFETY MEASURES IN PLACE. BED IN LOWEST POSITION WITH SIDE RAILS UPX2 AND BED ALARM ACTIVATED. ALL NEEDS ASSESSED AND ATTENDED TO. CALL LIGHT WITHIN REACH. WILL CONTINUE TO MONITOR
--- NOTE | 2018-10-01 20:42 | NUR ---
DR. BEAUCHAMP IN TO SEE PT AT THIS TIME. ORDERS TO D/C ALL ANTIBIOTICS.
[2018-10-01 20:50] VITALS: BP 112/66
[2018-10-02] VITALS (11 sets, daily range): BP systolic 115–138; BP diastolic 63–75
--- NOTE | 2018-10-02 06:35 | NUR ---
NO SIGNIFICANT CHANGES TO REPORT, PT COMPLIED WITH NURSING CARE THOUGHOUT THE SHIFT WITH NO ACUTE EVENTS OVERNIGHT. NO ACUTE DISTRESS OBSERVED AT THIS TIME, PT LAYING IN BED, BREATHING EVEN AND UNLABORED, AROUSABLE TO VERBAL STIMULI. COMFORT AND SAFETY MEASURES MAINTAINED. ALL NEEDS ASSESSED AND ATTENDED TO. CALL LIGHT WITHIN REACH. WILL CONTINUE TO MONITOR AND ENDORSE CARE TO DAY SHIFT NURSE
--- NOTE | 2018-10-02 06:35 | NUR ---
PER CROSSING WATCHMAN, UNABLE TO DRAW BLOOD FROM PT AT THIS TIME. WILL BE BACK AGAIN
[2018-10-02 07:17] LABS: BASOPHIL % 0.5 % (0-2)
[2018-10-02 07:20] LABS: PLATELET COUNT 75 x10^3mcL (130-400); RED CELL DISTRIBUTION WIDTH 26.4 % (11.5-14.5)
[2018-10-02 07:32] LABS: CALCIUM 8.6 mg/dL (8.5-10.1); CARBON DIOXIDE 21.7 mmol/L (21-32); CREATININE SERUM 5.4 mg/dL (0.7-1.3)
--- NOTE | 2018-10-02 07:57 | NUR ---
RECEIVED HAND OFF REPORT FROM NIGHT NURSE. PATIENT WAS RIGHT SIDE LAYING IN BED. ASLEEP BUT AROUSE BY VOICE, A/OX4 DENIES COMPLAINTS. ASSISTED PATIENT TO SIT UP IN BED FOR BREAKFAST. PATIENT ON ROOM AIR, SPEECH IS SLOW BUT CLEAR, TELE [address] SH[address]ING NSR[address] LOMBARDI IN PLACE DRAINING DARK URINE AT THIS TIME. PATIENT WEAK BUT HAS BEEN DENYING PHYSICAL THERAPY. SCLERA AND SKIN JAUNDICED. DRESSING TO VARIOUS WOUNDS AT THIS TIME. NO PAIN AT THIS TIME. IV INTACT TO RIGHT FORARM INFUSING WELL CALL LIGHT WITHIN REACH, CORRECTIONAL OFFICERS IN ROOM. WILL CONTINUE TO MONITOR
[2018-10-02 08:37] LABS: ovalocyte/elliptocyte 1+; rbc morphology (normal/abnorm) ABNORMAL (NORMAL)
--- NOTE | 2018-10-02 08:43 | NUR ---
ADMINSITERED MEDICATIONS PER MAR. PATIENT SIGNED INFORMED CONSENT FOR BLOOD TRANSFUSION. DR FERRELL PUT IN ORDER TO TRANSFUSE FFP WHEN READY IN BLOOD BANK. PATIENT HAD NO QUESTIONS ABOUT TRANSFUSION. RT WITH PATIENT FOR BREATHING TREATMENT. CALL LIGHT WITHIN REACH WILL CONTINUE TO MONITOR
--- NOTE | 2018-10-02 10:10 | NUR ---
INFORMED DR CASTELLANO POTASSIUM LEVEL OF 3.0 AND PTT: 53.2, PT: 25.2 AND INR: 2.6 NO NEW ORDERS AT THSI TIME, CONTINUING FFP TRANSFUSIONS. AND CONTINUE TO MONITOR
--- NOTE | 2018-10-02 11:47 | NUR ---
BEGIN OF TRANSFUSION OF FFP. PATIENT STABLE, VS BP: 123/68, HR: 81BPM, RESP: 16, TEMP: 97.8. WILL REMAIN IN ROOM WITH PATIENT FOR FIRST 15 MIN OF BLOOD TRANSFUSION
--- NOTE | 2018-10-02 12:02 | NUR ---
AFTER 15 MINUTES OF TRANSFUSION PATIENT IS STABLE AND RESTING COMFORTABLY. VSS, BP:123/72, HR:81, SPO2: 97%, TEMP 97.2 INCREASED RATE OF TRANSFUION TO COMPLETE IN 2 HOURS. CALL LIGHT IS WITHIN REACH OF PATIENT, X2 CORRECTIONAL OFFICERS IN PATIENT ROOM. WILL CONTINUE TO MONITOR
--- NOTE | 2018-10-02 12:53 | NUR ---
PATIENT ROUSABLE AT THIS TIME, REPORTING NO PAIN, TRANSFUSION CONTINUING WELL. WITH NO SIGNS OF TRANSFUSION REACTION. ASSISTED PATIENT TO TAKE PO MEDICATION. CALL LIGHT WITHIN REACH OF PATIENT, WILL CONTINUE TO MONITOR
--- NOTE | 2018-10-02 13:31 | NUR ---
PATIENT VISUALIZED SLEEPING SUPINE AT THIS TIME. BREATHING STEADY AND UNLABORED, NO APPARENT DISTRESS NOTED. FFP HAD 30 MINUTES REMAINING IN TRANSFUSION. WILL CONTINUE TO MONITOR
--- NOTE | 2018-10-02 14:19 | NUR ---
TRANSFUSION COMPLETE AT 1405. TOTAL 310ML TRANSFUSED. PATIENT STABLE, DROWSY BUT ROUSABLE TO A/O X4. REFUSED TO EAT LUNCH. VS STABLE BP: 127/70 HR: 80, RESP: 16, SPO2: 97%. DENIES PAIN, NO SIGNS OF ADVERSE REACTIONS TO TRANSFUSION. MEDICATED PER APR. HELD PROPRANOLOL DUE TO HR AT 79-80 AT TIME OF ADMINISTRATION. PATIENT REQUESTING TO CONTINUE TO REST. IV FLUSING WELL, SECOND FFP TO BE TRANSFUSED PER ORDER. CALL LIGHT WITHIN REACH, X2 CORRECTIONAL OFFICERS IN ROOM. WILL CONTINUE TO MONITOR
--- NOTE | 2018-10-02 15:33 | NUR ---
SECOND UNIT OF FFP STARTED TRANSFUSION PER ORDER. VERFIED BY MILTON WALKER. VSS STABLE BEFORE BEGINING OF TRANSFUSION. VS: BP: 123/70 HR: 74, TEMP: 97.5, RESP: 16, SPO2: 98%. ELLA REMAIN IN PATIENT ROOM FOR FIRST 15 MINUTES OF TRANSFUSION PER PROTOCOL.
--- NOTE | 2018-10-02 15:49 | NUR ---
AFTER 15 MINUTES VITAL SIGNS REMAIN STABLE, PATIENT RESTING AT THIS TIME AND ROUSABLE TO VERBAL STIMULI, REQUESTING TO REAMIN RESTING. HR: 75 BP: 123/72 RESP: 16 TEMP: 97.7 SPO2: 96% PROVIDED WOUND CARE TO FEET LEGS AND EARS, WAITING TO PROVIDE CARE TO SACRAL WOUND AFTER TRANSFUSION FINISHES TO BE ABLE TO TURN PATIENT. CALL LIGHT REMAINS WITHIN REACH OF PATIENT, X2 CORRECTIONAL OFFICES IN ROOM WITH PATIENT
--- NOTE | 2018-10-02 17:19 | NUR ---
BLOOD SUGAR RESULT WAS 74 NO COVERAGE NEEDED. PATIENT REQUESTED ORANGE JUICE. TRANSFUSION WILL COMPLETE IN 30 MINUTES. WILL RETURN TO REASSESS PATIENT
--- NOTE | 2018-10-02 17:40 | NUR ---
TRANSFUSION STILL IN PROGRESS. BYRON PICKENS WITH PATIENT ASSISTING TO EAT DINNER. FOLLOWING ASPIRATION PROTOCOLS
--- NOTE | 2018-10-02 18:10 | NUR ---
PLATELETS STILL TRANSFUSING AT THIS TIME. PATIENT ASLEEP. AT DINNER WITH CIRCLE BEVELER. BREATHING REGULAR AND UNLABORED. NO APPARENT PAIN. CALL LIGHT WITHIN REACH, WILL CONTINUE TO MONITOR
--- NOTE | 2018-10-02 18:48 | NUR ---
FP INFUSION FINISHED AT 1840. PATIENT STABLE, REQUESTING TO REST AT THIS TIME. VSS TEMP: 98.1 HR: 78 BP: 115/63 RESP: 16 SPO2: 97% CALL LIGHT WITHIN REACH, BED IN LOWEST POSITION. WILL ENDORSE TO NIGHT NURSE
--- NOTE | 2018-10-02 19:25 | NUR ---
RECEIVED PT LAYING IN BED, NO ACUTE DISTRESS OBSERVED, DENIES PAIN OR DISCOMFORT AT THIS TIME. AA/OX3, ABLE TO MAKE NEEDS KNOWN, SPEECH SLOW AND APPROPRIATE, AROUSABLE TO VERBAL STIMULI. NSR TO TELE #15, DENIES CP. PEDAL PULSES WEAK, NON PITTING EDEMA TO BLE. BREATHING ON RA, EVEN AND UNLABORED, NO SOB OR DYSPNEA OBSERVED, LUNGS CTA, O2 SAT 97% ABD ROUND AND SOFT WITH ACTIVE BOWEL SOUNDS, DENIES N/V/D. LOMBARDI CATH IN PLACE DRAINING DARK ADALID URINE TO GRAVITY HD. PT WITH LIJ MARIAM CATH, DRESSING CDI. HD SCHEDULED YESTERDAY BUT WAS UNABLE TO START DUE TO Shots NOT WORKING. GENERALIZED WEAKNESS, PER PHYSICAL THERAPY NOTE FROM YESTERDAY, AFTER MULTIPLE ATTEMPTS, PT REFUSED TO WORK WITH P.T. AIR MATTRESS IN PLACE, REPOSITION Q2H, OFF LOADING BOOTS TO BLE IN PLACE. OPTIFOAM IN PLACE TO SACRAL, CDI. 3RD AND 4TH TOE GANGRENE TO BOTH FEET, NITRO PASTE ORDERED, ROUTE AGENT. PREVIOUS BLISTERS AND SCATTERED DARK DISCOLORATION TO BOTH LEGS, VERSATELS AND DRESSING IN PLACE CDI. IV TO RFA IN PLACE, DRY, PATENT, INTACT, S/L AT THIS TIME, NO PAIN, REDNESS OR SWELLING NOTED WHEN FLUSHED WITH NS. COMFORT AND SAFETY MEASURES IN PLACE. BED IN LOWEST POSITION WITH SIDE RAILS UPX2 AND BED ALARM ACTIVATED. ALL NEEDS ASSESSED AND ATTENDED TO. CALL LIGHT WITHIN REACH. WILL CONTINUE TO MONITOR
--- NOTE | 2018-10-02 21:56 | NUR ---
MULTIPLE ATTEMPTS TO TAKE FOLLOW UP WOUND PHOTOS, PT REFUSES, WANTS TO SLEEP AND STATES TOO TIRED.
--- NOTE | 2018-10-02 23:55 | NUR ---
PT MADE AWARE FOR NEED TO BE NPO AT MIDNIGHT FOR POSSIBLE SURGERY IN THE MORNING. PT AGREED AND VERBALIZED UDNERSTANDING. PT REQUESTED SOME TO WET HIS MOUTH AT THIS TIME. PROVIDE WITH SMALL AMOUNT OF ICE FOR NOW. NO ACUTE DISTRESS OBSERVED. CALL LIGHT WITHIN REACH. WILL CONTINUE TO MONITOR
[2018-10-03 06:21] VITALS: BP 120/61
--- NOTE | 2018-10-03 06:27 | NUR ---
CONSENT OBTAINED FOR PLACEMENT OF TUNNELED HEMODIALYSIS CATH, SIGNED BY PT AND PLACED IN CHART. CHECK LIST INITIATED. ALL QUESTIONS AND CONCERNS ADDRESSED. NO OTHER SIGNIFICANT CHANGES TO REPORT, PT COMPLIED WITH NURSING CARE THROUGHOUT THE SHIFT WITH NO ACUTE EVENTS OVERNIGHT. COMFORT AND SAFETY MEASURES MAINTAINED. ALL NEEDS ASSESSED AND ATTENDED TO. CALL LIGHT WITHIN REACH. WILL CONTINUE TO MONITOR AND ENDORSE CARE TO DAY SHIFT NURSE
[2018-10-03 06:54] LABS: BASOPHIL % 0.3 % (0-2)
[2018-10-03 07:10] LABS: PLATELET COUNT 65 x10^3mcL (130-400); RED CELL DISTRIBUTION WIDTH 26.7 % (11.5-14.5)
--- NOTE | 2018-10-03 07:30 | NUR ---
PHYSICAL THERAPY DAILY NOTES CO-SIGN All documentation done by the Produce Weigher for 10/01/18 has been reviewed. I agree with the documentation. Reviewed/Co-Signed by: Naomi Mooney PT Documentation Done by:ANILA BROWN PTA
[2018-10-03 07:31] LABS: POTASSIUM SERUM 3.1 mmol/L (3.5-5.1)
[2018-10-03 07:49] LABS: PHOSPHOROUS 7.6 mg/dL (2.5-4.9); TOTAL PROTEIN, SERUM 7.3 g/dL (6.4-8.2)
--- NOTE | 2018-10-03 08:00 | NUR ---
RECEIVED PATIENT ALERT AND ORIENTED TIMES FOUR. PATIENT HAS GUARDS AT BEDSIDE AND SECURITY MAINTAINED. PATIENT IS NO FOR POSSIBLE SURGERY TODAY. LUNGS ARE DIMINIHHED AND BOWEL SOUNDS ACTIVE. PATIENT HAS SOME GENERAL WEAKNESS AND ENCOURAGE TO GET UP WITH PT AND TO MAINTAIN NPO STATUS. WILL CONTINUE TO MONITOR INDICATED.
[2018-10-03 08:26] LABS: ALBUMIN 2.2 g/dL (3.4-5.0); CREATININE SERUM 5.5 mg/dL (0.7-1.3)
[2018-10-03 08:35] LABS: BILIRUBIN TOTAL 42.3 mg/dL (0.20-1.00)
[2018-10-03 09:44] VITALS: BP 112/64
--- NOTE | 2018-10-03 10:30 | NUR ---
SPOKE WITH DR ACEVES AND NOTIFIED HIM THAT PER ANESTHESIOLOGIST POTASSIUM NEEDS TO BE CORRECTED PRIOR TO PROCEDURE. PER DR ACEVES TO GIVE KCL PO 20 MEQ X1 AND TO NOTIFY THE HD NURSE TO COME AND DO HD TODAY. JACKI FROM OR MADE AWARE AND ATTENDING NURSE FAINA AWARE.
--- NOTE | 2018-10-03 13:11 | NUR ---
ISAI WASHED THE PATIENT FOR SURGERY. PATIENT HAS K RIDER RUNNING AT THIS TIME. PATIENT HAS NO RECEIVED THE FFP YET AND REPORT WAS GIVEN TO THE OR ABOUT THE AVAILABILTY AND THE STATUS OF THE K RIDER. PATIENT IS CALM AND GUARDS AT BEDSIDE AND SECURITY MAINAINED.
[2018-10-03 13:32] VITALS: BP 119/71
--- NOTE | 2018-10-03 14:16 | NUR ---
1. Recommend continuing Renal (puree) diet w/ Nepro TID
--- NOTE | 2018-10-03 14:16 | NUR ---
Follow-up Nutrition Assessment: 226T/B FREDDIE FINN FU HR Dx: Septic shock, liver cirrhosis PMHx: ESLD Cirrhosis, HEP C, multiple substance abuses, ([facility] resident) Labs: (10/02): BUN 77H, CREAT 5.4H, AST 144H, ALT 84H, NA 133H Meds: D50%, Flagyl, humulin, Lasix, pepcid, reglan, procrit Diet: Puree (renal) w/ thin liquids PO Intake: (10/02) dinner 40%, (10/01) not documented Weights in kg: (09/22) 106, (09/24) 103, (09/28) 101.8, (10/03) - fluctuations may be d/t edema Skin: optifoam to sacral-coccygeal area, dressing to R neck Skin tear, BLE with dark discoloration/blister, BL toe gangrene. Dry dressing on upper R chest Niko: 13 I/Os: (10/03) 2285/2751 (-466) Edema: non pitting edema to BLE GI: Last BM: 10/02 RDN Visit (10/03): Patient was alert and oriented and said that his appetite is poor. Per progress note (10/02) plan for tunneled HD permacatheter placement if medically stable and coagulopathy corrected adequately. Pt. has multiple medical problems, acute/chronic renal failure, end stage liver disease, coagulopathy, pancytopenia. Estimated Nutritional Needs based on adjusted body weight 80.3 kg Energy: 8700-4724 kcal/day (30-32 kcal/kg- HD needs, ESLD, skin integrity) Protein: 96-112 g/d (1.2-1.4 g/kg)- HD, wounds Fluid: per MD as patient on HD Nutrition Diagnosis 1. Inadequate protein energy intake related to medical condition liver cirrhosis as evidenced by low PO, puree diet (Ongoing) Intervention 1. Recommend continuing Renal (puree) diet w/ Nepro TID Monitor/Evaluate Goal: Have pt meet at least 75% of estimated needs Monitor: TF intake/ tolerance, Labs, GI function F/U in 2-3 days as high risk 10/05-
--- NOTE | 2018-10-03 14:19 | NUR ---
Follow-up Nutrition Assessment: 226T/B FREDDIE FINN FU HR Dx: Septic shock, liver cirrhosis PMHx: ESLD Cirrhosis, HEP C, multiple substance abuses, ([facility] resident) Labs: (10/02): BUN 77H, CREAT 5.4H, AST 144H, ALT 84H, NA 133H Meds: D50%, Flagyl, humulin, Lasix, pepcid, reglan, procrit Diet: Puree (renal) w/ thin liquids PO Intake: (10/02) dinner 40%, (10/01) not documented Weights in kg: (09/22) 106, (09/24) 103, (09/28) 101.8, (10/03) - fluctuations may be d/t edema Skin: optifoam to sacral-coccygeal area, dressing to R neck Skin tear, BLE with dark discoloration/blister, BL toe gangrene. Dry dressing on upper R chest Niko: 13 I/Os: (10/03) 2285/2751 (-466) Edema: non pitting edema to BLE GI: Last BM: 10/02 RDN Visit (10/03): Patient was alert and oriented and said that his appetite is poor. Per progress note (10/02) plan for tunneled HD permacatheter placement if medically stable and coagulopathy corrected adequately. Pt. has multiple medical problems, acute/chronic renal failure, end stage liver disease, coagulopathy, pancytopenia. Estimated Nutritional Needs based on adjusted body weight 80.3 kg Energy: 3357-4776 kcal/day (30-32 kcal/kg- HD needs, ESLD, skin integrity) Protein: 96-112 g/d (1.2-1.4 g/kg)- HD, wounds Fluid: per MD as patient on HD Nutrition Diagnosis 1. Inadequate protein energy intake related to medical condition liver cirrhosis as evidenced by low PO, puree diet (Ongoing) Intervention 1. Recommend continuing Renal (puree) diet w/ Nepro TID Monitor/Evaluate Goal: Have pt meet at least 75% of estimated needs Monitor: TF intake/ tolerance, Labs, GI function F/U in 2-3 days as high risk 10/05-
--- NOTE | 2018-10-03 14:20 | NUR ---
1. Recommend continuing Renal (puree) diet w/ Nepro TID
--- NOTE | 2018-10-03 15:04 | NUR ---
BACK FROM CRUZ PLACEMENT AND TOLERATE WELL. CONTINUED ON K RIDER AND OTED FFP IS AVAILABLE NOW AND WILL GIVE. PATIENT IS SLEEPY BUT RESPONSIVE. GUARS AT BEDDSDIE AND SECURITY MAINTAINED.
[2018-10-03 16:44] VITALS: BP 119/67
--- NOTE | 2018-10-03 17:34 | NUR ---
PATIENT CONTINUED ON FFP. SO FAR TOLERATED WELL VITALS ARE STABLE.
--- NOTE | 2018-10-03 19:20 | NUR ---
PT RESTING IN BED COMFORTABLY, PT DENIES PAIN AT THIS TIME. ASSESSMENT PERFORMED AT THIS TIME, PT IS A/O X 4 BUT HAS SLOW SPEECH, PT DENIES WILKINSON OR DIZZINESS AT THIS TIME, IV TO THE RFA SALINE LOCKED, MARIAM CATH TO THE RIJ, TELE 15 SR. SAFETY PRECAUTIONS IN PL[address], WILL CONTINUE TO MONITOR
[2018-10-03 21:05] VITALS: BP 102/54
--- NOTE | 2018-10-03 22:30 | NUR ---
PT RESTING IN BED WITH NO ACUTE DISTRESS NOTED AT THIS TIME, CORRECTIONS OFFICERSAT BEDSIDE, PT EASILY AROUSABLE TO VERBAL STIMULI, DENIES PAIN OR SOB AT THIS TIME SAFETY PRECAUTIONS IN PLACE, WILL CONTINUE TO MONITOR
--- NOTE | 2018-10-04 00:50 | NUR ---
PT RESTING COMFORTABLY WITH EYES CLOSED NO ACUTE DISTRESS NOTED AT THIS TIME, PT EASILY AROUSABLE TO VERBAL STIMULI, PT DENIES PAIN, ALL NEEDS ATENDED TO AT THIS TIME, SAFETY PRECAUTIONS IN PLACE, WILL CONTINUE TO MONITOR, CORRECTIONS OFFICERS AT BEDSIDE.
--- NOTE | 2018-10-04 02:47 | NUR ---
PT IN BED RESTING WITH EYES CLOSED, NO SIGNS OF PAIN OR RESPIRATORY DISTRESS AT THIS TIME, SAFETY PRECAUTIONS IN PLACE, CORRECTIONS OFFICERS AT BEDSIDE, WILL CONTINUE TO MONITOR
--- NOTE | 2018-10-04 04:46 | NUR ---
REMOVED SOILED OPTIFOAM FROM COCCYX CLEANSED WITH NS AND REAPPLIED NEW OPTIFOAM, APPLIED ZGUARD TO AFFECTED AREAS, SAFETY PRECAUTIONS MAINTAINED, WILL CONTINUE TO MONITOR
--- NOTE | 2018-10-04 05:10 | NUR ---
PT HAD NO ACUTE DISTRESS THROUGH SHIFT, PT DENIED PAIN OR SOB THROUGH THE NIGHT, WOUND CARE WAS PERFORMED FOR PT, SAFETY PRECAUTIONS MAINTIANED, CORRECTIONS OFFICERS REMAINED AT BEDSIDE THROUGH NIGHT, WILL CONTINUE TO MONTOR AND ENDORSE CARE TO ONCOMING RN
[2018-10-04 05:54] VITALS: BP 101/55
[2018-10-04 06:36] LABS: BASOPHIL % 0.3 % (0-2)
[2018-10-04 07:05] LABS: CARBON DIOXIDE 22.4 mmol/L (21-32); PHOSPHOROUS 7.2 mg/dL (2.5-4.9); TOTAL PROTEIN, SERUM 7.3 g/dL (6.4-8.2)
--- NOTE | 2018-10-04 07:15 | NUR ---
RECEIVED PT FROM WEB CONSULTANT. PT DROWSY BUT AWAKE, ALERT. A/OX4 WITH SLOW SPEECH. PT ON ROOM AIR WITH NO RESP DISTRESS NOTED AT THIS TIME. IV ACCESS RFA CDI. PT HAS RIGHT IJ QUINTION CATH PLACED YESTERDAY WITH SOME BLOODY DRAINAGE NOTED TO BANDAGE. PT ON TELE 15, DENIES CHEST PAIN. PERIPHERAL PULSES PALPABLE, WEAK PEDAL PULSES NOTED. PT HAS BLACK DISCOLORATION TO BLE AND TOES. PT NOTED TO HAVE JAUNDICE. PT REPORTS PAIN TO BLE WHEN TOUCHED BUT WITH DIMINISHED FEELING. 2+ EDEMA NOTED TO BLE. SAFETY MEASURES IN PLACE, BED LOW AND LOCKED. CALL LIGHT WITHIN REACH.
[2018-10-04 07:28] LABS: ALBUMIN 2.2 g/dL (3.4-5.0)
[2018-10-04 07:29] LABS: BILIRUBIN TOTAL 42.28 mg/dL (0.20-1.00); CREATININE SERUM 5.9 mg/dL (0.7-1.3)
--- NOTE | 2018-10-04 07:45 | NUR ---
PHYSICAL THERAPY DAILY NOTES CO-SIGN All documentation done by the Tip Stitcher for 10/03/18 has been reviewed. I agree with the documentation. Reviewed/Co-Signed by: Naomi Mooney PT Documentation Done by:ANILA BROWN PTA
[2018-10-04 08:01] LABS: RED CELL DISTRIBUTION WIDTH 25.5 % (11.5-14.5); rbc morphology (normal/abnorm) ABNORMAL (NORMAL)
[2018-10-04 08:04] VITALS: BP 104/62
--- NOTE | 2018-10-04 09:20 | NUR ---
PT POTASSIUM 3.0, PHOS 7.2. DR SUE AWARE. PT NOTED TO HAVE WHITE COATED TONGUE. DR. SUE AWARE. PT TO HAVE HEMODIALYSIS TODAY.
[2018-10-04 09:58] LABS: PLATELET COUNT 49 x10^3mcL (130-400)
--- NOTE | 2018-10-04 10:05 | NUR ---
SPOKE TO DR. SUE SKIN CONDITION ON RIGHT DORSAL FOOT AND TOES REMAIN ON SAME CONDITION AND LEFT 3RD AND 4TH TOE NOT RESPONDING TO CURRENT TREATMENT. RECOMMEND FOR VASCULAR CONSULT. BLE DARK PIGMENTATION WITH DRY SCABS, NO NEW BLISTERS NOTICE.
--- NOTE | 2018-10-04 10:40 | NUR ---
HEMODIALYSIS NURSE AT BESIDE.
--- NOTE | 2018-10-04 10:54 | NUR ---
WOUND CARE PROVIDED WITH WOUND CARE NURSE. POTASSIUM ADMINISTERED PO ORDERED (SEE EMAR).
--- NOTE | 2018-10-04 12:32 | NUR ---
PT RECEIVING HEMODIALYSIS AT THIS TIME. WILL ADMINISTER DUE MEDICATIONS AFTER.
--- NOTE | 2018-10-04 13:20 | NUR ---
PT HEMODIALYSIS COMPLETE. 1.5 LITERS OUT PER HD NURSE. PT RESTING AT THIS TIME. SAFETY MAINTAINED.
--- NOTE | 2018-10-04 14:38 | NUR ---
PHYSICAL THERAPY NOTE ATTEMPTED FOR SCHEDULED PT SESSION. PATIENT ON DIALYSIS. TO BE SEEN FOR NEXT SESSION.
--- NOTE | 2018-10-04 16:26 | NUR ---
PT GETTING ARTERIAL ULTRASOUND OF THE LEFT LOWER EXTREMITY AT THIS TIME. PT ASLEEP AT THIS TIME. SAFETY MAINTAINED.
--- NOTE | 2018-10-04 18:27 | NUR ---
PT HAD LOOSE BM. PT CLEANED AND REPOSITIONED. SACRAL AREA CLEANED, ZGUARD APPLIED, NEW OPTIFOAM IN PLACE. PT TOLERATED WELL. PT EATING VERY LITTLE, PT FINISHED ENSURE. PT STABLE AT THIS TIME. ALL NEEDS TENDED TO THROUGHOUT SHIFT. WILL CONTINUE TO MONITOR AND ENDORSE CARE TO GLASS SANDER BELT.
[2018-10-04 18:54] VITALS: BP 118/69
--- NOTE | 2018-10-04 20:00 | NUR ---
Awake and responsive. No respiratory distress noted on room air. Denies pain at this time. Denies n/v. Jaundiced appearance. On contact isolation (+) c. difficile. Will cont.to monitor. Call light within reach.
[2018-10-04 21:33] VITALS: BP 99/56
--- NOTE | 2018-10-04 22:43 | NUR ---
Due med given and tolerated well. Appears comfortable. Will cont.to monitor.
--- NOTE | 2018-10-05 04:15 | NUR ---
Afebrile. No significant change in condition noted. No cues of pain. Turned and repositioned q2h. Kept pressure off back and bony prominences. Kept skin clean and dry. Heels floated. On pressure redistribution mattress. Contact isolation (+) C. Diff, proper use of PPE and good hand hygiene observed. In no apparent distress.
[2018-10-05 05:27] VITALS: BP 95/53
--- NOTE | 2018-10-05 07:50 | NUR ---
LETHARGIC AND ORIENTED. BREATHING FREELY ON RA. PT IS NOT MOTIVATED TO HELP HIMSELF. TELE # 15 NSR. MARIAM CATH TO RT IJ. NS TKO TO RT FA. GENERALIZED JAUNDICE ALL OVER BODY. GENERALIZED WEAKNESS. ORDER FOR P.T. ON AIR MATTRESS. BLACK SCABS TO LEFT AND RIGHT EAR LOBES ANNA. MULTIPLE SCATTERED DISCOLORATED SPOTS OVER THIGHS. PT ADMITS TO THOSE BEING OLD NEEDLE STICK AREAS. LOWER LEGS BLACK DISOLRAED PATCHES NURSE LEADER. FEET HAVE BLACK OPEN BLISTERS. LEFT HEEL REDENED AREA 7X5 CM, NOT OPENED, WEARING PADDED BOOTS. WOUNDS TO BUTTOCKS X 4 WITH OPTIFOAM. GUARDS AT BEDSIDE. LOMBARDI DRAINING DARK YELLOW URINE.
[2018-10-05 07:56] LABS: BASOPHIL % 0.2 % (0-2)
[2018-10-05 07:57] LABS: PLATELET COUNT 41 x10^3mcL (130-400); RED CELL DISTRIBUTION WIDTH 26.5 % (11.5-14.5)
[2018-10-05 07:58] LABS: rbc morphology (normal/abnorm) ABNORMAL (NORMAL)
[2018-10-05 08:16] LABS: CALCIUM 8.6 mg/dL (8.5-10.1); CARBON DIOXIDE 23.1 mmol/L (21-32); PHOSPHOROUS 5.2 mg/dL (2.5-4.9); POTASSIUM SERUM 3.2 mmol/L (3.5-5.1); TOTAL PROTEIN, SERUM 7.1 g/dL (6.4-8.2)
[2018-10-05 08:49] LABS: ALBUMIN 2.1 g/dL (3.4-5.0); BILIRUBIN TOTAL 40.5 mg/dL (0.20-1.00); CREATININE SERUM 4.7 mg/dL (0.7-1.3)
--- NOTE | 2018-10-05 11:30 | NUR ---
REPOSITIONED WITH PILLOWS WITH ASSIST FROM [employer].
--- NOTE | 2018-10-05 12:04 | NUR ---
REPOSITIONED WITH ASSIST FROM INTELLIGENCE ANALYST. CHANGED OPTIFOAM TO SACRAL AREA.
[2018-10-05 12:43] VITALS: BP 119/67
[2018-10-05 15:05] VITALS: BP 119/67
--- NOTE | 2018-10-05 16:19 | NUR ---
ISAI WIPES BATH, LOMBARDI CARE AND MARIAM CATH SITE DRESSING CHANGED.
[2018-10-05 17:45] VITALS: BP 120/68
--- NOTE | 2018-10-05 18:52 | NUR ---
POOR APPETITE THIS SHIFT. ACCEPTS SUPPLEMENT DRINKS WITH ENCOURAGEMENT. CONTACT ISOLATION FOR C-DIFF. 1 PASTY STOOL THIS SHIFT. 2 GUARDS AT BEDSIDE. ACCUCKS DC'D. NS INFUSING 5 CC TKO TO RT FA. REQUIRES MOD TO MAX ASSIST WITH ADL'S. MOTIVATION TO DO ANYTHING FOR HIMSELF IS LOW. SEEN BY DR. PRATT VASCULAR SPECIALIST TODAY. CURRENTLY NO NOTES FROM DR. PRATT. CALL LIGHT WITHIN REACH. CHANGED OPTIFOAM DRESSING TO SACRUM AGAIN AFTER BM. JAUNDICE ALL OVER. LOMBARDI DRAINING IODINE COLORED URINE. VSS. AFEBRILE
--- NOTE | 2018-10-05 19:45 | NUR ---
RECEIVED REPORT FROM AM NURSE. PT LAYING DOWN IN BED. PT AAOX4, LETHARGIC, ABLE TO MAKE NEEDS KNOWN. ON TELE#15 READING SR WITH T-WAVE ELEVATION. PALPABLE PULSES TO BLE. EDEMA TO BLE NOTED. DIMINISHED BREATH SOUNDS. BREATHING EVEN AND UNLABORED ON RA. ABD ROUND AND DISTENDED. ACTIVE BS X4 QUAD, DENIES N/V/D. FOLER CATH IN PLACE DRAINING DARK ADALID URINE. GENERALIZED WEAKNESS. BEDFAST AT THIS TIME. ON AIRMATTRESS. GENERALIZED JAUNDICE ALL OVER BODY. SCABS TO LEFT AND RIGHT EAR LOBES DIRECTOR OF MATERNITY SERVICES. MULTIPLE SCATTERED DISCOLORATED SPOTS OVER THIGHS. DISCOLORATED PATCHES TO BLE. OPEN BLISTER TO FEET DIRECTOR OF MATERNITY SERVICES. REDENED AREA TO LEFT HEEL ANNA. WEARING PADDED BOOTS. WOUNDS TO BUTTOCKS COVERED WITH OPTIFOAM. GUARDS AT BEDSIDE. [facility] MARIAM CATH WITH DRESSING CDI. IV TO RFA PATENT AND INTACT. SITE FREE FROM REDNESS AND SWELLING. BED AT LOWEST SETTING. SIDE RAILS X2 UP. CALLL LIGHT WITHING REACH. GUARDS AT BEDSIDE. WILL CONTINUE TO MONITOR.
[2018-10-05 20:09] VITALS: BP 109/60
--- NOTE | 2018-10-06 00:27 | NUR ---
PT LAYING DOWN IN BED WITH EYES CLOSED AND HOB ELEVATED. BREATHING EVEN AND UNLABORED ON RA. NO ACUTE DISTRESS NOTED. GUARDS AT BEDSIDE. BED AT LOWEST SETTING. SIDE RAILS X2 UP. CALL LIGHT WITHING REACH. WILL CONTINUE TO MONITOR.
[2018-10-06 05:43] VITALS: BP 115/69
--- NOTE | 2018-10-06 06:12 | NUR ---
PT SLEPT WELL THROGHOUT THE NIGHT. BREATHING EVEN AND UNLABORED ON RA. NO ACUTE DISTRESS NOTED. NO SIGNIFICANT CHANGE DURING THE SHIFT. LOMBARDI CARE RENDERED. ALL NEEDS ASSESSED AND ATTENDED TO. BED AT LOWEST SETTING. SIDE RAILS X2 UP. CALL LIGHT WITHING REACH. WILL ENDORSE CARE TO AM NURSE.
--- NOTE | 2018-10-06 07:30 | NUR ---
PT ENDORSE TO ME THIS MORNING LAYING IN BED RESTING, CIM GUARDS AT BEDSIDE. PT IS AA/O X4, BREATHING EVEN AND UNLABORED ON RA / LUNGS DIM ON RA. NO ACUTE RESP DISTRESS OR SOB NOTED .TELE 15 SR NOTED, HR 73 NOTED/ DENIES ANY CP OR PRESSURE. PULSES PRESENT/ BLE +2 NOTED, PRESSURE BOOTS APPLIED/ BOTH ELEVATED ON PILLOWS. BOWEL SOUNDS ACTIVE IN ALL FOUR QUADS. LOMBARDI INTACT AND DRAINING DARK ADALID URINE. HD PATIENT ON MWF= LAST HD WED 1.5 L OUT. GEN WEAKNESS ON AIR MATTRESS IS ABLE TO RESPOSITION SELF. DARK DISCOLORATION BLE AND TOES/ SACRAL WOUND NOTED/ OPTIFORM INPLACE, NO NEW DRAINAGE NOTED. IV TO THE RFA INTACT AND PATENT/HEPLOCKED. RIJ MARIAM CATH INTACT. WILL CONTINUE TO MONITOR/ X2 RAILS UP.
[2018-10-06 08:26] VITALS: BP 113/61
--- NOTE | 2018-10-06 09:24 | NUR ---
PT C/O BLE PAIN 5/10, MEDICATED PER EMAR. WILL CONTINUE TO MONITOR.
[2018-10-06 09:30] VITALS: BP 113/61
[2018-10-06 09:46] LABS: BASOPHIL % 0.3 % (0-2)
[2018-10-06 10:00] LABS: RED CELL DISTRIBUTION WIDTH 26.3 % (11.5-14.5)
[2018-10-06 10:17] LABS: CALCIUM 9.3 mg/dL (8.5-10.1); CARBON DIOXIDE 23.6 mmol/L (21-32); PHOSPHOROUS 6.1 mg/dL (2.5-4.9); POTASSIUM SERUM 3.2 mmol/L (3.5-5.1); TOTAL PROTEIN, SERUM 7.4 g/dL (6.4-8.2)
[2018-10-06 10:18] LABS: ALBUMIN 2.1 g/dL (3.4-5.0)
--- NOTE | 2018-10-06 10:20 | NUR ---
LAB CALLED TOTAL BILIRUBIN 41.8 DR. SUE MADE AWARE. WILL CONTINUE TO MONITOR.
[2018-10-06 10:29] LABS: CREATININE SERUM 5.9 mg/dL (0.7-1.3)
[2018-10-06 10:30] LABS: BILIRUBIN TOTAL 41.8 mg/dL (0.20-1.00)
[2018-10-06 10:44] LABS: rbc morphology (normal/abnorm) ABNORMAL (NORMAL)
[2018-10-06 10:56] LABS: PLATELET COUNT 42 x10^3mcL (130-400)
[2018-10-06 12:18] VITALS: BP 112/55
--- NOTE | 2018-10-06 14:00 | NUR ---
PT HAVING EXAM DONE. WILL RETURN FOR NTX
--- NOTE | 2018-10-06 14:28 | NUR ---
1. Recommend continuing Renal (puree) diet w/ Nepro TID
--- NOTE | 2018-10-06 14:28 | NUR ---
Follow-up Nutrition Assessment: 226T/B FREDDIE FINN RADHA HR Dx: Septic shock, liver cirrhosis PMHx: ESLD Cirrhosis, HEP C, multiple substance abuses, ([facility] resident) Labs: (10/05): BUN 62H, CREAT 4.7H, AST 145H, NA 135H Meds: D50%, Flagyl, humulin, pepcid, phoslo Diet: Puree (renal) w/ thin liquids, Nepro QID PO Intake: (10/06) breakfast 60%, (10/02) dinner 40%, (10/05, 10/04) not documented Weights in kg: (09/22) 106, (09/24) 103, (09/28) 101.8, (10/06) 102 - fluctuations may be d/t edema Skin: optifoam to sacral-coccygeal area, dressing to R neck Skin tear, BLE with dark discoloration/blister, BL toe gangrene. Dry dressing on upper R chest Niko: 13 I/Os: (10/05) 1190/700 (490) Edema: non pitting edema to BLE GI: Last BM: 10/05 RDN Visit (10/06): Patient was sleeping. Per RN Manju, pt. ate most of his breakfast this morning and 50% lunch in the afternoon. Patient does not have any N/V/D/C at this time. Per [facility] Police that were by the bedside, pt. has been drinking Nepro. Patient had HD yesterday with 1.5 L out. Estimated Nutritional Needs based on adjusted body weight 80.3 kg Energy: 5082-0295 kcal/day (30-32 kcal/kg- HD needs, ESLD, skin integrity) Protein: 96-112 g/d (1.2-1.4 g/kg)- HD, wounds Fluid: per MD as patient on HD Nutrition Diagnosis 1. Inadequate protein energy intake related to medical condition liver cirrhosis as evidenced by low PO, puree diet (ongoing). 2. Increased nutrient needs related to increased metabolic demands as evidenced by pt. on hemodialysis. Intervention 1. Recommend continuing Renal (puree) diet w/ Nepro TID Monitor/Evaluate Goal: Have pt meet at least 75% of estimated needs Monitor: TF intake/ tolerance, Labs, GI function F/U in 3-5 days as moderate risk
--- NOTE | 2018-10-06 15:10 | NUR ---
HD RN MOROCHO AT BEDSIDE, PT WILL HAVE HD TODAY. WILL CONTINUE TO MONITOR.
[2018-10-06 16:00] VITALS: BP 105/63
--- NOTE | 2018-10-06 17:15 | NUR ---
PT HAD X1 PASTE BM, CLEAN AND CHANGED OPTIFORM DRSG TO SACRAL/ APPLIED ZG TO AREA. PT TOLERATED WELL.
--- NOTE | 2018-10-06 18:55 | NUR ---
NO ACUTE CHANGES AT THIS TIME. NO ACUTE RESP DISTRESS OR SOB NOTED. HD COMPLETE= TOTAL OUTPUT 1.5L / TOLERATED WELL. DENIES ANY BLE PAIN OR DISCOMFORT AT THIS TIME. WILL ENDORSE TO INCOMING RN.
--- NOTE | 2018-10-06 19:30 | NUR ---
RECEIVED REPORT FROM AM NURSE. PT LAYING DOWN IN BED. PT AAOX4, ABLE TO MAKE NEEDS KNOWN. ON TELE#15 READING SR WITH T-WAVE ELEVATION. PALPABLE PULSES TO BLE. EDEMA TO BLE NOTED. DIMINISHED BREATH SOUNDS. BREATHING EVEN AND UNLABORED ON RA. ABD ROUND AND DISTENDED. ACTIVE BS X4 QUAD, DENIES N/V/D. FOLER CATH IN PLACE DRAINING DARK ADALID URINE. GENERALIZED WEAKNESS. BEDFAST AT THIS TIME. ON AIRMATTRESS. GENERALIZED JAUNDICE ALL OVER BODY. SCABS TO LEFT AND RIGHT EAR LOBES FOOD AND NUTRITION TEACHER. MULTIPLE SCATTERED DISCOLORATED SPOTS OVER THIGHS. DISCOLORATED PATCHES TO BLE. OPEN BLISTER TO FEET ANNA. REDENED AREA TO LEFT HEEL FOOD AND NUTRITION TEACHER. WEARING PADDED BOOTS. WOUNDS TO BUTTOCKS COVERED WITH OPTIFOAM. GUARDS AT BEDSIDE. [facility] CATH WITH DRESSING CDI. IV TO RFA PATENT AND INTACT. SITE FREE FROM REDNESS AND SWELLING. BED AT LOWEST SETTING. SIDE RAILS X2 UP. CALLL LIGHT WITHING REACH. GUARDS AT BEDSIDE. WILL CONTINUE TO MONITOR.
[2018-10-06 21:11] VITALS: BP 96/59
--- NOTE | 2018-10-07 00:26 | NUR ---
PT LAYING DOWN IN BED WITH HOB ELEVATED. BREATHING EVEN AND UNLABORED ON RA. NO ACUTE DISTRESS NOTED. GUARDS AT BEDSIDE. BED AT LOWEST SETTING. SIDE RAILS X2 UP. CALL LIGHT WITHING REACH. WILL CONTINUE TO MONITOR.
--- NOTE | 2018-10-07 02:01 | NUR ---
RECEIVED TELEPHONE ORDER FROM DR BEAUCHAMP FOR ZOSYN IV Q8H. ORDER PUT IN.
[2018-10-07 05:40] VITALS: BP 108/60
--- NOTE | 2018-10-07 05:43 | NUR ---
PT SLEPT WELL THROGHOUT THE NIGHT. BREATHING EVEN AND UNLABORED ON RA. NO ACUTE DISTRESS NOTED. NO SIGNIFICANT CHANGES DURING SHIFT. LOMBARDI CARE RENDERED. OPTIFOAM TO SACRAL AREA CHANGED AND Z-GUARD CREAM APPLIED. BED AT LOWEST SETTING. SIDE RAILS X2 UP. CALL LIGHT WITHING REACH. WILL ENDORSE CARE TO AM NURSE.
--- NOTE | 2018-10-07 06:36 | NUR ---
PHYSICAL THERAPY DAILY NOTES CO-SIGN All documentation done by the Supervisor Powder And Primer Canning for 10/06/18 has been reviewed. I agree with the documentation. Reviewed/Co-Signed by: Naomi Mooney PT Documentation Done by:ANILA BROWN PTA
[2018-10-07 06:48] LABS: CALCIUM 8.4 mg/dL (8.5-10.1); CARBON DIOXIDE 25.1 mmol/L (21-32); POTASSIUM SERUM 3.2 mmol/L (3.5-5.1)
[2018-10-07 07:13] LABS: CREATININE SERUM 4.8 mg/dL (0.7-1.3)
[2018-10-07 07:17] LABS: BILIRUBIN TOTAL 40.1 mg/dL (0.20-1.00)
--- NOTE | 2018-10-07 07:50 | NUR ---
PATIENT RESTING IN BED, NO ACUTE DISTRESS NOTED. TELE MONITOR IN PLACE. DENIES PAIN. EDEMA NOTED T JAIDEN LOW EXTREMITIED, EDUCATED PATIENT TO MAINTAIN BLE ELVATED. LUNG SOUNDS DIMINISHED TO THE BASES, PATIENT ON ROOM AIR, DENIES SOB. DARK ADALID URINE NOTED IN LOMBARDI, DRAINING TO GRAVITY. AIR MATRESS IN PLACE, OFF LOADING BOOTS APPLIED. IV TO RFA SALINE LOCK, CDI & PATENT, NO S/S OF INFILTRATION. RIJ QUNTON CATH NOTED. CIM GUARDS X2 AT BEDSIDE. CALL LIGHT WITHIN REACH, BED IN LOW POSITION, WILL CONTINUE TO MONITOR FOR CHANGES.
[2018-10-07 07:51] LABS: TOTAL PROTEIN, SERUM 6.6 g/dL (6.4-8.2)
[2018-10-07 09:55] VITALS: BP 110/60
--- NOTE | 2018-10-07 11:10 | NUR ---
DR SUE AWARE PATIENT TOTAL BILI:40.1 NA:132 K:3.2 CA:8.4, NO FURTHER ORDERS AT THIS TIME, WILL CONTINUE TO MONITOR FOR CHANGES.
--- NOTE | 2018-10-07 12:53 | NUR ---
PATIENT AMBULATING TO THE BATHROOM, SLOW GAIT NOTED. PHYSICAL THERAPY AT BEDSIDE.
[2018-10-07 13:00] VITALS: BP 115/64
--- NOTE | 2018-10-07 15:13 | NUR ---
PHYSICAL THERAPY DAILY NOTES CO-SIGN All documentation done by the Body Piercer for 10/07/18 has been reviewed. I agree with the documentation. Reviewed/Co-Signed by: Naomi Mooney PT Documentation Done by:ANILA BROWN PTA
--- NOTE | 2018-10-07 16:16 | NUR ---
WOUND CARE RE-EVALUATION NOTE: WOUND ASSESSMENT DONE TO PT. WITH REVIEW OF VASCULAR CONSULT AND PODIATRY CONSULT RECOMMENDATIONS. PODIATRY PLACED ORDER TO LEFT FOOT/TOES. PT. WAS INSTRUCTED TO INCREASE BED MOBILITY AND MOISTURE CONTROL AT ALL TIMES. POC DISCUSSED WITH PRIMARY RN, ALSO TO REQUEST WEEKLY PHOTO DOCUMENTATION TO WOUNDS, PRIMARY RN VERBALIZES UNDERSTANDING. INTEGUMENTARY: -BILATERAL LOWER EXTREMITIES ANTERIOR AND POSTERIOR WITH MULTIPLE DRY SCABS DARK PIGMENTATION WITH VASETEL DRESSING IN PLACE DRY AND CLEAN, NO NEW BLISTERS DEVELOP. -RIGHT DORSAL FEET/TOES WITH LIGHT PURPLE DISCOLORATION AND SKIN INTACT -LEFT DORSAL FOOT WITH 3RD AND 4TH TOES EXAMED AND TREATED BY PODIATRY -LEFT LATERAL HEEL PREVIOUS DEEP TISSUE INJURY PROGRESS TO PRESSURE ULCER UN-STAGEABLE 4X3CM 100% BROWN STABLE ESCHAR, TOM WOUND SKIN INTACT -SACRALCOCCYX PRESSURE ULCER STAGE 2 WITH WOUND BEDS 100% GRANULATING TISSUE, MOIST SUPERFICIAL DEPTH, NO ODOR. PREVIOUSLY BUTTERFLY SHAPE AND DENUDED PURPLE TOM-WOUND HEALING PROGRESS TO MULTIPLE SMALL AREAS AND LARGEST TO SACRALCOCCYX 3X4CM SUPERFICIAL DEPTH, AND SMALLEST TO RIGHT BUTTOCK DIRECTION 1X0.5CM. SURROUNDING SKIN DRYNESS WITH REDNESS LIGHT PURPLE COLOR INDICATED FURTHER DAMAGE. -INCONTINENT ASSOCIATE DERMATITIS TO SCROTAL AND PERINEUM, SKIN REDNESS IMPROVING AND RESPONDING TO TREATMENT PLAN RECOMMENDATIONS: -CONTINUE TO APPLY SKIN PREP TO LEFT HEEL BID AND LEAVE IT OPEN TO AIR -APPLY VERSATEL DRESSING TO BLE SCABS PRN IF SOILING, APPLY HYDRAGUARD TO DRYNESS AREA QD AND LEAVE IT OPEN TO AIR. -CLEANSE SACRALCOCCYX WITH NS. PAT. DRY APPLY Z GUARD AND OPTIFOAM QD AND PRN IF SOILING -CLEANSE SCROTAL AND PERINEUM AREA WITH SOAP AND WATER, PAT DRY, APPLY Z GUARD QD AND PRN IF SOILING. -APPLY HEEL PROTECTOR TO BILATERAL HEELS WHEN IN BED -OFFLOAD BILATERAL HEELS BY PLACING PILLOWS UNDER CALVES UNLESS OTHERWISE CONTRAINDICATED -PRESSURE REDISTRIBUTION SURFACE THERAPY -TURN AND REPOSITION Q2H, OFFLOAD SACRALCOCCYX -CONTINUE TO FOLLOW RD RECOMMENDATIONS RECOMMENDATIONS DISCUSSED WITH PRIMARY RN WILL FOLLOW UP PATIENT Q7-10 DAYS AND PRN. PLEASE CONTACT WOUND CARE NURSE FOR ANY QUESTIONS AND CHANGES IN SKIN CONDITION.
[2018-10-07 16:38] VITALS: BP 115/62
--- NOTE | 2018-10-07 17:20 | NUR ---
PROVIDED PATIENT WITH DRESSING CHANGE TO SACRAL AND TO LEFT FOOT. PHOTOS TAKEN AT THIS TIME, PLACED IN THE CHART. PATIENT DENIES PAIN. NO ACUTE CHANGES NOTED THROUGH OUT SHIFT, PATIENT IS STABLE. IV TO RIGHT FA SALINE LOCK, NO S/S OF INFILTRATION. ALY CROUCH CDI. CALL LIGHT WITHIN REACH, BED IN LOW POSITON. ANJEL CONDON X2 AT BEDSIDE FOR SAFETY. WILL ENDORSE REPORT TO NIGHT RN.
--- NOTE | 2018-10-07 19:20 | NUR ---
RECEIVED OT FROM DAY SHIFT RN. PT IS ALERT AND ORIENTED X4 AND CURRENTLY RESTING IN BED WITH GUARDS AT THE BEDSIDE. PT DENIES CHEST PAIN OR SHORTNESS OF BREATH AT THIS TIME ON ROOM AIR. BREATHING IS EVEN AND UNLABORED. PT DOES NOT APPEAR TO BE IN ANY ACUTE DISTRESS AT THIS TIME. TELE #[address] PT ON AIR MATTRESS. DARK DISCOLORATION NOTED TO THE BILATERAL LOWER EXTREMITIES. LEFT FOOT AREA WRAPPED WITH BETADINE SOAKED GAUZE. PT TOLERATING WELL. THERE IS A [facility]IAM CATH NOTED. CLEAN DRY AND INTACT. RFA IV CLEAN DRY AND INTACT. SAFETY MEASURES ARE IN PLACE. BED IS IN THE LOWEST POSITION. CALL LIGHT IS WITHIN REACH. WILL CONTINUE TO MONITOR PT.
--- NOTE | 2018-10-07 20:52 | NUR ---
PT HANDLED MEDICATION ADMINISTRATION WELL. PT ABLE0 TO SWALLOW PILLS WITHOUT COMPLICATIONS. IV SITE PATENT. PT DENIES PAIN AT THIS TIME. WILL CONTINUE TO MONITOR.
[2018-10-07 21:06] VITALS: BP 112/62
--- NOTE | 2018-10-08 01:11 | NUR ---
PT PULLED UP IN BED. REPOSITIONED. PT HAD A BM. CURRENTLY RESTING IN BED. NO DISTRESS NOTED. NO USE OF ACCESSORY MUSCLES.
[2018-10-08 05:35] VITALS: BP 112/54
--- NOTE | 2018-10-08 07:50 | NUR ---
PATIENT IS SLEEPING IN BED, AROUSABLE TO TOUCH. PATIENT DENIES PAIN. TELE MONITOR IN PLACE. EDEMA NOTED TO BLE, EDUCATED PATIENT TO MAINTAIN BLE ELEVATED. LUNG SOUNDS DIMINISHED TO THE BASES, DENIES SOB, ON ROOM AIR. ASPIRATION PRECAUTIONS IN PLACE. LOMBARDI CATH IN PLACE, DRAINING TO GRAVITY. AIR MATRESS IN PLACE. OFF LOADING BOOTS APPLIED. IV TO RFA SALINE LOCK, CDI & PATENT, NO S/S OF INFILTRATION. RIJ QUINTION CATH CDI. CIM GUARDS X2 AT BEDSIDE. CALL LIGHT WITHIN REACH, BED IN LOW POSITION, WILL CONTINUE TO MONITOR.
[2018-10-08 08:49] VITALS: BP 112/54
[2018-10-08 09:28] VITALS: BP 106/53
--- NOTE | 2018-10-08 11:00 | NUR ---
PODIATRY AT BEDSIDE, DRESSING TO BLE CHANGED AT THIS TIME. PATIENT DENIES PAIN. CALL LIGHT WITHIN REACH, BED IN LOW POSITION. WILL CONTINUE TO MONITOR.
--- NOTE | 2018-10-08 12:10 | NUR ---
MEDICATIONS GIVEN AT THIS TIME. MEDICATIONS CRUSHED AND MIXED WITH APPLE SAUCE, PATIENT TOLERATED PO MEDS. ALL QUESTIONS AND CONCERNS ADDRESSED AT THIS TIME. CALL LIGHT WITHIN REACH, BED IN LOW POSITION.
[2018-10-08 12:26] VITALS: BP 109/59
--- NOTE | 2018-10-08 14:45 | NUR ---
TB SKIN TEST DONE AT THIS TIME, 0.1ML OF TUBERCULIN ADMINISTERED INTRADERMALLY TO LEFT FOREARM. PATIENT INSTRUCTED NOT TO SCRATCH OR RUB INJECTION SITE. WILL CONTINUE TO MOITOR PATIENT.
[2018-10-08 17:32] VITALS: BP 102/52
--- NOTE | 2018-10-08 18:46 | NUR ---
PATIENT IS SLEEPING IN BED, NO ACUTE CHANGES NOTED THROUGH OUT SHIFT. TELE MONITOR IN PLACE. LOMBARDI CATH DRAINING TO GRAVITY, DARK ADALID URINE NOTED. OFF LOADING BOOTS IN PLACE. RFA SALINE LOCK, NO S/S OF INFILTRATION. ALY CROUCH CDI. ANJEL CONDON X2 AT BEDSIDE FOR SAFETY. CALL LIGHT WITHIN REACH, BED IN LOW POSITION, WILL ENDORSE REPORT TO NIGHT NURSE.
--- NOTE | 2018-10-08 19:20 | NUR ---
RECEIVED PT FROM DAY SHIFT RN. PT IS ALERT AND ORIENTED X4 AND CURRENTLY RESTING IN BED, RECEIVIGN HEMODIALYSIS. PT DOES NOT APPEAR TO BE IN ANY ACUTE DISTRESS AT THIS TIME. PT DENIES CHEST PAIN OR SHORTNESS OF BREATH ON ROOM AIR. TELE #[address] PT ON CONTACT ISOLATION. BREATHING EVEN AND UNLABORED AT THIS TIME. LOMBARDI CATHETER IN PLACE DRAINING DARK AMEBER URINE. SKIN IS JAUNDICED. DARK DICOLORATION NOTED TO BLE AND TOES. LEFT HEEL SCAR NOTED, OPEN WOUND. RFA IV CLEAN DRY AND INTACT AT THIS TIME. RIJ MARIAM CATH CLEAN DRY AND INTACT AT THIS TIME. SAFETY MEASURES ARE IN PLACE. BED IS IN THE LOWEST POSITION. CALL LIGHT IS WITHIN REACH, WILL CONTINUE TO MONITOR PT.
--- NOTE | 2018-10-08 21:46 | NUR ---
HEMODIALYSIS NURSE STILL AT THE BEDSIDE. HOLDING ALL PM MEDICATIONS UNTIL PT IS OFF HEMODIALYSIS. PT DOES NOT APPEAR TO BE IN ANY DISTRESS.
[2018-10-08 21:51] VITALS: BP 102/58
--- NOTE | 2018-10-08 22:45 | NUR ---
PT COMPLETED HEMODIALYSIS WITH 1.5 L OUT. BP: 100/60. PT DENIES CHEST PAIN OR SHORTNESS OF BREATH AT THIS TIME. NO DISTRESS NOTED. PT CURRENTLY RESTING IN BED. WILL CONTINUE TO MONITOR.
--- NOTE | 2018-10-09 02:49 | NUR ---
PT HAD A BM. SOFT AND FORMED. NO LOOSE STOOLS NOTED. PT REPOSITONED. TOLERATING WELL.
[2018-10-09 05:39] VITALS: BP 106/53
[2018-10-09 07:47] LABS: CALCIUM 7.8 mg/dL (8.5-10.1); CARBON DIOXIDE 22.4 mmol/L (21-32); PHOSPHOROUS 4.3 mg/dL (2.5-4.9); POTASSIUM SERUM 3.3 mmol/L (3.5-5.1); TOTAL PROTEIN, SERUM 6.8 g/dL (6.4-8.2)
[2018-10-09 07:56] LABS: PLATELET COUNT 46 x10^3mcL (130-400); RED CELL DISTRIBUTION WIDTH 25.8 % (11.5-14.5)
--- NOTE | 2018-10-09 08:00 | NUR ---
SHIFT ASSESSMENT DOEN. PATIENT A/A/OX3; ABLE TO MADE NEEDS KNOWN. TELE#15; SR; HR =98. NO RESP DISTRESS ON RA. O2 SAT 98%. ABD ROUND/SOFT. LOOSE BM. POOR APPETITE. MARIAM LU. DRSG INTACT. IVHL'D TO RFA. LOMBARDI PATENT W/ DARK ADALID CLOUDY URINE. OPTIFORM DRSG TO COCCYX AREA INTACT. MULTIPLE WOUND TO BLE. EDEMA 1+ BLE. HEEL PROTECTORS BLE. ON AIR MATTRESS. NO C/O PAIN NOW. GENERAL JAUDISE (+++). CIM GUARDS IN ROOM.
[2018-10-09 08:46] LABS: ALBUMIN 1.8 g/dL (3.4-5.0)
[2018-10-09 08:48] LABS: CREATININE SERUM 5.4 mg/dL (0.7-1.3)
[2018-10-09 08:49] LABS: BILIRUBIN TOTAL 37.53 mg/dL (0.20-1.00)
[2018-10-09 09:11] VITALS: BP 110/61
[2018-10-09 12:19] LABS: BAND NEUTROPHIL 6 % (0-10); BASOPHIL 1 % (0-2); MONOCYTE 13 % (0-7); SEGMENTED NEUTROPHILS 65 % (37-75)
[2018-10-09 12:21] LABS: ovalocyte/elliptocyte 1+; rbc morphology (normal/abnorm) ABNORMAL (NORMAL)
[2018-10-09 12:22] LABS: target cell (codocyte) 1+
[2018-10-09 12:23] LABS: PLATELET MORPHOLOGY PLATELETS DECREASED
[2018-10-09 12:38] VITALS: BP 103/51
--- NOTE | 2018-10-09 15:00 | NUR ---
DRSG TO COCCYX AREA CHANGED. Z GUARD APPLIED.
[2018-10-09 17:34] VITALS: BP 104/51
--- NOTE | 2018-10-09 19:00 | NUR ---
CONDITION STABLE. PATIENT FINISHED 50% OF REGULAR DIET FOR LUNCH. REFUSED DINNER AND C/O NO APPETITE. F/C 100CC CLOUD ADALID URINE. BM X5 THIS SHIFT ( 2 MOD, 3 SMALL). ENDORSED TO NOC NURSE.
--- NOTE | 2018-10-09 19:10 | NUR ---
REPORT RECEIVED FROM DAY SHIFT RN. PATIENT WAS SEEN AND IS RESTING COMFORTABLY IN BED. NO DISTRESS NOTED. GENERALIZED JAUNDICE NOTED. BREATHING EVEN AND UNLABORED ON ROOM AIR. NO SOB OR RESP DISTRESS NOTED. NO C/O PAIN. DENIES CHEST PAIN/PRESSURE. IV TO THE RFA, 22G, PATENT AND INTACT. NO REDNESS OR SWELLING NOTED. [facility] CATH FOR HD. LOMBARDI CATH IN PLACE DRAINING DARK ADALID URINE BY GRAVITY. COMFORT AND SAFETY MEASURES IN PLACE. BED IS LOCKED AND IN THE LOWEST POSITION. SIDE RAILS UP X2. CALL LIGHT IS WITHIN REACH. WILL CONTINUE TO MONITOR.
[2018-10-09 21:34] VITALS: BP 99/49
--- NOTE | 2018-10-10 02:36 | NUR ---
PATIENT IS RESTING IN BED WITH EYES CLOSED. NO DISTRESS NOTED. BREATHING EVEN AND UNLABORED ON ROOM AIR. NO S/S OF PAIN NOTED. CALL LIGHT IS WITHIN REACH. WILL CONTINUE TO MONITOR.
[2018-10-10 05:28] VITALS: BP 102/54
--- NOTE | 2018-10-10 06:34 | NUR ---
PATIENT RESTED IN LONG INTERVALS THROUGHOUT THE NIGHT. NO DISTRESS NOTED. BREATHING EVEN AND UNLABORED ON ROOM AIR. NO ACUTE CHANGES NOTED. RIJ MARIAM CATH. IV TO THE RFA. PATENT AND INTACT. NO REDNESS OR SWELLING NOTED. NO C/O PAIN. LOMBARDI CATH IN PLACE DRAINING BY GRAVITY. LOW URINE OUTPUT:25ML. COLOR LOOKS THICK AND DARK ADALID/BROWN. ALL NEEDS AND CONCERNS ADDRESSED. WOUND CARE PROVIDED TO BILATERAL TOES/FEET WITH BETADINE. LEFT FOOT WITH 4X4 GUAZE AND KERLIX WITH MANJULA WRAP. ZGAURD APPLIED TO SACRAL COCCYX W/ OPTIFOAM. SAFETY MEASURES IN PLACE. CALL LIGHT IS WITHIN REACH. WILL ENDORSE CARE TO DAY SHIFT RN.
--- NOTE | 2018-10-10 07:30 | NUR ---
RECEIVED PT FROM REPRODUCER RN. Namrata/YEIMI. TELE#15. DENIES CHEST PAIN/PRESSURE. RESPIRATIONS EQUAL AND UNLABORED ON RA. DENIES SOB AT THIS TIME. PT C/O OF VOMITING X1. PT DENIES ANY NAUSEA AT THIS TIME. PT STATES "I THINK I WAS JUST HUNGRY. AFTER I STARTED EATING, I NO LONGER FEEL NAUSEA" PT DENIES ANY PAIN AT THIS TIME. DRESSING TO BLE AND TOES, CDI. HEEL BOOTIES IN PLACE. IV TO RFA SALINE LOCKED. NO REDNESS OR SWELLING NOTED. 2 GUARDS AT BEDSIDE. WILL CONTINUE TO MONITOR. CALL LIGHT IN REACH. BED IN LOWEST POSITION.
[2018-10-10 08:56] VITALS: BP 90/45
--- NOTE | 2018-10-10 09:10 | NUR ---
PT UP WITH PHYSICAL THERAPIST ANILA. PT USED BATHROOM. STOOL SOFT AND FORMED. PT TOLERATING WELL.
--- NOTE | 2018-10-10 09:53 | NUR ---
PT IN BED SLEEPING. DROWSY BUT AROUSABLE TO VOICE. NO ACUTE RESP DISTRESS NOTED ON RA. PT DENIES ANY SOB AT THIS TIME. RESPIRATORY THERAPIST MALAIKA AT BEDSIDE, PT FINISHED BREATHING TREATMENT. GIVEN PO MEDS. TOLERATED WELL. PT STATES "I JUST FEEL TIRED AFTER GETTING UP WITH PHYSCIAL THERAPY. IV SALINE LOCKED TO RFA. NO REDNESS OR SWELLING NOTED. PT DENIES ANY PAIN AT THIS TIME. 2 GUARDS AT BEDSIDE. WILL CONTINUE TO MONITOR. CALL LIGHT IN REACH. BED IN LOWEST POSITION.
--- NOTE | 2018-10-10 12:10 | NUR ---
PT SITTING UP IN BED. NO ACUTE RESP DISTRESS NOTED ON RA. PT DENIES ANY PAIN AT THIS TIME. DR. CASANOVA AT BEDSIDE. DR. CASANOVA ENCOURAGING PT TO SIT UP IN CHAIR AFTER WORKING WITH PHYSICAL THERAPY. PT VERBALIZED UNDERSTANDING. GIVEN PO MEDS. TOLERATED WELL. IV TO RFA FLUSHED WELL. NO REDNESS OR SWELLING NOTED. WILL CONTINUE TO MONITOR. CALL LIGHT IN REACH. BED IN LOWEST POSITION.
--- NOTE | 2018-10-10 13:01 | NUR ---
PT IN BED. NO ACUTE RESP DISTRESS NOTED ON RA. IV ZOSYN COMPLETE. IV SALINE LOCKED TO RFA. NO REDNESS OR SWELLING NOTED. PT STATES "I WANT TO WAIT TO EAT LATER" ENCOURAGED PT TO USE CALL LIGHT WHEN NEEDING ASSISTANCE EATING LUNCH. PT VERBALIZED UNDERSTANDING. WILL CONTINUE TO MONITOR. CALL LIGHT IN REACH. BED IN LOWEST POSITION.
[2018-10-10 13:15] VITALS: BP 101/53
--- NOTE | 2018-10-10 15:30 | NUR ---
SPOKE TO DR. CHARBEL Cage AND DR. ADLER TO CLARIFY ORDER FOR RIGHT HEEL WOUND.
[2018-10-10 17:35] VITALS: BP 97/47
--- NOTE | 2018-10-10 18:09 | NUR ---
SPOKE WITH DR. LICONA GIVEN UPDATES ON PT STATUS. NO NEW ORDERS RECEIVED.
--- NOTE | 2018-10-10 18:16 | NUR ---
PT SITTING UP IN BED. NO ACUTE RESP DISTRESS NOTED ON RA. GIVEN PO MEDS. TOLERATED WELL. APPLIED SKIN PREP TO LEFT ANKLE, KEPT COVERED WITH MANJULA WRAP. APPLIED VERSATEL TO RIGHT ANKLE AND BEHIND RIGHT KNEE, SHEETER HELPER. APPLIED HYDRAGUARD TO DRYNESS ON BLE. CLEANSED SACRUM WITH NS, APPLIED Z-GUARD AND OPTIFOAM DRESSING. CLEANSED SCROTUM AND PERINEUM WITH SOAP AND WATER, APPLIED Z-GUARD. BILATERAL HEEL PROTECTORS IN PLACE. ASSISTED PT TO SIT UP IN BED. TOLERATED WELL. WILL CONTINUE TO MONITOR. CALL LIGHT IN REACH. BED IN LOWEST POSITION.
--- NOTE | 2018-10-10 19:35 | NUR ---
RECEIVED PT FROM DAY SHIFT RN. PT AAOX4. DENIES WILKINSON/DIZZINESS. TELE #15. PT DENIES CHEST PAIN/PRESSURE. BREATHING EVEN AND UNLABORED ON RA WITH NO SOB NOTED. ABD SOFT/ROUND ACTIVE BOWEL SOUNDS. DENIES ABD PAIN/N/V. F/C IN PLACE DRAINING MINIMAL DARK BROWN COLOR URINE. GENERALIZED WEAKNESS. HEEL PROTECTOR BOOTS ON. DARK ECCHYMOSIS TO BLE/TOES. JAIDEN HEEL COVERED WITH DRESSING. SACRAL OPTIFOAM IN PLACE. IV RFA PATENT. [facility] CATH, PATENT. PT CALM AND COOPERATIVE. NO SIGNS OF DISTRESS. CALL BUTTON WITHIN REACH. GUARDS AT BEDSIDE. WILL CONTINUE TO MONITOR.
--- NOTE | 2018-10-10 20:00 | NUR ---
PT SCHEDULED FOR HD 10/11/18 AT 0800 AM. MOROCHO FROM DIALYSIS MADE AWARE.
[2018-10-10 20:57] VITALS: BP 96/43
--- NOTE | 2018-10-10 23:35 | NUR ---
PT NO LONGER HAS EPISODES OF WATERY/LOOSE STOOL. PER QUYNH OCHOA TO D/C CONTACT ISOLATION AT THIS TIME.
--- NOTE | 2018-10-11 00:31 | NUR ---
PT RESTING. BREATHING EVEN AND UNALBORED ON RA WITH NO SOB NOTED. NO SIGNS OF DISTRESS. CALL BUTTON WITHIN REACH. SAFETY PRECAUTIONS IN PLACE. GUARDS AT BEDSIDE. WILL CONTINUE TO MONITOR.
--- NOTE | 2018-10-11 00:48 | NUR ---
ASSISTED PT TO USE BEDPAN. PT HAD A MEDIUM SIZE SOFT BM. PT IN NO DISTRESS. WILL MONITOR.
--- NOTE | 2018-10-11 04:00 | NUR ---
PT RESTING. BREATHING EVEN AND UNLABORED WITH NO SIGNS OF DISTRESS. CALL BUTTON WITHIN REACH. SAFETY PRECAUTIONS IN PLACE. GUARDS AT BEDSIDE. WILL CONTINUE TO MONITOR.
--- NOTE | 2018-10-11 05:06 | NUR ---
PT SLEPT MOST OF THE NIGHT WITH NO SIGNS OF DISTRESS. BREATHING EVEN AND UNLABORED ON RA. NO SOB NOTED. IV PATENT, SL. PT HAD SOFT BM X2. PT ABLE TO TURN AND REPOSITIONED NEEDED. PT DENIES ANY PAIN. SAFETY PRECAUTIONS IN PLACE. GUARDS AT BEDSIDE. CALL BUTTON WITHIN REACH. SAFETY PRECAUTIONS IN PLACE. WILL CONTINUE TO MONITOR AND ENDORSE CARE TO DAY SHIFT RN.
[2018-10-11 05:44] VITALS: BP 90/43
[2018-10-11 07:21] LABS: BASOPHIL % 0.3 % (0-2)
--- NOTE | 2018-10-11 07:25 | NUR ---
PT RESTING. BREATHING EVEN AND UNLABORED WITH NO SIGNS OF DISTRESS. CALL BUTTON WITHIN REACH. SAFETY PRECAUTIONS IN PLACE. GUARDS AT BEDSIDE. ENDORSED CARE TO DAY SHIFT RN, ALL QUESTIONS ADDRESSED.
--- NOTE | 2018-10-11 07:25 | NUR ---
RECEIVED PT FROM INSPECTOR PRECISION ASSEMBLY. PT AWAKE, ALERT. A/OX4. PT ON ROOM AIR WITH NO RESP DISTRESS NOTED. PT ON TELE 15, DENIES CHEST PAIN. IV ACCESS RFA CDI SALINE LOCKED. PT HAS [facility] CATH FOR HEMODIALYSIS. PT TO HAVE HD TODAY. ACTIVE BS NOTED. PT REPORTS FORMED STOOL TODAY. PERIPHERAL PULSES TO BUE PALPABLE. EDEMA NOTED TO BLE. PT HAS DARK DISCOLORATION TO BLE AND TOES. PT NOTED TO HAVE JAUNDICE. SAFETY MEASURES IN PLACE, BED LOW AND LOCKED. CALL LIGHT WITHIN REACH.
[2018-10-11 07:26] LABS: PLATELET COUNT 52 x10^3mcL (130-400); RED CELL DISTRIBUTION WIDTH 24.6 % (11.5-14.5)
[2018-10-11 07:45] LABS: CALCIUM 8.4 mg/dL (8.5-10.1); CARBON DIOXIDE 20.6 mmol/L (21-32); POTASSIUM SERUM 3.4 mmol/L (3.5-5.1)
[2018-10-11 07:47] LABS: ALBUMIN 1.7 g/dL (3.4-5.0)
[2018-10-11 07:49] LABS: BILIRUBIN TOTAL 35.7 mg/dL (0.20-1.00); CREATININE SERUM 8.2 mg/dL (0.7-1.3)
[2018-10-11 08:09] LABS: TOTAL PROTEIN, SERUM 6.4 g/dL (6.4-8.2)
--- NOTE | 2018-10-11 09:24 | NUR ---
DUE MEDS ADMINISTERED ORDERED. PT BP 89/46. MIDODRINE ADMINISTERED ORDERED. PT ASYMPTOMATIC AT THIS TIME. PT UP TO RESTROOM WITH PT. TOLERATED WELL. FORMED STOOL NOTED. NO ACUTE DISTRESS OR DISCOMFORT NOTED AT THIS TIME. SAFETY MEASURES MAINTAINED.
[2018-10-11 10:09] VITALS: BP 89/46
[2018-10-11 11:34] LABS: rbc morphology (normal/abnorm) ABNORMAL (NORMAL)
--- NOTE | 2018-10-11 11:36 | NUR ---
Follow-up Nutrition Assessment: 226T/B FREDDIE FINN RADHA HR Dx: Septic shock, liver cirrhosis PMHx: ESLD Cirrhosis, HEP C, multiple substance abuses, ([facility] resident) Labs: (10/11): BUN 75H, CREAT 8.2H, AST 164H, NA 128L, ALB 1.7L, K 3.4L, BG 62L Meds: D50%, humulin, pepcid, phoslo Diet: Regular PO Intake: (10/10) breakfast 30%, (10/09) breakfast 30%, (10/08) lunch 10%, breakfast 0% Weights in kg: (09/28) 101.8, (10/06) 102, (10/11) 102.2 - fluctuations may be d/t edema, HD Skin: optifoam to sacral-coccygeal area, dressing to R neck Skin tear, BLE with dark discoloration/blister, BL toe gangrene. Jaundice color skin Niko: 14 I/Os: (10/10) 1770/200 (1570) Edema: edema to BLE GI: Last BM: 10/11 RDN Visit (10/11): Patient was alert and oriented. Patient denies N/V/D/C. Pt did not drink ONS Nepro and 2 cans were lying un-opened. Discussed the importance of consuming protein and calories especially d/t HD. Per consultation note (10/10), Continue the antibiotics per ID recommendation. Continue with hemodialysis per renal recommendation. Estimated Nutritional Needs based on adjusted body weight 80.3 kg Energy: 7265-2553 kcal/day (30-32 kcal/kg- HD needs, ESLD, skin integrity) Protein: 96-112 g/d (1.2-1.4 g/kg)- HD, wounds Fluid: per MD as patient on HD Nutrition Diagnosis 1. Inadequate protein energy intake related to medical condition liver cirrhosis as evidenced by low PO, puree diet (ongoing). 2. Increased nutrient needs related to increased metabolic demands as evidenced by pt. on hemodialysis.(ongoing) Intervention 1. Recommend Renal diet w/ Nepro TID. Discussed recommendations with Dr. Bentley and DENISE Ochoa. Monitor/Evaluate Goal: Have pt meet at least 75% of estimated needs Monitor: TF intake/ tolerance, Labs, GI function F/U in 3-5 days as moderate risk
--- NOTE | 2018-10-11 11:36 | NUR ---
1. Recommend Renal diet w/ Nepro TID. Discussed recommendations with Dr. Bentley and DENISE Ochoa.
--- NOTE | 2018-10-11 12:26 | NUR ---
PT GETTING HEMODIALYSIS AT THIS TIME. PT ASLEEP. UNABLE TO GIVE PHOSLO AT THIS TIME. WILL ATTEMPT WHEN PT EATS.
--- NOTE | 2018-10-11 12:35 | NUR ---
HEMODIALYSIS NURSE SPOKE WITH DR LICONA. PER DOCTOR OK TO ORDER HEPARIN FOR MARIAM CATH PORTS X2 WITH PLATELETS OF 52.
[2018-10-11 13:55] VITALS: BP 97/55
--- NOTE | 2018-10-11 14:14 | NUR ---
HEPARIN 5000 UNITS X 2 VIALS GIVEN TO DIALYSIS NURSE FOR DIALYSIS PORT
--- NOTE | 2018-10-11 14:42 | NUR ---
TB TEST READ AT THIS TIME. TEST IS NEGATIVE.
--- NOTE | 2018-10-11 14:45 | NUR ---
PT STILL RECEIVING DIALYSIS, PT ASLEEP AT THIS TIME WITH NO ACUTE DISTRESS NOTED.
--- NOTE | 2018-10-11 16:00 | NUR ---
PT HEMODIALYSIS COMPLETE. PER HD NURSE, PT WITH 1 LITER OUT. PT AWAKE, ALERT AT THIS TIME WITH NO ACUTE DISTRESS NOTED. SAFETY MAINTAINED.
--- NOTE | 2018-10-11 16:17 | NUR ---
PT HAD SOFT BM. PT CLEANED AND REPOSITIONED. SACRAL WOUND CLEANED WITH NS AND ZGUARD APPLIED. NEW OPTIFOAM PLACED. APPLIED BETADINE TO PATIENT TOES. NO ACUTE DISTRESS NOTED AT THIS TIME. SAFETY MAINTAINED.
[2018-10-11 17:19] VITALS: BP 103/50
--- NOTE | 2018-10-11 18:20 | NUR ---
PT STABLE AT THIS TIME. ALL NEEDS TENDED TO THROUGHOUT SHIFT. SAFETY MEASURES IN PLACE. WILL CONTINUE TO MONITOR AND ENDORSE CARE TO QUALITY MANAGER.
--- NOTE | 2018-10-11 19:35 | NUR ---
RECEIVED PT AOX4 ABLE TO RESPOND TO COMMANDS, MAKE NEEDS KNOWN. PUPILS 3MM BRISK RESPONSE TO LIGHT B/L, PERRLA. NO FACIAL DROOP, NO NEURO DEFICITS NOTED. TRACHEA MIDLINE, NO DRAINAGE TO EENT. NO EENT COMPLAINTS. [facility] CATH CDI FOR DIALYSIS. LUNG SOUNDS DIMINISHED BILATERALLY, ON ROOM AIR. CHEST RISE/FALL SYMEMTRIC, E/U BREATHING NOTED. DENIES SOB. NO ACUTE RESP DISTRESS.PT DENIES CHEST PAIN. PULSES PALPABLE X4 EXTREMITIES. EDEMA TO BLE. RFA 22G IV PORT PATENT, SALINE LOCKED, NO S/S OF INFILTRATION, DRESSING CDI.GEN WEAKNESS. NON WEIGHT BEARING TO LLE, HEEL BOOTS INTACT BLE.NO S/S OF N/V.ACTIVE BOWEL SOUNDS X4 QUADRANTS, ABD SOFT/ROUND. NO BM NOTED.F/C DRAINING TO GRAVITY, DARK ADALID/BROWN URINE. NO PENILE EDEMA OR DISCHARGE NOTED.DARK DISCOLORATION TO BLE AGUIRRE, FEET, TOES TO BLE. LEFT HEEL WOUND AND SACRAL WOUND WITH OPTIFOAM CDI. BED AT LOWEST SETTING, CALL LIGHT WITHIN REACH, HOB ELEVATED 30 DEGREES. WILL CONT TO MONITOR.
[2018-10-11 21:15] VITALS: BP 99/45
--- NOTE | 2018-10-11 21:23 | NUR ---
SKIN PREP APPLIED TO LEFT HEEL PER WOUND CARE RECOMMENDATION. CHECKED SACRALCOCCYX DRESSING, OPTIFOAM DRESSING CDI AT THIS TIME. BLE HEEL PROTECTORS REMAIN INTACT.
--- NOTE | 2018-10-12 02:43 | NUR ---
PT REPORTING 6/10 GENERALIZED ABD PAIN. MEDICATED PAIN MEDICATION PER EMAR.
--- NOTE | 2018-10-12 04:33 | NUR ---
PT SLEEPING BUT EASILY AROUSABLE TO TACTILE STIMULI. PT DENIES SOB, NO ACUTE RESP DISTRSS, CHEST RISE/FALL SYMMETRIC, E/U BREATHING.
[2018-10-12 05:52] VITALS: BP 102/47
[2018-10-12 07:02] LABS: CALCIUM 8.4 mg/dL (8.5-10.1); CARBON DIOXIDE 21.8 mmol/L (21-32); POTASSIUM SERUM 3.9 mmol/L (3.5-5.1)
--- NOTE | 2018-10-12 07:06 | NUR ---
PHYSICAL THERAPY DAILY NOTES CO-SIGN All documentation done by the Negative Stripper for 10/11/18 has been reviewed. I agree with the documentation. Reviewed/Co-Signed by: Naomi Mooney PT Documentation Done by: ANILA BROWN PTA
--- NOTE | 2018-10-12 07:23 | NUR ---
GAVE REPORT TO DENISE WILKERSON. UPDATES PROVIDED, RONI ANSWERED.
--- NOTE | 2018-10-12 07:50 | NUR ---
RECEIVED PATIENT SLEEPING IN BED, AROUSABLE. PATIENT DENIES PAIN AT THIS TIME. TELE MONITOR IN PLACE. EDEMA NOTED TO BLE, EDUCATED PATIENT TO MAINTAIN BLE ELEVATED WITH PILLOW. LUNG SOUNDS DIMINISHED TO THE BASES, PATIENT ON ROOM AIR, DENIES SOB. LOMBARDI CATH DRAINING TO GRAVITY, DARK BROWN URINE NOTED. GAKristian BECERRA CATH, C/D/I. HEEL BOOTS APPLIED, AIR MATRESS IN PLACE. IV TO RFA C/D/I & FLUSHES WELL WITH 10ML OF NS, NO S/S OF INFILTRATION. CIM GUARDS AT BEDSIDE X2 FOR SAFETY PRECAUTIONS, CALL LIGHT WITHIN REACH, BED IN LOW POSITION, WILL CONTINUE TO MONITOR FOR CHANGES.
[2018-10-12 08:12] LABS: CREATININE SERUM 7.1 mg/dL (0.7-1.3)
[2018-10-12 09:31] VITALS: BP 104/51
--- NOTE | 2018-10-12 10:35 | NUR ---
NOTIFIED DR. SUE ON DIETARY RECCOMENDATIONS OF DIET CHANGE TO RENAL DIET, & NEPRO TID. DR. SUE GAVE TORB FOR DIET CHANGE TO RENAL DIET WITH NEPRO TID. WILL CARRY OUT ORDERS AT THIS TIME.
--- NOTE | 2018-10-12 11:40 | NUR ---
PHYSICAL THERAPY AT BEDSIDE.
--- NOTE | 2018-10-12 12:03 | NUR ---
DR SUE AWARE PATIENT WAS C/O MODERATE PAIN TO BLE, & WAS C/O NOT BEING ABLE TO SLEEP LAST NIGHT. DR SUE GAVE TELEPHONE ORDER/READBACK FOR NORCO 5MG/325MG Q6HP FOR MODERATE PAIN, AND AMBIEN 10MG QHSP FOR INSOMNIA. WILL CARRY OUT TORB AT THIS TIME.
--- NOTE | 2018-10-12 12:15 | NUR ---
PATIENT WAS C/O 08/01 TO BILATERAL LOWER EXTREMITIES, MEDICATED PATIENT WITH NORCO PER PROTOCOL (SEE EMAR). REPOSITIONED PATIENT FOR COMFORT, CALL LIGHT WITHIN REACH, BED IN LOW POSITION. WILL CONTINUE TO MONITOR AND MANAGE PAIN.
[2018-10-12 12:38] VITALS: BP 105/53
[2018-10-12 12:42] LABS: BILIRUBIN TOTAL 37.9 mg/dL (0.20-1.00)
--- NOTE | 2018-10-12 15:48 | NUR ---
PHYSICAL THERAPY DAILY NOTES CO-SIGN All documentation done by the Utility Worker Production for 10/12/18 has been reviewed. I agree with the documentation. Reviewed/Co-Signed by: Seth Benavides PT Documentation Done by:DIYA FISHER, SIGNAL TOWER DIRECTOR
--- NOTE | 2018-10-12 17:03 | NUR ---
PROVIDED PATIENT WITH DRESSING CHANGE TO SACRALCOCCYX, CLEANSED WITH WOUND WITH NS & APPLIED ZGAURD. X2 TO THE LEFT BUTTOCKS & X1 TO THE SACRALCOCCYX PRESSURE ULCER. #1 SACRALCOCCYX PRESSURE ULCER MEASUREMENTS 2.3X2.7X.1CM. #2 LEFT BUTTOCKS PRESSURE ULCER MEASUREMENTS 1X.3X.1CM, #3 LEFT BUTTOCKS PRESSURE ULCER MEASUREMENTS 1X.5X.1CM. PROVIDED PATIENT WITH SUPPLIES FOR ORAL CARE, PATIENT WAS ABLE TO PROVIDE ORAL CARE FOR HIMSELF. WILL CONTINUE TO MONITOR PATIENT, CALL LIGHT WITHIN REACH.
--- NOTE | 2018-10-12 17:03 | NUR ---
PROVIDED PATIENT WITH DRESSING CHANGE TO SACRALCOCCYX, CLEANSED WITH WOUND WITH NS & APPLIED ZGAURD. X2 TO THE LEFT BUTTOCKS & X1 TO THE SACRALCOCCYX PRESSURE ULCER. #1 SACRALCOCCYX PRESSURE ULCER MEASUREMENTS 2.3X2.7CM SUPERFICIAL DEPTH #2 LEFT BUTTOCKS PRESSURE ULCER MEASUREMENTS 1X.3CM, #3 LEFT BUTTOCKS PRESSURE ULCER MEASUREMENTS 1X.5CM. PROVIDED PATIENT WITH SUPPLIES FOR ORAL CARE, PATIENT WAS ABLE TO PROVIDE ORAL CARE FOR HIMSELF. WILL CONTINUE TO MONITOR PATIENT, CALL LIGHT WITHIN REACH.
--- NOTE | 2018-10-12 17:26 | NUR ---
WOUND CARE RE-EVALUATION NOTE: WOUND ASSESSMENT DONE WITH PRIMARY RN TO PT. PER PRIMARY RN THAT LEFT FOOT TREATMENT DONE BY PODIATRY AND SHE SPOKE TO PODIATRY NEED TO CLARIFY ORDERS. PODIATRY PLACED ORDER TO LEFT FOOT/TOES. 10/10/2018. I ALSO PAGED DR. RIVERA @ [id number] TODAY.POC DISCUSSED WITH PRIMARY RN, AND PT. PT VERBALIZES UNDERSTANDING. PER PT. AND GUARD ANT BED SIDE THAT PODIATRY SEEN HIM THIS AFTERNOON. INTEGUMENTARY: -BILATERAL LOWER EXTREMITIES ANTERIOR AND POSTERIOR WITH MULTIPLE DRY SCABS DARK PIGMENTATION DRY SCALY SKIN WITH NO OPEN ACTIVE WOUND -RIGHT DORSAL FEET/TOES WITH LIGHT PURPLE DISCOLORATION FEW DRY SCALY SKIN NOTICE AND SKIN INTACT -LEFT DORSAL FOOT WITH 3RD AND 4TH TOES GANGRENE EXAMED AND TREATED BY PODIATRY -LEFT LATERAL HEEL PRESSURE ULCER UN-STAGEABLE AREA UNABLE TO ASSESS PODIATRY TREATED WITH SOAKED BETADINE DRESSING IN PLACE AND PENDING CLARIFICATION OF ORDER -SACRALCOCCYX PRESSURE ULCER STAGE 2 WITH WOUND BEDS 100% GRANULATING TISSUE, MOIST SUPERFICIAL DEPTH, NO ODOR. PREVIOUSLY BUTTERFLY SHAPE AND DENUDED PURPLE TOM-WOUND HEALING PROGRESS TO MULTIPLE SMALL AREAS AND LARGEST TO SACRALCOCCYX 2.3X2.7CM SUPERFICIAL DEPTH AND 2 SMALLER AREAS TO RIGHT BUTTOCK 1X0.5CM. AND 1XO.3 CM SUPERFICIAL DEPTH WITH SURROUNDING SKIN DRYNESS WITH REDNESS / LIGHT PURPLE COLOR -INCONTINENT ASSOCIATE DERMATITIS TO SCROTAL AND PERINEUM, RIGHT EAR SCABS AND CHEST/NECK SKIN TEAR RESOLVED RECOMMENDATIONS: -PENDING CLARIFICATION ORDER FROM CHARGE LOADER TO LEFT FOOT INCLUDING LEFT HEEL -PLEASE FOLLOW PODIATRY WEIGHT BEARING INSTRUCTIONS -APPLY HYDRAGUARD TO BLE DRYNESS AREA QD AND LEAVE IT OPEN TO AIR. -CLEANSE SACRALCOCCYX WITH NS. PAT. DRY APPLY Z GUARD AND OPTIFOAM QD AND PRN IF SOILING -APPLY HEEL RAISERS TO BILATERAL HEELS WHEN IN BED -OFFLOAD BILATERAL HEELS BY PLACING PILLOWS UNDER CALVES UNLESS OTHERWISE CONTRAINDICATED -PRESSURE REDISTRIBUTION SURFACE THERAPY -TURN AND REPOSITION Q2H, OFFLOAD SACRALCOCCYX -CONTINUE TO FOLLOW RD RECOMMENDATIONS RECOMMENDATIONS DISCUSSED WITH PRIMARY RN WILL FOLLOW UP PATIENT Q7-10 DAYS AND PRN. PLEASE CONTACT WOUND CARE NURSE FOR ANY QUESTIONS AND CHANGES IN SKIN CONDITION.
[2018-10-12 17:38] VITALS: BP 105/53
--- NOTE | 2018-10-12 18:40 | NUR ---
PODIATRY AT BEDSIDE FOR DEBRIEMENT TO JAIDEN FEET, DRESSING CHANGE DONE BY PODIATRY. PHOTOS TAKEN AT THIS TIME & PLACED IN CHART. PATIENT DENIES PAIN. NO ACUTE CHANGES THROUGH OUT SHIFT. PATIENT DENIES SOB, ON ROOM AIR. LOMBARDI CATH DRAINING TO GRAVITY. HEEL BOOTS & AIR MATRESS IN PLACE. IV TO RFA C/D/I & PATENT, NO S/S OF INFILTRATION. [facility] CATH C/D/I. CALL LIGHT WITHIN REACH, BED IN LOW POSITION, WILL ENDORSE REPORT TO NIGHT. CIM AT BEDSIDE X2 FOR SAFETY PRECAUTION.
--- NOTE | 2018-10-12 19:20 | NUR ---
REPORT RECEIVED FROM DAY SHIFT RN. PATIENT WAS SEEN AND IS RESTING COMFORTABLY IN BED. NO DISTRESS NOTED. SLEEPING, BUT EASILY AROUSABLE BY VERBAL STIMULI. BREATHING EVEN AND UNLABORED ON ROOM AIR. NO SOB OR RESP DISTRESS NOTED. DENIES CHEST PAIN/PRESSURE. C/O 8/10 PAIN TO THE FEET BILATERALLY. WILL MEDICATION. LOMBARDI CATH IN PLACE DRAINING LOW URINE OUTPUT. URINE IS DARK BROWN IN COLOR. DRAINING BY GRAVITY. IV TO TE RFA. SALINE LOCK. PATENT AND INTACT. NO REDNESS OR SWELLING NOTED. [facility] CATH IN PLACE FOR HD. OPTIFOAM TO SACRAL, CDI. BLE DARK PURPLE DISCOLORTION. LEFT FOOT WRAPPED IN MANJULA WRAP, CDI. BILATERALLY FEET WITH BETADINE. HEEL PROTECTOR BOOTS IN PLACE. GENERALIZED JAUNDICE. JAUNDICE TO SCELRA. BED IS LOCKED AND IN THE LOWEST POSITION. SIDE RAILS UP X2. CALL LIGHT IS WITHIN REACH. WILL CONTINUE TO MONITOR.
--- NOTE | 2018-10-12 20:01 | NUR ---
C/O 8/10 PAIN IN BILATERALLY FEET. PRN NORCO GIVEN PRESCRIBED. EDUCATED PATIENT ON MEDS AND POSS SIDE EFFECTS. DEMONSTRATED UNDERSTANDING. NO DISTRESS NOTED. CALL LIGHT IS WITHIN REACH. WILL CONTINUE TO MONITOR.
[2018-10-12 20:49] VITALS: BP 98/49
--- NOTE | 2018-10-12 21:25 | NUR ---
REQUESTING AMBIEN FOR RESTLESSNESS AND INSOMNIA. ADMINISTERED PRN AMBIEN PRESCRIBED. EDUCATED PATIENT ON MED AND POSS SIDE EFFECTS. DEMONSTRATED UNDERSTANDING. NO DISTRESS NOTED. BREATHING EVEN AND UNLABORED. CALL LIGHT IS WITHIN REACH. WILL CONTINUE TO MONITOR
--- NOTE | 2018-10-13 00:15 | NUR ---
RESTING IN BED WITH EYES CLOSED. NO DISTRESS NOTED. BREATHING EVEN AND UNLABORED. NO SOB NOTED. NO S/S OF PAIN NOTED. SAFETY MEASURES IN PLACE. CALL LIGHT IS WITHIN REACH. WILL CONTINUE TO MONITOR.
--- NOTE | 2018-10-13 02:49 | NUR ---
PATIENT RESTING IN BED WITH EYES CLOSED. NO DISTRESS NOTED. BREATHING EVEN AND UNLABORED ON ROOM AIR. NO SOB OR RESP DISTRESS NOTED. NO S/S OF PAIN NOTED. HEELS OFFLOADS W/ HEEL PROTECTOR BOOTS IN PLACE. LOMBARDI CATH IN PLACE W/ LOW URINE OUTPUT OF DARK BROWN COLOR URINE. DRAINING BY GRAVITY. SAFETY MEASURES IN PLACE. CALL LIGHT IS WITHIN REACH. WILL CONTINUE TO MONITOR.
--- NOTE | 2018-10-13 05:13 | NUR ---
WOUND CARE PROVIDED TO TOES PER WOUND RECOMMENDATIONS. PAINTED BILATERALLY TOES WITH BETADINE, ANNA. LEFT FOOT DRESSING IN PLACE, CDI. OPTIFOAM TO SCRAL, CDI.
[2018-10-13 05:32] VITALS: BP 97/45
--- NOTE | 2018-10-13 06:55 | NUR ---
RESTED IN LONG INTERVALS THROUGHOUT THE NIGHT. NO ACUTE CHANGES NOTED. BREATHING EVEN AND UNLABORED ON ROOM AIR. C/O PAIN X1 THROUGHOUT THE NIGHT. MEDICATED WITH PRN NORCO WITH GOOD RELIEF. IV TO THE RFA, SL. PATENT AND INTACT. NO REDNESS OR SWELLING NOTED. ALY BECERRA CATH. HD TODAY AT 0800. PATIENT IS AWARE. LOMBARDI CATH IN PLACE WITH LOW URINE. DARK BRWON COLOR NOTED. DRAINING BY GRAVITY. 20ML OUTPUT NOTED. HEEL BOOTS IN PLACE. NO DISTRESS NOTED. SAFETY MEASURES IN PLACE. CALL LIGHT IS WITHIN REACH. WILL ENDORSE CARE TO DAY SHIFT RN.
--- NOTE | 2018-10-13 07:20 | NUR ---
RECEIVED REPORT FROM CARLY WALKER. PATIENT RESTING IN BED WITH [employer]IM OFFICERS AT BEDSIDE. SALINE LOCK TO RFA IS PATENT AND INTACT. NO REDNESS OR PAIN.TELE # [address] NO C/O CHEST PAIN. PT ON ROOM AIR. NO C/O SOB AND NO DISTRESS NOTED. BILATERAL FEET WRAPPED WITH KERLIX AND HEEL PROTECTORS ARE IN PLACE. LOMBARDI IN PLACE DRAINING MINIMAL DARK BROWNISH URINE. ALL QUESTIONS AND CONCERNS ADDRESSED.
--- NOTE | 2018-10-13 08:18 | NUR ---
IN TO SEE PATIENT AND ADMINISTER MEDICATION (SEE eMAR). PATIENT RESTING COMFORTABLY IN BED WITH CIM OFFICERS AT BEDSIDE. SPORTS THERAPIST CURRENTLY TAKING VITALS. ALL NEEDS MET.
[2018-10-13 08:45] VITALS: BP 92/41
--- NOTE | 2018-10-13 12:44 | NUR ---
IN TO SEE PATIENT AND ADMINISTER MEDICATION (SEE eMAR). PATIENT RESTING IN BED EATING LUNCH WITH CIM OFFICERS AT BEDSIDE. PATIENT ALSO REQUESTED BEDPAN AT THIS TIME AND HAD A SECOND BM. BOTH BMS SOFT AND DARK. NO DISCOMFORT. OPTIFOAM ALSO CHANGED AT THIS TIME. ALL OTHER NEEDS MET.
[2018-10-13 13:01] VITALS: BP 102/42
--- NOTE | 2018-10-13 14:48 | NUR ---
SPOKE WITH HD RN TO CONFIRM THAT PATIENT IS INDEED HAVING DIALYSIS TODAY. HD RN CONFIRMED.
[2018-10-13 16:50] VITALS: BP 105/51
--- NOTE | 2018-10-13 18:06 | NUR ---
PER PT REQUEST DR SUE WAS CALLED FOR OK TO REMOVE LOMBARDI. INFORMED DR SUE THAT PATIENT ONLY PRODUCED 100 ML OF DARK REDDISH BROWN URINE ALL DAY. DR SUE OK TO REMOVE LOMBARDI.
--- NOTE | 2018-10-13 18:10 | NUR ---
PT HAD ANOTHER BM THIS TIME LOOSE. OPTIFOAM CHANGED AGAIN AND MEDICATION ADMINISTERED.
--- NOTE | 2018-10-13 19:35 | NUR ---
PT RESTING IN BED, CURRENTLY RECEIVING HD. HD NURSE AT BEDSIDE. PT DROWSY BU EASY TO AROUSE, PT SEVERELY JAUNDICE. TELE #15 NSR DENIES CP. PULSES PALPABLE BILAT UE, WEAK PEDAL PULSES. BILAT FEET IN PREVALONE BOOTS. RESP EVEN AND UNLABORED, EXP GRUNTING NOTED. DENIES SOB. ABD SOFT, DENIES ABD PAIN. PT INCONTINENT AT TIMES. PT WITH LOMBARDI CATH DRAINING DARK URINE, PT REPORTS WANTING HIS LOMBARDI OUT, DR LINETTE WILDER'S D/C'ING HIS LOMBARDI, WILL FOLLOW THROUGH WITH ORDERS. PT GENERALIZED WEAKNESS, WORKING WITH PT. PT HAS BLE BLACK/PURPLE SKIN, WOUND CARE WORKING WITH PT. PER DAYSHIFT, PODIATRY PEELED OFF OLD SKIN, GAUZE SOAKED WITH BETADINE, LAYED BETWEEN TOES. WILL FOLLOW THORUGH WITH ORDERS. SACRAL WOUNDX3 COVERED WITH OPTIFORM, CDI. PT HD PORT TO RIJ. DSG PEELING OFF, WILL REPLACE PER ORDER. IV SALINE LOCKED AT RFA, NO REDNESS, SWELLING OR PAIN NOTED. ALL COMFORT AND SAFETY MEASURES PROVIDED FOR, CALL LIGHT WITHIN REACH, BED IN LOWEST POSITION, WILL CONTINUE TO MONITOR.
--- NOTE | 2018-10-13 19:56 | NUR ---
REPORT GIVEN TO JONO WALKER. PATIENT RESTING IN BED WITH CIM OFFICERS AT BEDSIDE AND HAVING DIALYSIS. ALL QUESTIONS AND CONCERNS ADDRESSED. ALL CARES ENDORSED.
[2018-10-13 20:59] VITALS: BP 95/46
--- NOTE | 2018-10-14 01:10 | NUR ---
PT HAD LOOSE BM, UNABLE TO MAKE IT IN BED PERERA. PT CLEANED, OPTIFORM CHANGED ON BOTTOM D/T SOILAGE. LINENS CHANGED, PT TOLERATED WELL. CLAMPED PT LOMBARDI CATH FOR BLADDER TRAINING. EDUCATED PT TO LET US KNOW WHEN HE FEELS THE URGE TO URINATE AND WILL UNCLAMP. PT VERBALIZES UNDERSTANDING. CALL LIGHT WITHIN REACH, BED IN LOWEST POSITION, WILL CONTINUE TO MONITOR.
[2018-10-14 04:55] VITALS: BP 91/37
--- NOTE | 2018-10-14 05:15 | NUR ---
PT RESTED IN INTERVALS DURING SHIFT, NO ACUTE CHANGES OCCURRING OVERNIGHT. PT HAD HD 10/13 W/ NO FLUID REMOVED D/T LOW BP. REMOVED PT LOMBARDI D/T DISCOMFORT, PT EDUCATED ABOUT USING URINAL SO STRICT I & O'S CAN BE MONITORED. PT VERBALIZES UNDERSTANDING. PT HAD ON LOOSE DARK STOOL, REPLACED OPTIFORM TO SACRAL AREA. REMAINS CDI. PT DENIES N/V/D DURING SHIFT, RIJ MARIAM CATH REMAINS PATENT, NO REDNESS, SWELLING OR PAIN NOTED. IV TO RFA REMAINS PATENT, NO REDNESS, SWELLING OR PAIN NOTED. ALL COMFORT AND SAFETY MEASURES PROVIDED FOR, CALL LIGHT WITHIN REACH, BED IN LOWEST POSITION, WILL CONTINUE TO MONITOR.
[2018-10-14 05:45] VITALS: BP 98/56
--- NOTE | 2018-10-14 07:04 | NUR ---
PERFORMED DSG CHANGE TO [facility] MARIAM CROUCH D/T PEELING UP AND SOILED, PT TOLERATED WELL. ALL COMFORT AND SAFETY MEWASURES PROVIDED FOR, CALL LIGHT WITHIN REACH, BED IN LOWEST POSITION, WILL ENDORSE CARE TO DAYSHIFT NURSE.
--- NOTE | 2018-10-14 07:30 | NUR ---
RECEIVED PATIENT ASLEEP AROUSABLE, DENIES PAIN AT THIS TIME. NO DISTRESS NOTED. TELE #15 SR W/ HR 89. RIJ MARIAM DRESSING CDI. IV TO RFA INTACT AND SL NOTED. CALL LIGHT WITHIN REACH. 2 GUARDS AT BEDSIDE.
--- NOTE | 2018-10-14 07:40 | NUR ---
PHYSICAL THERAPY DAILY NOTES CO-SIGN All documentation done by the Licensed Acupuncturist for 10/13/18 has been reviewed. I agree with the documentation. Reviewed/Co-Signed by: Naomi Mooney PT Documentation Done by:ANILA BROWN PTA
[2018-10-14 07:42] LABS: BILIRUBIN DIRECT 25.26 mg/dL (0.0-0.2); CALCIUM 8.5 mg/dL (8.5-10.1); CARBON DIOXIDE 20.4 mmol/L (21-32); POTASSIUM SERUM 3.8 mmol/L (3.5-5.1); TOTAL PROTEIN, SERUM 6.7 g/dL (6.4-8.2)
[2018-10-14 07:46] LABS: ALBUMIN 1.6 g/dL (3.4-5.0)
[2018-10-14 07:47] LABS: CREATININE SERUM 6.6 mg/dL (0.7-1.3)
[2018-10-14 08:18] LABS: BASOPHIL % 0.6 % (0-2)
[2018-10-14 08:19] LABS: PLATELET COUNT 58 x10^3mcL (130-400); RED CELL DISTRIBUTION WIDTH 24.7 % (11.5-14.5)
--- NOTE | 2018-10-14 09:02 | NUR ---
PATIENT UP WITH PT TO BATHROOM AND BACK TO BED SAT UP AT SIDE OF BED, C/O TIRED. ALL PO MEDS ADMINISTERED WITHOUT PROBLEM. PT ASSIST PATIENT BACK IN BED. CALL LIGHT WITHIN REACH. 2 GUARDS REMAIN AT BEDSIDE.
[2018-10-14 09:50] VITALS: BP 92/36
[2018-10-14 10:25] LABS: rbc morphology (normal/abnorm) ABNORMAL (NORMAL)
[2018-10-14 10:45] VITALS: BP 100/56
--- NOTE | 2018-10-14 12:32 | NUR ---
PATIENT AWAKE/ALERT IN BED, NO COMPLAINS. DUE MEDS GIVEN. LUNCH TRAY DELIVERY BUT PATIENT STATED WILL EAT LATER. 2 GUARDS REMAIN AT BEDSIDE. CALL LIGHT WITHIN REACH.
--- NOTE | 2018-10-14 13:05 | NUR ---
SWETHA HERNANDEZ CALL TO INFORM RN PATIENT DISCHARGE BACK TO [facility], LET GUARD KNOW SO THEY CAN CALL FOR TRANSPORTATION.
[2018-10-14 13:14] VITALS: Ht 172.7 cm; Wt 101.8 kg
[2018-10-14 13:32] VITALS: BP 100/56
--- NOTE | 2018-10-14 13:54 | NUR ---
PATIENT RESTING IN NO COMPLAIN, PERFORM WOUND CARE TO BILATERAL FEET AND TOES, SWAB WITH BETADINE ORDERED COVER WITH GAUZES AND KERLIX, SACRAL CLEANSE W/ NS PAT DRY, APPLY Z GUARD TO SITE COVER W/ OPTIFOAM. LEFT HEEL SWAB W/ SKIN PREP. LEFT FOOT MIDDLE TOE BLOOD SCANT AMOUNT, BLE DARK DRIED SCABS NO OPEN WOUND. RT FOOT ALL TOES W/ SKIN SLOUGHING NOTED, NO BLEEDING. SACRAL WOUND BED RED NOTED. NO DRAINAGE. DISCHARGE INSTRUCTION GIVEN TO PATIENT, ALL PAPER WORKS GAVE TO GUARD AND WAITING FOR GUARD TO GIVE RN TIME FOR GAS CHARGER.
--- NOTE | 2018-10-14 14:26 | NUR ---
PHYSICAL THERAPY DAILY NOTES CO-SIGN All documentation done by the [employer] for 10/14/18 has been reviewed. I agree with the documentation. Reviewed/Co-Signed by: Naomi Mooney PT Documentation Done by: ANILA BROWN PTA
--- NOTE | 2018-10-14 15:25 | NUR ---
PATIENT SLEEPING AT THIS TIME. PER GUARD MORTUARY TECHNICIAN VAN IS DELAY, DISPATCH WILL CALL BACK FOR TIME.
--- NOTE | 2018-10-14 15:50 | NUR ---
ASSISTING PATIENT IN CLOTHING FROM CORRECTION, TELE #15 REMOVED AND RETURN BY HAYLEE MATTHEWS, IV TO RFA REMOVED WITH CATHETER INTACT AND NO S/S OF INFECTION. GAUZES APPLIED TO SITE. ASSISTING PATIENT UP TO WHEELCHAIR PROVIDE BY GUARD, 4 GUARDS ACCOMPANIED PATIENT DOWN TO LOBBY AND CERTIFIED ORTHOTIST FOLLOWED. ALL BELONGINGS SEND WITH PATIENT.
== END 2018-10-14 15:56 | disposition other institution (70) | DRG 870 ==
LOC: ED 13:35 → DU 17:47 → IC 17:47 → DU 09-24 16:20
PROVIDERS: Internal Medicine; Internal Medicine Cardiovascular Disease; Specialist; ADMIT Internal Medicine
PROC: 5A1955Z Respiratory Ventilation, Greater than 96 Consecutive Hours (ICD-10-PCS; principal; 2018-09-16)
PROC: 0BH17EZ Insertion of Endotracheal Airway into Trachea, Via Natural or Artificial Opening (ICD-10-PCS; 2018-09-16)
PROC: 04HY32Z Insertion of Monitoring Device into Lower Artery, Percutaneous Approach (ICD-10-PCS; 2018-09-16)
PROC: 05HN33Z Insertion of Infusion Device into Left Internal Jugular Vein, Percutaneous Approach (ICD-10-PCS; 2018-09-18)
PROC: B544ZZA Ultrasonography of Left Jugular Veins, Guidance (ICD-10-PCS; 2018-09-18)
PROC: 5A1D70Z Performance of Urinary Filtration, Intermittent, Less than 6 Hours Per Day (ICD-10-PCS; 2018-09-18)
PROC: 30233R1 Transfusion of Nonautologous Platelets into Peripheral Vein, Percutaneous Approach (ICD-10-PCS; 2018-09-18)
PROC: 5A1D70Z Performance of Urinary Filtration, Intermittent, Less than 6 Hours Per Day (ICD-10-PCS; 2018-09-19)
PROC: 30233K1 Transfusion of Nonautologous Frozen Plasma into Peripheral Vein, Percutaneous Approach (ICD-10-PCS; 2018-09-19)
PROC: 5A1D70Z Performance of Urinary Filtration, Intermittent, Less than 6 Hours Per Day (ICD-10-PCS; 2018-09-21)
PROC: 5A1D70Z Performance of Urinary Filtration, Intermittent, Less than 6 Hours Per Day (ICD-10-PCS; 2018-09-23)
PROC: 5A1D70Z Performance of Urinary Filtration, Intermittent, Less than 6 Hours Per Day (ICD-10-PCS; 2018-09-26)
PROC: 5A1D70Z Performance of Urinary Filtration, Intermittent, Less than 6 Hours Per Day (ICD-10-PCS; 2018-09-28)
PROC: 5A1D70Z Performance of Urinary Filtration, Intermittent, Less than 6 Hours Per Day (ICD-10-PCS; 2018-09-30)
PROC: 5A1D70Z Performance of Urinary Filtration, Intermittent, Less than 6 Hours Per Day (ICD-10-PCS; 2018-10-01)
PROC: 0JH63XZ Insertion of Tunneled Vascular Access Device into Chest Subcutaneous Tissue and Fascia, Percutaneous Approach (ICD-10-PCS; 2018-10-03)
PROC: 05HM33Z Insertion of Infusion Device into Right Internal Jugular Vein, Percutaneous Approach (ICD-10-PCS; 2018-10-03)
PROC: 5A1D70Z Performance of Urinary Filtration, Intermittent, Less than 6 Hours Per Day (ICD-10-PCS; 2018-10-04)
PROC: 5A1D70Z Performance of Urinary Filtration, Intermittent, Less than 6 Hours Per Day (ICD-10-PCS; 2018-10-06)
PROC: 5A1D70Z Performance of Urinary Filtration, Intermittent, Less than 6 Hours Per Day (ICD-10-PCS; 2018-10-08)
PROC: 5A1D70Z Performance of Urinary Filtration, Intermittent, Less than 6 Hours Per Day (ICD-10-PCS; 2018-10-11)
PROC: 5A1D70Z Performance of Urinary Filtration, Intermittent, Less than 6 Hours Per Day (ICD-10-PCS; 2018-10-13)
DX: A41.59 Other Gram-negative sepsis (principal); R65.21 Severe sepsis with septic shock; J96.01 Acute respiratory failure with hypoxia; N18.6 End stage renal disease; G93.41 Metabolic encephalopathy; A04.72 Enterocolitis due to Clostridium difficile, not specified as recurrent; N17.9 Acute kidney failure, unspecified; E87.2 Acidosis; I76 Septic arterial embolism; I74.3 Embolism and thrombosis of arteries of the lower extremities; I96 Gangrene, not elsewhere classified; I73.9 Peripheral vascular disease, unspecified; K72.90 Hepatic failure, unspecified without coma; K74.60 Unspecified cirrhosis of liver; J44.9 Chronic obstructive pulmonary disease, unspecified; Z68.34 Body mass index [BMI] 34.0-34.9, adult; Z90.81 Acquired absence of spleen
CPT/HCPCS: 31500; 36556; 36600; 49083; 82962; 84439; 86580; 92526-GN; 92611-GN; 94150; 97110-GP; 97116-GP; 97530-GP; A4301; A4628; G0378; J0690; J0696; J0885-EC; J1644; J1720; J1815; J1940; J2001; J2185; J2250; J2370; J2543; J2550; J2704; J2765; J3010; J3260; J3430; J3480; J3490; J7030; J7040; J7042; J7050; J7060; P9035; P9045; P9047; P9059; Q0092; Q0163